=== PATIENT | male | born 1945 | race Caucasian/White ===

== ENCOUNTER 2017-02-09 08:41 | Inpatient (IN) | payer OTHER ==
[2017-02-09] MEDS ORDERED: ONDANSETRON 4 MG/2 ML VIAL IVP PRN (09:05)
[2017-02-09] MEDS ORDERED: ONDANSETRON DISINTEGRATING 4 MG TAB PO PRN (09:05)
[2017-02-09] MEDS ORDERED: ACETAMINOPHEN 325 MG TAB PO PRN (09:05)
[2017-02-09] MEDS ORDERED: LIDOCAINE 2% 5 ML SDV NB ONE ×2 (11:30→14:00)
[2017-02-09 13:17] LABS: INR 1.33 (0.83-1.16); PROTIME(PATIENT) 16.5 SEC (12.0-15.0)
[2017-02-09 13:18] LABS: APTT 69.6 SEC (23.0-38.0)
[2017-02-09 13:42] LABS: ALBUMIN 2.8 g/dL (3.5-5.0); BILIRUBIN,TOTAL 3.1 mg/dL (0.1-1.4); BILIRUBIN-CONJUGATED 0.7 mg/dL (0.0-0.5); BILIRUBIN-UNCONJUGATED 2.4 mg/dL (0.0-1.1); MAGNESIUM 1.7 mg/dL (1.6-2.3)
[2017-02-09 13:53] LABS: COLOR YELLOW; LEUKOCYTE ESTERASE,URINE NEGATIVE (NEGATIVE); NITRITE,URINE NEGATIVE (NEGATIVE)
--- NOTE | 2017-02-09 13:57 | GHP ---
[f rep st] HISTORY AND PHYSICAL DATE OF ADMISSION: 02/09/2017 CHIEF COMPLAINT: Anemia. HISTORY OF PRESENT ILLNESS: This is a 71-year-old male, presenting for anemia and elective chemother apy. The patient was recently hospitalized with nocturnal fevers, and diagnosed with diffuse B-cell lymphoma. The patient is presenting for initiation of chemotherapy and transfusion for anemia. The patient reports that his nighttime fevers have improved in the past several days prior to presentatio n. He denies any recent weight loss. Denies any shortness of breath, chest pain. Has had a mild in termittent headache in the mornings, it resolves with a dose of ibuprofen. No changes in his vision. Was having some shortness of breath, which he reports has been stable. De nies any cough, sputum production. Denies any pleuritic chest pain. Denies any nausea or vomiting. Denies diarrhea. Denies dysuria, hematuria. Denies any rashes. PAST MEDICAL HISTORY: Hypertension. SOCIAL HISTORY: Negative for tobacco, very occasional alcohol. No marijuana or illicit drugs. FAMILY HISTORY: Negative for lymphoma. ADVANCED DIRECTIVES: The patient wishes to be full cor, full tube. His would be his medical de cision maker. PHYSICAL EXAMINATION: VITAL SIGNS: Blood pressure 100/55, heart rate 87, respiratory rate 18, 90% o n room air, 36.7. GENERAL: This is a healthy-appearing, middle-aged male, in no acute distress. HE ENT: Notable for moist mucous membranes. Eye exam is negative for any icterus. CARDIAC: Patient i s regular rate and rhythm. PULMONARY: Clear to auscultation bilaterally. GASTROINTESTINAL: The patient has an obese abdomen. Positive bowel sounds. Soft in all 4 quadrants. MUSCULOSKELETAL: The patient has 2+ pitting edema above the knees, and is symmetric. SKIN: Negative for any rashes . NEUROLOGIC: He is alert and oriented x3. PSYCHIATRIC: He is pleasant and cooperative on interview and examinati on. DATA: INR is 1.33. Last chest imaging on this patient, showed normal cardiac silhouette. Under las t chest imaging that I personally reviewed and interpreted. Hemoglobin is 6.4 last checked, platelet s are 24. ASSESSMENT AND PLAN: This is a 71-year-old male with a new diagnosis, diffuse B-cell lymphoma. 1. Severe anemia. Hemoglobin 6.4. After discussion with Hematology, they do think this is likely r elated to the patient's underlying lymphoma and marrow involvement. We will perform a bone marrow bi opsy today. Patient has been written for a blood transfusion. We will follow his counts as he recei ves chemotherapy. 2. Severe thrombocytopenia, patient does not have any clinical description of blood loss, again we w ill monitor closely during treatment. 3. Diffuse B-cell lymphoma. Patient is presenting to initiate chemotherapy. Oncology and pharmacy b oth consulting and will initiate those medications per their desire protocol today. We will order a transthoracic echocardiogram for screening as he initiates chemo. 4. Bilateral symmetric lower extremity edema. Suspect likely related to volume with his recent hosp italization. However, he is high risk for deep venous thrombosis. We will order bilateral lower ext remity ultrasound to rule this out. Consider low-dose Lasix after the patient has initiated his chem otherapy protocol. 5. History of hypertension. Patient's blood pressure is low if anything currently. We will wait for med reconciliation before starting any medications. We will likely hold any he is on chronically ba sed on a systolic of 100. 6. Prophylaxis. The patient's platelet counts are too low for Lovenox at this time. We will encour age him to ambulate. Can place SCDs. DIET: Regular. DISPOSITION: I expect greater than 2 midnights, as the patient is presenting for chemotherapy and wi th severe anemia requiring transfusion. I have discussed the case with Dr. Ashley from Oncology, he w italo consult, provide bone-marrow biopsy and initiate chemotherapy. /[id number]/MODL
--- NOTE | 2017-02-09 14:47 | GPN ---
[f rep st] PROCEDURE NOTE DATE OF PROCEDURE: 02/09/2017 PROCEDURE PERFORMED: Bone marrow biopsy. INDICATIONS: Staging of lymphoma and evaluation of anemia and thrombocytopenia. DESCRIPTION OF PROCEDURE: Consent was signed. Patient placed in the supine position. The right ashley ac crest was prepped and draped in the usual fashion. Core biopsy was obtained with a good specimen. Aspirate x3 was not successful. Patient did have some pain but, otherwise, tolerated the procedure well. /[id number]/MODL
--- NOTE | 2017-02-09 15:12 | PDMN ---
Medical Necessity Medical necessity: est los>2mn for chemo initiation for new dx diffuse B-cell lymphoma, with severe anemia and thrombocytopenia, bilateral LE edema; , requires BMB, transfusion, r/o DVT, monitor labs; per order and H&P 02/09/17
--- NOTE | 2017-02-09 16:00 | ASMTCMCOM ---
CM Note CM Note Notes: Pt with new dx of diffuse B-cell lymphoma admitted for start of chemo. It is unclear what pt's needs will be at DC. C/M will follow. Date Signed: 02/09/2017 03:59 PM Electronically Signed By:Lynette Mueller LCSW
[2017-02-09] MEDS ORDERED: TETRAHYDROZOLINE 0.05% 15 ML OPHT.BTL OP PRN (16:31)
[2017-02-09] MEDS: ALLOPURINOL 300 MG TAB PO SCH (17:16)
--- NOTE | 2017-02-09 17:25 | ECHO ---
[email or web address] [place] [id number] Main: [phone] Fax: Transthoracic Echocardiogram Name: TESS PATTERSON MR#: [id number] Study Date: 02/09/2017 Study Time: 03:12 PM Date of : 1945 Age: 71 year(s) Height: ( ) Weight: ( ) BSA: Gender: Male Examination: Echo Indication: Image Quality: Contrast: Requested by: Patience Hernandez BP: / Heart Rate: Rhythm: Indication: Procedure Staff Repairer Cylinder Heads: Belen Valenzuela Reading Physician: Selena Ku Requesting Provider: Conclusions: Normal size left ventricle. Normal global systolic LV function. The ejection fraction is estimated to be 70-75 %. No regional wall motion abnormality. Mildly to moderately dilated right ventricle. Normal RV function. The left atrium is mildly dilated. The right atrium is moderately dilated. Mild mitral valve regurgitation is present. Moderate tricuspid regurgitation is present. The pulmonary artery pressure is moderately increased. RVSP is 64mmHG.. Trivial anterior pericardial effusion. Left side pleural effusion. Measurements: Chambers Valvular Assessment AV/MV Valvular Assessment TV/PV Normal Normal Normal Name Value Range Name Value Range Name Value Range EF Range: 70-75 % Continued Measurements: Findings: Left Ventricle: Normal size left ventricle. Normal global systolic LV function. The ejection fraction is estimated to be 70-75 %. No regional wall motion abnormality. Right Ventricle: Patient: TESS PATTERSON Study Date: 02/09/2017 Page 1 of 2 03:12 PM Mildly to moderately dilated right ventricle. Normal RV function. Left Atrium: The left atrium is mildly dilated. Right Atrium: The right atrium is moderately dilated. Mitral Valve: The mitral valve is normal in appearance. Mild mitral valve regurgitation is present. Aortic Valve: The aortic valve is tri-leaflet. Mild aortic cusp calcification is noted. No aortic valve stenosis is present. Tricuspid Valve: The tricuspid valve appears normal. Moderate tricuspid regurgitation is present. The pulmonary artery pressure is moderately increased. RVSP is 64mmHG.. Pulmonic Valve: The pulmonic valve is normal in appearance. Pericardium: Trivial anterior pericardial effusion. Left side pleural effusion. (No Signature Object) Patient: TESS PATTERSON Study Date: 02/09/2017 Page 2 of 2 03:12 PM [id number]
--- NOTE | 2017-02-09 23:08 | GCON ---
[f rep st] CONSULTATION HISTORY OF PRESENT ILLNESS: The patient is a 71-year-old gentleman, who was recently diagnosed with a suspected diffuse large B-cell lymphoma. He presented recently with weight loss, fatigue, night sweats, and was noted to be anemic with fairly significant thrombocytopenia. He lost about 20 pounds and was having fevers. LDH was elevated. A CT scan showed widespread lymphadenopathy and splenomegaly, and a lymph node biopsy was performed. This was felt to represent an atypical Hugo-Brice virus positive lymphoproliferative disorder, highly suggestive of diffuse large B-cell lymphoma. There were scattered large immunoblastic cells in a background of abundant reactive lymphocytes. It was CD20 positive, BCL-6 positive, CD10 positive, PAX-5 positive, and CD30 negative. I am uncertain whether MYC testing has been done or is pending. He is admitted today for a blood transfusion and prechemotherapy testing with the intention of starting him on R- CHOP when that testing has been completed. PAST MEDICAL HISTORY: Significant for skin cancer, nonmelanoma, involving his scalp, ankle and scalp surgery. SOCIAL HISTORY: He is a nonsmoker. He works in [employer]. He drinks 20 drinks per week. FAMILY HISTORY: Significant for CVA, Parkinson's. REVIEW OF SYSTEMS: Negative for 10 systems except as discussed in the HPI. PHYSICAL EXAMINATION: GENERAL: Today, he is a pleasant male. He appears a bit weak. VITAL SIGNS: Blood pressure is 100/55. O2 saturation is 90% on room air. Temp is 97.4. HEENT: He is not icteric. LUNGS: Show somewhat diminished breath sounds. CARDIAC: Shows a soft systolic ejection murmur. ABDOMEN: Shows a palpable spleen tip. LYMPH NODES: He has palpable lymph nodes in the cervical, axillary, and inguinal region, as well as the axilla. CHEST: There is a port in his right chest. MUSCULOSKELETAL: Shows 2+ pedal edema. NEUROLOGIC: Nonfocal. LABORATORY DATA: A CBC from 02/07 shows a white count of 4.87, hemoglobin of 6.4, hematocrit of 19.1, platelets are 24,000. LDH is 971. Uric acid 10.2, glucose 110, albumin 2.9. IMPRESSION: Patient with diffuse large B-cell lymphoma, although are some atypical features, staging is IVB, admitted for initiation of chemotherapy. PLAN: Is to give him R-CHOP after he has had an echocardiogram. I note the serologically testing for hepatitis and HIV have been negative. He is at some risk of tumor lysis and allopurinol has been started. He does have some pedal edema, and I am a bit unsure about his cardiac status, so I am going to hold off on IV fluids, at least for now. A bone marrow biopsy was performed and dictated under separate cover. He will need colony-stimulating factors since the exact duration of his hospital stay is unknown. I will start him on filgrastim at 480 mcg subcu daily starting the day after chemotherapy. /[id number]/MODL MTDD
[2017-02-10] MEDS ORDERED: MAGNESIUM HYDROXIDE 30 ML UDCUP PO PRN (02:31)
[2017-02-10] MEDS ORDERED: LACTULOSE 20 GM/30 ML UDCUP PO PRN (02:31)
[2017-02-10] MEDS ORDERED: POLYETHYLENE GLYCOL 3350 17 GM PKT PO PRN (02:31)
[2017-02-10] MEDS ORDERED: BISACODYL 10 MG SUPP PR PRN (02:31)
[2017-02-10 05:21] LABS: ABSOLUTE NRBC COUNT 0.03 10^3/uL (0-0.01); ADD DIFF? YES; ADD MORPH? YES; ATYPICAL LYMPHOCYTE FLAG 0 (0-99); FRAGMENT RBC FLAG 0 (0-99); HEMATOCRIT 19.7 % (40.0-51.0); LEFT SHIFT FLG 60 (0-99); LIPEMIA HEMOLYSIS FLAG 90 (0-99); MEAN CELL HEMOGLOBIN 31.5 pg (27.9-34.1); MEAN PLATELET VOLUME 10.7 fL (8.7-11.7); NRBC-AUTO% 0.9 % (0.0-0.2); PLATELET CLUMPS FLAG 20 (0-99); RED BLOOD CELL COUNT 2.19 10^6/uL (4.40-6.38); RED CELL DISTRIBUTION WIDTH 18.6 % (11.5-15.2)
[2017-02-10 05:24] LABS: HEMOGLOBIN 6.9 g/dL (13.7-17.5)
[2017-02-10 05:25] LABS: ADD SCAN? NO; PLATELET COUNT 15 10^3/uL (150-400)
[2017-02-10 05:29] LABS: ANION GAP 12 mEq/L (8-16); CALCIUM 8.4 mg/dL (8.5-10.4); CARBON DIOXIDE 24 mEq/l (22-31); CHLORIDE 101 mEq/L (97-110); CREATININE 0.9 mg/dL (0.7-1.3); GLOMERULAR FILTRATION RATE > 60; GLUCOSE 97 mg/dL (70-100); POTASSIUM 3.8 mEq/L (3.5-5.2); SODIUM 137 mEq/L (134-144); URIC ACID 9.2 mg/dL (3.5-8.5)
[2017-02-10 06:26] LABS: ROULEAUX PRESENT
[2017-02-10 06:27] LABS: MACROCYTES 1+; PLATELET ESTIMATE DECREASED (ADEQ); POLYCHROMASIA 1+
[2017-02-10] MEDS: predniSONE 10 MG TAB PO SCH (10:09)
[2017-02-10] MEDS: SENNOSIDES/DOCUSATE SODIUM TAB PO SCH ×2 (10:10→19:58)
[2017-02-10] MEDS: ALLOPURINOL 300 MG TAB PO SCH (10:10)
[2017-02-10 10:28] LABS: ALANINE AMINOTRANSFERASE 43 IU/L (21-72); ALBUMIN 2.6 g/dL (3.5-5.0); ALKALINE PHOSPHATASE 121 IU/L (38-126); ASPARTATE AMINOTRANSFERASE 20 IU/L (17-59); BILIRUBIN,TOTAL 3.6 mg/dL (0.1-1.4); BILIRUBIN-UNCONJUGATED 2.6 mg/dL (0.0-1.1); LACTATE DEHYDROGENASE 907 IU/L (313-618); TOTAL PROTEIN 4.9 g/dL (6.3-8.2)
--- NOTE | 2017-02-10 11:11 | HOSPPROG ---
Hospitalist Progress Note Assessment/Plan: Begin 1109 # Edema - Possibly secondary to anemia and third spacing. No DVT on ultrasound. EF 70% on echo. Lasix 40mg IV X 1 today. # Acute Hypoxic Respiratory Failure - Not on oxygen at home. CXR today. Attempt weaning after diuresis. # Difficue B-Cell Lymphoma - reviewed with Dr. Quinn. Chemotherapy regimen to be initiated. # Anemia - No active bleeding clinically. Recheck in AM. # Thrombocytopenia - monitor for bleeding. # HTN - holding anti-hypertensives. pressures look reasonable. # Bowel/Bladder - bowel regimen if constipation develops. # DVT prophylaxis - no heparin or lovenox in light of low platelets. # Dispo - likely would be able for home when ready. end 1131. Subjective: No acute events overnight. Case reviewed with Dr. Quinn. Pain around bone marrow biopsy sight controlled. I reviewed with him giving a dose of lasix today. Objective: Vital Signs Temp Pulse Resp BP Pulse Ox 38.2 C 103 H 22 H 128/60 H 94 02/10/17 10:18 02/10/17 10:18 02/10/17 10:18 02/10/17 10:18 02/10/17 10:18 Laboratory Results 02/10/17 05:05 02/10/17 05:05 02/09/17 02/10/17 02/11/17 05:59 05:59 05:59 Intake Total 1100 Output Total 200 Balance 900 PT 16.5 SEC (12.0-15.0) H 02/09/17 12:50 INR 1.33 (0.83-1.16) H 02/09/17 12:50 - Physical Exam Constitutional: no apparent distress, appears nourished, not in pain Cardiovascular: regular rate and rhythym, no murmur, rub, or gallop, edema (2+ both lower extremities.) Respiratory: no respiratory distress, no rales or rhonchi, clear to auscultation Gastrointestinal: normoactive bowel sounds, soft, non-tender abdomen, no palpable masses ICD10 Worksheet Patient Problems: Problems Problem Status Onset Acute respiratory failure with hypoxia Acute Edema Acute - ICD10 Problem Qualifiers (1) Edema (2) Acute respiratory failure with hypoxia
[2017-02-10] MEDS ORDERED: FUROSEMIDE 40 MG/4 ML VIAL IVP ONE (11:35)
--- NOTE | 2017-02-10 12:18 | SOAPPROG ---
SOAP Progress Note Assessment/Plan: A/P: * Atypical EBV-positive lymphoproliferative disorder, likely DLBCL: BCL6 positive, BCL2 negative, no MYC available (?performed), CD20+, CD30 neg. Clinically IVB (presuming +marrow involvement). Outside CT (01/20/17) with mediastinal (largest subcarinal 5.4 cm), axillary, intraabdominal, (largest periportal 3.0 cm), iliac, inguinal LAD and splenomegaly (17.8 cm). Bmbx performed yesterday (dry tap), path pending. Elevated uric acid, LDH. Dr. Villagomez has planned R-CHOP. Will try to optimize volume status this morning prior to initiation of therapy. Anticipate likely Rituxan today, CHOP tomorrow given timing. Elevated bili (>3.0) requires dose reduction of Shravan (25% of dose), and VCR. Discussed risk of tumor lysis and complications with patient. Will use single dose rasburicase day 1 p/t Rituxan and follow uric acid for redosing. - R-CHOP with dose-reduced Shravan and VCR - Rasburicase pre-chemo for tumor lysis prophylaxis - follow BMP, phos, Ca, uric acid, LDH - G-CSF following chemo * Pancytopenia: suspect significant marrow involvement (dry tap, NRBCs and metamyelocytes on per smear) and perhaps component of splenic sequestration. 2u PRBC transfusion last night without appropriate rise. No evidence of bleeding. In absence of bleeding and plts >10,000, will hold on plt xfus for now. - once volume status improved, would xfus PRBCs - ANC today 1.28, will need broad-spectrum abx if febrile and ANC<1000 * Volume overload: edema, hypoxia, likely exacerbated by xfus last night. - diurese - CXR * Hyperbilirubinemia: normal liver and biliary system CT 01/20/17. - dose reduction Shravan, VCR 02/10/17 12:31 Subjective: S: Pain at bmbx site. Feeling poorly in general as he has for the past month. O: VS reviewed. 94% on 2L. Gen: A&O, sitting in chair, very talkative. Lungs: reduced BS bilaterally. CV: RRR, 2+ bilat LE edema. Abd: seated exam, protuberant, NT, normal BS. Skin: right port site without erythema, tenderness, ecchymoses. Lymph: bilat axillary and inguinal LAD. Neuro: nonfocal. ECHO: LVEF 70-75%, mild-mod RVD, RVSP 64mmHg. Labs: Laboratory Tests 02/09/17 02/10/17 02/10/17 12:50 05:05 05:05 WBC 3.28 L Hgb 6.9 L Plt Count 15 L* Nucleat RBC Rel Count 0.9 H Seg Neutrophils % 25 Band Neutrophils % 14 Lymphocytes % 40 Monocytes % 17 Metamyelocytes % 4 Absolute Seg Neuts 0.82 L Absolute Band Neuts 0.46 Sodium 137 Potassium 3.8 Chloride 101 Carbon Dioxide 24 Anion Gap 12 BUN 32 H Creatinine 0.9 Estimated GFR > 60 Glucose 97 Uric Acid 9.2 H Calcium 8.4 L Phosphorus 4.2 Total Bilirubin Conjugated Bilirubin Unconjugated Bilirubin AST ALT Alkaline Phosphatase Lactate Dehydrogenase Albumin Hepatitis A IgM Ab NEGATIVE Hep Bs Antigen NEGATIVE Hep B Core IgM Ab NEGATIVE Hepatitis C Antibody NEGATIVE 02/10/17 05:05 WBC Hgb Plt Count Nucleat RBC Rel Count Seg Neutrophils % Band Neutrophils % Lymphocytes % Monocytes % Metamyelocytes % Absolute Seg Neuts Absolute Band Neuts Sodium Potassium Chloride Carbon Dioxide Anion Gap BUN Creatinine Estimated GFR Glucose Uric Acid Calcium Phosphorus Total Bilirubin 3.6 H Conjugated Bilirubin 1.0 H Unconjugated Bilirubin 2.6 H AST 20 ALT 43 Alkaline Phosphatase 121 Lactate Dehydrogenase 907 H Albumin 2.6 L Hepatitis A IgM Ab Hep Bs Antigen Hep B Core IgM Ab Hepatitis C Antibody Objective: Vital Signs Temp Pulse Resp BP Pulse Ox 38.2 C 103 H 22 H 128/60 H 94 02/10/17 10:18 02/10/17 10:18 02/10/17 10:18 02/10/17 10:18 02/10/17 10:18 Laboratory Results 02/10/17 05:05 02/10/17 05:05 02/09/17 02/10/17 02/11/17 05:59 05:59 05:59 Intake Total 1100 Output Total 200 Balance 900 PT 16.5 SEC (12.0-15.0) H 02/09/17 12:50 INR 1.33 (0.83-1.16) H 02/09/17 12:50 ICD10 Worksheet Patient Problems: Problems Problem Status Onset Acute respiratory failure with hypoxia Acute Edema Acute
[2017-02-10 13:23] LABS: PLATELET COUNT 17 10^3/uL (150-400)
[2017-02-10 14:14] LABS: APTT 36.5 SEC (23.0-38.0); INR 1.31 (0.83-1.16); PROTIME(PATIENT) 16.3 SEC (12.0-15.0)
[2017-02-10 14:15] LABS: FIBRINOGEN 182 mg/dL (214-456)
[2017-02-10] MEDS ORDERED: RASBURICASE 3 MG in NS 50 ML IV ONE (15:45)
[2017-02-10] MEDS ORDERED: MEPERIDINE 25 MG/ML SYR IVP PRN (15:47)
[2017-02-10] MEDS ORDERED: ACETAMINOPHEN 325 MG TAB PO PRN (15:47)
[2017-02-10] MEDS ORDERED: NS 500 ML IV PRN (15:47)
[2017-02-10] MEDS ORDERED: DEXAMETHASONE 10 MG/ML VIAL IVP PRN (15:47)
[2017-02-10] MEDS ORDERED: NS 1,000 ML IV PRN (15:47)
[2017-02-10] MEDS ORDERED: HYDROCORTISONE 100 MG/2 ML VIAL IVP PRN (15:47)
[2017-02-10] MEDS ORDERED: ACETAMINOPHEN 325 MG TAB PO ONE (17:00)
[2017-02-10] MEDS ORDERED: RITUXIMAB IV ONE (17:30)
[2017-02-10] MEDS ORDERED: NS IV ONE (17:30)
--- NOTE | 2017-02-10 18:59 | CPEKG ---
Heart Rate: 136 RR Interval: 441 QRSD Interval: 80 QT Interval: 316 QTC Interval: 476 QRS [place]: 46 T Wave [place]: 1 EKG Severity - ABNORMAL ECG - EKG Impression: ATRIAL FIBRILLATION EKG Impression: BORDERLINE R WAVE PROGRESSION, ANTERIOR LEADS EKG Impression: BORDERLINE PROLONGED QT INTERVAL Electronically Signed By: Silvestre Cleary 10-Feb-2017 19:24:30
[2017-02-10] MEDS ORDERED: NS 1,000 ML IV ONE (19:08)
[2017-02-10] MEDS ORDERED: DILTIAZEM 125 MG in D5W 125 ML IV SCH (19:15)
--- NOTE | 2017-02-10 19:24 | HOSPPROG ---
Hospitalist Progress Note Assessment/Plan: Called to bedside by RN for HR 140 after starting Rituxan Patient comfortable, no different symptoms, denies CP/SOB; received lasix today HR 140, BP 100/56 NAD, mentating well irreg, no MRG CTAB I/O: not recorded labs: pancytopenia, normal renal function ECG with a-fib, Q's in V1/V2 echo reviewed, most notable for RVSP 64mmHg Impression: 1. a-fib, RVR - potential triggers include Rituxan, Rasburicase, anemia 2. borderline hypotension 3. pancytopenia 4. lymphoproliferative d/o Plan: - transfer to PCU for tele - stat H/H; trend trops - 1L NS bolus - transfuse 1U PRBC - start dilt gtt if BP tolerates, if not then amiodarone 35 minutes of floor cc time Objective: Vital Signs Temp Pulse Resp BP Pulse Ox 36.9 C 141 H 20 100/56 L 96 02/10/17 18:35 02/10/17 18:35 02/10/17 18:35 02/10/17 18:35 02/10/17 18:35 Laboratory Results 02/10/17 13:00 02/10/17 05:05 02/09/17 02/10/17 02/11/17 05:59 05:59 05:59 Intake Total 1100 500 Output Total 200 1225 Balance 900 -725 PT 16.3 SEC (12.0-15.0) H 02/10/17 13:00 INR 1.31 (0.83-1.16) H 02/10/17 13:00 ICD10 Worksheet Patient Problems: Problems Problem Status Onset Acute respiratory failure with hypoxia Acute Edema Acute
[2017-02-10 19:38] LABS: HEMATOCRIT 19.5 % (40.0-51.0)
[2017-02-10 19:45] LABS: HEMOGLOBIN 6.8 g/dL (13.7-17.5)
[2017-02-11 03:59] LABS: ADD DIFF? YES; ADD MORPH? NO; ATYPICAL LYMPHOCYTE FLAG 0 (0-99); FRAGMENT RBC FLAG 0 (0-99); HEMATOCRIT 21.5 % (40.0-51.0); HEMOGLOBIN 7.5 g/dL (13.7-17.5); LEFT SHIFT FLG 40 (0-99); LIPEMIA HEMOLYSIS FLAG 90 (0-99); MEAN CELL HEMOGLOBIN 31.4 pg (27.9-34.1); MEAN CELL HEMOGLOBIN CONCENTR. 34.9 g/dL (32.4-36.7); MEAN PLATELET VOLUME 11.1 fL (8.7-11.7); PLATELET CLUMPS FLAG 10 (0-99); RED BLOOD CELL COUNT 2.39 10^6/uL (4.40-6.38); RED CELL DISTRIBUTION WIDTH 18.3 % (11.5-15.2)
[2017-02-11 04:07] LABS: ADD SCAN? NO
[2017-02-11 04:09] LABS: PLATELET COUNT 13 10^3/uL (150-400)
[2017-02-11 04:12] LABS: ALANINE AMINOTRANSFERASE 45 IU/L (21-72); ALBUMIN 2.4 g/dL (3.5-5.0); ALKALINE PHOSPHATASE 106 IU/L (38-126); ANION GAP 11 mEq/L (8-16); ASPARTATE AMINOTRANSFERASE 16 IU/L (17-59); BILIRUBIN,TOTAL 3.2 mg/dL (0.1-1.4); BILIRUBIN-CONJUGATED 0.7 mg/dL (0.0-0.5); BILIRUBIN-UNCONJUGATED 2.5 mg/dL (0.0-1.1); CALCIUM 7.8 mg/dL (8.5-10.4); CARBON DIOXIDE 26 mEq/l (22-31); CHLORIDE 101 mEq/L (97-110); CREATININE 0.8 mg/dL (0.7-1.3); GLOMERULAR FILTRATION RATE > 60; GLUCOSE 112 mg/dL (70-100); LACTATE DEHYDROGENASE 897 IU/L (313-618); POTASSIUM 3.8 mEq/L (3.5-5.2); SODIUM 138 mEq/L (134-144); TOTAL PROTEIN 4.5 g/dL (6.3-8.2); URIC ACID 5.4 mg/dL (3.5-8.5)
[2017-02-11 04:22] LABS: TROPONIN I < 0.012 ng/mL (0.000-0.034)
[2017-02-11 04:37] LABS: MACROCYTES 1+; PLATELET ESTIMATE DECREASED (ADEQ); POLYCHROMASIA 1+
[2017-02-11] MEDS ORDERED: AMIODARONE HCL 200 ML IV ONE (08:58)
[2017-02-11] MEDS ORDERED: AMIODARONE HCL 100 ML IV ONE (08:58)
--- NOTE | 2017-02-11 09:04 | HOSPPROG ---
Hospitalist Progress Note Assessment/Plan: # Afib - with RVR. Blood pressures marginal on current diltiazem drip. Will stop diltiazem drip and change to amiodarone. Continue telemetry monitoring. Not a candidate for anticoagulation in light of thrombocytopenia. # Edema - Possibly secondary to anemia and third spacing. No DVT on ultrasound. EF 70% on echo. Repeat Lasix 40mg IV X 1 today if blood pressure can tolerate. # Right Pleural Effusion - repeat CXR today. Consider thoracentesis. # Acute Hypoxic Respiratory Failure - Not on oxygen at home. Wean as able depending on diuresis. # Difficue B-Cell Lymphoma - reviewed with Dr. Quinn. Chemotherapy regimen to be initiated. # Anemia - No active bleeding clinically. Patient was transfused one unit overnight . # Thrombocytopenia - monitor for bleeding. # Bowel/Bladder - bowel regimen if constipation develops. # DVT prophylaxis - no heparin or lovenox in light of low platelets. # Dispo - patient needing ongoing telemetry monitoring. Subjective: Patient developed afib with RVR overnight and was started on diltizem drip. No complaints of shortness of breath or productive cough. Case reviewed with Dr. Quinn this morning. Objective: Vital Signs Temp Pulse Resp BP Pulse Ox 36.8 C 103 H 14 92/71 L 96 02/11/17 07:36 02/11/17 07:36 02/11/17 07:36 02/11/17 08:57 02/11/17 07:36 Laboratory Results 02/11/17 03:45 02/11/17 03:45 02/10/17 02/11/17 02/12/17 05:59 05:59 05:59 Intake Total 1100 900 Output Total 200 2275 Balance 900 -1375 PT 16.3 SEC (12.0-15.0) H 02/10/17 13:00 INR 1.31 (0.83-1.16) H 02/10/17 13:00 - Physical Exam Constitutional: no apparent distress, appears nourished, not in pain Cardiovascular: no murmur, rub, or gallop, irregularly irregular, edema ( pitting bilateral lower extremities), No regular rate and rhythym Respiratory: no respiratory distress, no rales or rhonchi, clear to auscultation , other (diminished breath sounds at right lung base) ICD10 Worksheet Patient Problems: Problems Problem Status Onset Acute respiratory failure with hypoxia Acute Edema Acute - ICD10 Problem Qualifiers (1) Edema (2) Acute respiratory failure with hypoxia
[2017-02-11] MEDS ORDERED: ACETAMINOPHEN 325 MG TAB PO ONE (09:05)
[2017-02-11] MEDS ORDERED: diphenhydrAMINE 25 MG CAP PO ONE (09:05)
[2017-02-11] MEDS: SENNOSIDES/DOCUSATE SODIUM TAB PO SCH ×2 (09:26→20:50)
[2017-02-11] MEDS: predniSONE 10 MG TAB PO SCH (09:27)
[2017-02-11] MEDS: ALLOPURINOL 300 MG TAB PO SCH (09:27)
--- NOTE | 2017-02-11 11:22 | SOAPPROG ---
SOAP Progress Note Assessment/Plan: A/P: * Atypical EBV-positive lymphoproliferative disorder, likely DLBCL: BCL6 positive, BCL2 negative, no MYC available (?performed), CD20+, CD30 neg. Clinically IVB (presuming +marrow involvement). Outside CT (01/20/17) with mediastinal (largest subcarinal 5.4 cm), axillary, intraabdominal, (largest periportal 3.0 cm), iliac, inguinal LAD and splenomegaly (17.8 cm). Bmbx performed yesterday (dry tap), path pending. Elevated uric acid, LDH pre- chemo. Dr. Villagomez has planned R-CHOP. Elevated bili (>3.0) requires dose reduction of Shravan (25% of dose), and VCR. Discussed risk of tumor lysis and complications with patient. Doubt afib due to Rituxan reaction as he has multiple contributors and may have a prior history. When HR controlled, start Rituxan. Likely CHOP tomorrow. - R-CHOP with dose-reduced Shravan and VCR - Received rasburicase pre-Rituxan 02/10 for tumor lysis prophylaxis, recheck uric acid as prior sample not on ice (rasburicase continues to lower uric acid ex vivo) - follow BMP, phos, Ca, uric acid, LDH - G-CSF following chemo * Afib: Normal ECHO. Trop neg thus far. Likely multifactorial (anemia, hypoxia, effusion, elevated right heart pressure). Changing dilt to amio in hopes of converting and for less effect on BP. If prolonged, not a candidate for anticoagulation (platelets). * Pancytopenia: suspect significant marrow involvement (dry tap, NRBCs and metamyelocytes on per smear). 1u PRBC transfusion last night. No evidence of bleeding. - Given plts near 10,000, will go ahead with plt xfus today. - Given afib, would try to transfuse PRBCs at some point today - ANC today 1.0, will need broad-spectrum abx if febrile and ANC<1000 * ?RLL consolidation vs. effusion: single view CXR. Appearance and exam c/w effusion (left effusion by ECHO). AF, no cough, O2 requirement remains minimal. - Try to get good quality CXR - If fever, broad-spectrum abx - May need to tap if O2 requirement increases * Volume overload: hypoxia improved. - diurese as able, may need yousif given urinary retention * Hyperbilirubinemia: normal liver and biliary system CT 01/20/17. - dose reduction Shravan, VCR 02/11/17 11:09 Subjective: S: No CP, increased dyspnea. Bmbx site sore. Overall feels pretty good. , Judi, present. O: VS reviewed. Gen: very talkative, NAD. Lungs: decreased BS bilateral bases. CV: IRRR, 2+ lower ext edema, but improved from yesterday. Abd: nontender. Skin: port site ok, bmbx site without erythema or ecchymoses. No petechiae. Neuro: nonfocal. Single view CXR (02/09/17): ?RLL consolidation. Laboratory Tests 02/11/17 02/11/17 03:45 03:45 WBC 2.07 L Hgb 7.5 L Plt Count 13 L* Absolute Seg Neuts 0.77 L Absolute Band Neuts 0.23 Sodium 138 Potassium 3.8 Chloride 101 Carbon Dioxide 26 Anion Gap 11 BUN 29 H Creatinine 0.8 Glucose 112 H Uric Acid 5.4 D Calcium 7.8 L Phosphorus 4.7 H Total Bilirubin 3.2 H Conjugated Bilirubin 0.7 H Unconjugated Bilirubin 2.5 H AST 16 L ALT 45 Alkaline Phosphatase 106 Lactate Dehydrogenase 897 H Troponin I < 0.012 Albumin 2.4 L Calcium corrects to 9.1 for albumin. Objective: Vital Signs Temp Pulse Resp BP Pulse Ox 36.8 C 119 H 14 101/65 96 02/11/17 07:36 02/11/17 09:53 02/11/17 07:36 02/11/17 09:53 02/11/17 07:36 Laboratory Results 02/11/17 03:45 02/11/17 03:45 02/10/17 02/11/17 02/12/17 05:59 05:59 05:59 Intake Total 1100 900 Output Total 200 2275 Balance 900 -1375 PT 16.3 SEC (12.0-15.0) H 02/10/17 13:00 INR 1.31 (0.83-1.16) H 02/10/17 13:00 ICD10 Worksheet Patient Problems: Problems Problem Status Onset Acute respiratory failure with hypoxia Acute Edema Acute
--- NOTE | 2017-02-11 15:55 | ASMTCMCOM ---
CM Note CM Note Notes: 02/11/2017 Case Management Note Met w/ pt and [facility] ([phone]) to discuss PT recommendation for SNF rehab. Provided details on Home Care vs SNF rehab. After discussion, pt requested time to think about it. Case Management will meet w/pt tomorrow to discuss preferred options. Case Management to follow. Date Signed: 02/11/2017 03:53 PM Electronically Signed By:Whitney Sullivan RN
[2017-02-11] MEDS ORDERED: AMIODARONE HCL 540 MG in D5W 300 ML IV ONE (16:00)
[2017-02-12 06:33] LABS: ABSOLUTE NRBC COUNT 0.02 10^3/uL (0-0.01); ADD DIFF? YES; ADD MORPH? NO; ATYPICAL LYMPHOCYTE FLAG 0 (0-99); FRAGMENT RBC FLAG 0 (0-99); HEMATOCRIT 20.2 % (40.0-51.0); LEFT SHIFT FLG 40 (0-99); LIPEMIA HEMOLYSIS FLAG 90 (0-99); MEAN CELL HEMOGLOBIN 30.7 pg (27.9-34.1); MEAN CELL HEMOGLOBIN CONCENTR. 34.7 g/dL (32.4-36.7); MEAN CELL VOLUME 88.6 fL (81.5-99.8); MEAN PLATELET VOLUME 11.1 fL (8.7-11.7); NRBC-AUTO% 0.9 % (0.0-0.2); PLATELET CLUMPS FLAG 0 (0-99); RED BLOOD CELL COUNT 2.28 10^6/uL (4.40-6.38); RED CELL DISTRIBUTION WIDTH 18.8 % (11.5-15.2)
[2017-02-12 06:43] LABS: ADD SCAN? NO
[2017-02-12 06:44] LABS: PLATELET COUNT 20 10^3/uL (150-400)
[2017-02-12 07:24] LABS: ANION GAP 9 mEq/L (8-16); CARBON DIOXIDE 23 mEq/l (22-31); CHLORIDE 99 mEq/L (97-110); CREATININE 0.8 mg/dL (0.7-1.3); GLOMERULAR FILTRATION RATE > 60; GLUCOSE 95 mg/dL (70-100); POTASSIUM 3.6 mEq/L (3.5-5.2); SODIUM 131 mEq/L (134-144)
[2017-02-12 07:25] LABS: ALBUMIN 2.8 g/dL (3.5-5.0); ALKALINE PHOSPHATASE 109 IU/L (38-126); ASPARTATE AMINOTRANSFERASE 17 IU/L (17-59); BILIRUBIN,TOTAL 3.4 mg/dL (0.1-1.4); CALCIUM 7.5 mg/dL (8.5-10.4); TOTAL PROTEIN 4.9 g/dL (6.3-8.2); URIC ACID 4.2 mg/dL (3.5-8.5)
[2017-02-12 07:26] LABS: ALANINE AMINOTRANSFERASE 36 IU/L (21-72); BILIRUBIN-CONJUGATED 0.8 mg/dL (0.0-0.5); BILIRUBIN-UNCONJUGATED 2.6 mg/dL (0.0-1.1); LACTATE DEHYDROGENASE 997 IU/L (313-618)
[2017-02-12 07:54] LABS: MACROCYTES 1+; PLATELET ESTIMATE DECREASED (ADEQ); POLYCHROMASIA 1+
[2017-02-12 07:55] LABS: ROULEAUX PRESENT
--- NOTE | 2017-02-12 08:37 | HOSPPROG ---
Hospitalist Progress Note Assessment/Plan: # Afib - with RVR. Patient converted overnight to NSR. Case discussed with Dr. García. I recommend we continue with amiodarone drip and await recommendations from cardiology. No aspirin or anticoagulation in light of thrombocytopenia. Blood pressures were marginal on current diltiazem drip and with the need for diuresis we changed it to amiodarone. Echo done 02/09. TSH ordered. # Edema - Possibly secondary to anemia and third spacing. No DVT on ultrasound. EF 70% on echo. Continue Lasix 40mg IV daily if blood pressure can tolerate. I will not start daily potassium as possible TLS with chemotherapy. # Right Pleural Effusion - stable to slightly improved by exam and CXR. Continue attempts to manage with diuresis as thoracentesis may be complicated by thrombocytopenia. # Acute Hypoxic Respiratory Failure - Not on oxygen at home. Wean as able depending on diuresis. # Difficue B-Cell Lymphoma - reviewed with Dr. Quinn over the weekend and Dr. Duggan this morning. The plan is to proceed with chemotherapy today. # Anemia - No active bleeding clinically. Patient was transfused one unit over the weekend. # Thrombocytopenia - monitor for bleeding. I'll defer to oncology on transfusing any blood products. # Bowel/Bladder - patient is feeling constipated as requesting suppository. Reviewed with Dr. Duggan and will prescribe Dulcolax. # DVT prophylaxis - no heparin or lovenox in light of low platelets. # Dispo - patient needing ongoing telemetry monitoring. Subjective: Patient converted overnight to NSR. No complaints of breathing difficulties or chest pain. He has noted worsening LE edema. Cased reviewed with cardiology and oncology. Objective: Vital Signs Temp Pulse Resp BP Pulse Ox 36.8 C 76 12 101/71 98 02/11/17 23:41 02/12/17 04:00 02/11/17 23:41 02/12/17 04:00 02/12/17 04:00 Laboratory Results 02/12/17 06:20 02/12/17 06:20 02/11/17 02/12/17 02/13/17 05:59 05:59 05:59 Intake Total 900 1358 Output Total 2275 750 Balance -1375 608 PT 16.3 SEC (12.0-15.0) H 02/10/17 13:00 INR 1.31 (0.83-1.16) H 02/10/17 13:00 - Physical Exam Constitutional: no apparent distress, appears nourished, not in pain Cardiovascular: regular rate and rhythym, no murmur, rub, or gallop, edema (2+ pitting bilateral lower extremities) Respiratory: no respiratory distress, no rales or rhonchi, clear to auscultation , other (diminished breath sounds at right lung base slightly better than yesterday.) Gastrointestinal: normoactive bowel sounds, soft, non-tender abdomen, no palpable masses Genitourinary: No yousif in urethra ICD10 Worksheet Patient Problems: Problems Problem Status Onset Acute respiratory failure with hypoxia Acute Edema Acute - ICD10 Problem Qualifiers (1) Edema (2) Acute respiratory failure with hypoxia
[2017-02-12] MEDS: ALLOPURINOL 300 MG TAB PO SCH (08:57)
[2017-02-12] MEDS: FUROSEMIDE 40 MG/4 ML VIAL IVP SCH (08:57)
[2017-02-12] MEDS: SENNOSIDES/DOCUSATE SODIUM TAB PO SCH ×2 (08:58→21:13)
--- NOTE | 2017-02-12 09:31 | SOAPPROG ---
SOAP Progress Note Assessment/Plan: Assessment: 1) Diffuse large b cell lymphoma 2) Pancytopenia secondary to marrow involvement from #1 3) A -fib 4) Transaminitis secondary to #1 5) Bilateral pleural effusions Plan: Patient now back in sinus rhythm. Overall he feels better. At this point the most important thing is to move forward with treatment. Case d /w nursing here and with nursing staff on . Plan to proceed with R-CHOP cycle #1 today. Chemotherapy doses reduced for hepatic transaminitis. He received a dose of Rasburicase on Sunday. He is on Allopurinol now with a normal uric acid level. His anemia is minimally symptomatic. Will hold off on transfusion of blood products today. Will recheck tumor lysis labs this evening and again in the morning. Will plan to start G-CSF therapy tomorrow. long term care phlebotomist rate control med per cardiology. Plan d/w patient and hospitalist service. 02/12/17 09:06 Subjective: Feels better today. He is back in sinus rhythm. Objective: Vital Signs Temp Pulse Resp BP Pulse Ox 36.8 C 76 12 101/71 98 02/11/17 23:41 02/12/17 04:00 02/11/17 23:41 02/12/17 04:00 02/12/17 04:00 Laboratory Results 02/12/17 06:20 02/12/17 06:20 02/11/17 02/12/17 02/13/17 05:59 05:59 05:59 Intake Total 900 1358 Output Total 2275 750 Balance -1375 608 PT 16.3 SEC (12.0-15.0) H 02/10/17 13:00 INR 1.31 (0.83-1.16) H 02/10/17 13:00 - Time Spent With Patient Time Spent With Patient: 45 minutes Physical Exam - Physical Exam General Appearance: alert, no apparent distress EENT: PERRL/EOMI Respiratory: other (Decreased at both bases) Cardiac/Chest: regular rate, rhythm Abdomen: non-tender, soft Extremities: other (2 plus pitting edema both lower extremities) Neuro/Psych: alert, normal mood/affect ICD10 Worksheet Patient Problems: Problems Problem Status Onset Acute respiratory failure with hypoxia Acute Edema Acute
[2017-02-12] MEDS: predniSONE 10 MG TAB PO SCH (09:52)
[2017-02-12] MEDS ORDERED: BISACODYL 10 MG SUPP PR ONE (10:01)
--- NOTE | 2017-02-12 10:07 | PDCARCONS ---
Cardiology Consult Reason for Consult: Atrial fibrillation with rapid ventricular response in setting of new B cell lymphoma diagnosis Chief Complaint: shortness of breath and nocturnal pyrexia Requesting Physician: Hospitalist team History of Present Illness: Patient is a 71 y/o male with history of pAF (does not appear to be significant issues in the recent past) and newly diagnosed diffuse B cell lymphoma (with close Heme/Onc following and plans to start chemotherapy today), with request for cardiology input given episode of atrial fibrillation with rapid ventricular response. Over the weekend, trial with IV CCB was started, but given the anemia noted, this compromised the patient's blood pressure, and curbside with cardiology resulted in switch to Amiodarone. About 4 am this morning, the patient converted to normal sinus rhythm, and reportedly remained with this rhythm. No cardiovascular complaints have been noted today - if anything, the patient's chief complaint is constipation. No chest pains or pressure, no PND or orthopnea. No fevers, chills, nausea today. Echocardiogram (as below) with grossly normal left ventricular systolic function. Weights are up today in comparison to admission weight, and patient continues to have edema on physical examination today. Suspect some degree of third spacing, which may improve with reestablishment of normal sinus rhythm and treatment of the degree of anemia noted. Remainder of 12 point review of systems (with emphasis on cardiovascular symptoms) is unremarkable History Information - Allergies/Home Medication List Allergies/Adverse Reactions: No Known Allergies Allergy (Unverified 11/23/12 10:52) Home Medications: Hydrochlorothiazide [Hydrochlorothiazide 12.5 MG (RX)] 12.5 mg PO DAILY [Last Taken 02/08/17] Acetaminophen [Tylenol ES 500 mg (*)] 500 mg PO DAILY PRN 02/09/17 [Last Taken Unknown] Ibuprofen [Advil] 200 mg PO DAILY PRN 02/09/17 [Last Taken Unknown] Tetrahydrozoline 0.05% [Visine (*)] 1 drop OP DAILY PRN 02/09/17 [Last Taken Unknown] predniSONE [Prednisone] 30 mg PO DAILY 02/09/17 [Last Taken 02/08/17] I have personally reviewed and updated: family history, medical history, social history, surgical history Past Medical History: - Past Medical History atrial fibrillation - Surgical History Reports: no pertinent surgical hx - Family History Positive for: non-pertinent - Social History Smoking Status: Never smoked Alcohol Use: None Drug Use: None Cardiac History - Cardiac History Cardiac Risk Factors: age > 65, male Timing/Duration: Unsure Severity: moderate Severity Scale: 4 Activities at Onset: none Modifying Factors: improves with: rest Associated Symptoms: fever/chills, headaches, weakness Physical Exam Physical Exam: Temp Pulse Resp BP Pulse Ox 36.7 C 88 20 117/68 97 02/12/17 08:00 02/12/17 08:00 02/12/17 08:00 02/12/17 08:00 02/12/17 08:00 O2 (L/minute) 2 Constitutional: no apparent distress, appears nourished, not in pain Eyes: PERRL Ears, Nose, Mouth, Throat: moist mucous membranes, hearing normal, ears appear normal Cardiovascular: regular rate and rhythym, no murmur, rub, or gallop, No JVD Peripheral Pulses: 2+: dorsalis-pedis (R), dorsalis-pedis (L) Respiratory: no respiratory distress, no rales or rhonchi Gastrointestinal: distension Skin: warm, other (edema to bilateral lower extremities) Musculoskeletal: full muscle strength, no muscle tenderness Neurologic: AAOx3, sensation intact bilaterally, CN II-XII Intact Psychiatric: interacting appropriately, not anxious, not encephalopathic Lab and Imaging 02/12/17 06:20 02/12/17 06:20 WBC 2.35 10^3/uL (3.80-9.50) L 02/12/17 06:20 RBC 2.28 10^6/uL (4.40-6.38) L 02/12/17 06:20 Hgb 7.0 g/dL (13.7-17.5) L 02/12/17 06:20 Hct 20.2 % (40.0-51.0) L 02/12/17 06:20 MCV 88.6 fL (81.5-99.8) 02/12/17 06:20 MCH 30.7 pg (27.9-34.1) 02/12/17 06:20 MCHC 34.7 g/dL (32.4-36.7) 02/12/17 06:20 RDW 18.8 % (11.5-15.2) H 02/12/17 06:20 Plt Count 20 10^3/uL (150-400) L* 02/12/17 06:20 MPV 11.1 fL (8.7-11.7) 02/12/17 06:20 Neut % (Auto) Not Reported 02/12/17 06:20 Lymph % (Auto) Not Reported 02/12/17 06:20 [place] % (Auto) Not Reported 02/12/17 06:20 Eos % (Auto) Not Reported 02/12/17 06:20 Baso % (Auto) Not Reported 02/12/17 06:20 Nucleat RBC Rel Count 0.9 % (0.0-0.2) H 02/12/17 06:20 Absolute Neuts (auto) Not Reported 02/12/17 06:20 Absolute Lymphs (auto) Not Reported 02/12/17 06:20 Absolute Monos (auto) Not Reported 02/12/17 06:20 Absolute Eos (auto) Not Reported 02/12/17 06:20 Absolute Basos (auto) Not Reported 02/12/17 06:20 Absolute Nucleated RBC 0.02 10^3/uL (0-0.01) H 02/12/17 06:20 Immature Gran % Not Reported 02/12/17 06:20 Seg Neutrophils % 34 % 02/12/17 06:20 Band Neutrophils % 8 % 02/12/17 06:20 Lymphocytes % 36 % 02/12/17 06:20 Monocytes % 14 % 02/12/17 06:20 Eosinophils % 1 % 02/12/17 06:20 Metamyelocytes % 3 % 02/12/17 06:20 Myelocytes % 4 % 02/12/17 06:20 Immature Gran # Not Reported 02/12/17 06:20 Absolute Seg Neuts 0.80 10^/uL (1.70-6.50) L 02/12/17 06:20 Absolute Band Neuts 0.19 10^3/uL (0.00-0.70) 02/12/17 06:20 Absolute Lymphocytes 0.85 10^3/uL (1.00-3.00) L 02/12/17 06:20 Absolute Monocytes 0.33 10^3/uL (0.30-0.80) 02/12/17 06:20 Absolute Eosinophils 0.02 10^3/uL (0.03-0.40) L 02/12/17 06:20 Absolute Metamyelocyte 0.07 10^3/mL (0.00-0.00) H 02/12/17 06:20 Absolute Myelocytes 0.09 10^3/mL (0.00-0.00) H 02/12/17 06:20 Nucleated RBCs 4 /100 WBC (0-0) H 02/10/17 05:05 Platelet Estimate DECREASED (ADEQ) L 02/12/17 06:20 Normal RBC Morphology SEE COMMENT (NORMAL) 02/10/17 13:00 Polychromasia 1+ H 02/12/17 06:20 Oval Macrocytes 1+ H 02/12/17 06:20 Rouleaux PRESENT H 02/12/17 06:20 Smear Review By Mary MUJICA MD 02/12/17 06:20 PT 16.3 SEC (12.0-15.0) H 02/10/17 13:00 INR 1.31 (0.83-1.16) H 02/10/17 13:00 APTT 36.5 SEC (23.0-38.0) D 02/10/17 13:00 Fibrinogen 182 mg/dL (214-456) L 02/10/17 13:00 D-Dimer 2.71 ug/mLFEU (0.00-0.50) H 02/10/17 13:00 Coag Pathologist Com Levi JOHNS MD 02/10/17 13:00 Sodium 131 mEq/L (134-144) L 02/12/17 06:20 Potassium 3.6 mEq/L (3.5-5.2) 02/12/17 06:20 Chloride 99 mEq/L (97-110) 02/12/17 06:20 Carbon Dioxide 23 mEq/l (22-31) 02/12/17 06:20 Anion Gap 9 mEq/L (8-16) 02/12/17 06:20 BUN 27 mg/dL (7-23) H 02/12/17 06:20 Creatinine 0.8 mg/dL (0.7-1.3) 02/12/17 06:20 Estimated GFR > 60 02/12/17 06:20 Glucose 95 mg/dL (70-100) 02/12/17 06:20 Uric Acid 4.2 mg/dL (3.5-8.5) 02/12/17 06:20 Calcium 7.5 mg/dL (8.5-10.4) L 02/12/17 06:20 Phosphorus 3.3 mg/dL (2.5-4.5) D 02/12/17 06:20 Magnesium 1.7 mg/dL (1.6-2.3) 02/09/17 12:50 Total Bilirubin 3.4 mg/dL (0.1-1.4) H 02/12/17 06:20 Conjugated Bilirubin 0.8 mg/dL (0.0-0.5) H 02/12/17 06:20 Unconjugated Bilirubin 2.6 mg/dL (0.0-1.1) H 02/12/17 06:20 AST 17 IU/L (17-59) 02/12/17 06:20 ALT 36 IU/L (21-72) 02/12/17 06:20 Alkaline Phosphatase 109 IU/L (38-126) 02/12/17 06:20 Lactate Dehydrogenase 997 IU/L (313-618) H 02/12/17 06:20 Troponin I < 0.012 ng/mL (0.000-0.034) 02/12/17 06:20 Total Protein 4.9 g/dL (6.3-8.2) L 02/12/17 06:20 Albumin 2.8 g/dL (3.5-5.0) L 02/12/17 06:20 Urine Color YELLOW 02/09/17 12:30 Urine Appearance CLEAR 02/09/17 12:30 Urine pH 5.0 (5.0-7.5) 02/09/17 12:30 Ur Specific [place] 1.016 (1.002-1.030) 02/09/17 12:30 Urine Protein NEGATIVE (NEGATIVE) 02/09/17 12:30 Urine Ketones NEGATIVE (NEGATIVE) 02/09/17 12:30 Urine Blood NEGATIVE (NEGATIVE) 02/09/17 12:30 Urine Nitrate NEGATIVE (NEGATIVE) 02/09/17 12:30 Urine Bilirubin NEGATIVE (NEGATIVE) 02/09/17 12:30 Urine Urobilinogen NEGATIVE EU (0.2-1.0) 02/09/17 12:30 Ur Leukocyte Esterase NEGATIVE (NEGATIVE) 02/09/17 12:30 Urine Glucose NEGATIVE (NEGATIVE) 02/09/17 12:30 Hepatitis A IgM Ab NEGATIVE (NEGATIVE) 02/09/17 12:50 Hep Bs Antigen NEGATIVE (NEGATIVE) 02/09/17 12:50 Hep B Core IgM Ab NEGATIVE (NEGATIVE) 02/09/17 12:50 Hepatitis C Antibody NEGATIVE (NEGATIVE) 02/09/17 12:50 Patient ABO/Rh A NEGATIVE 02/08/17 15:10 Antibody Screen NEGATIVE 02/08/17 15:10 Crossmatch IS Only See Detail 02/08/17 15:10 Visualized and Interpreted Chest x-ray results: Yes Chest X-ray Interpretation: infiltrate Visualized and Interpreted EKG results: Yes EKG Interpretation: Positive for: other (atrial fibrillation with rapid ventricular response (on last ECG)) Telemetry: normal sinus rhythm Echocardiogram: Normal LVEF (70-75%) with mild to mod RV dilation, mild LAE, mod NGUYEN, mild MR, mod TR, RVSP of 60-65 mm Hg A/P Assessment: 71 y/o male with newly noted diffuse B cell lymphoma and a history of pAF with moderate anemia and signs of CHF. Echocardiogram with normal left ventricular systolic function noted, but elevation in RVSP. Ongoing diuresis. Suspect some degree of the "heart failure" noted is secondary to the accelerated heart rates appreciate in the setting of moderate to severe anemia. Heart rates are controlled today, and normal sinus rhythm has been reestablished. Would continue diuresis as at present (this will likely work more efficiently with both volume (blood) and sinus rhythm). Chief complaint today is constipation ( ongoing work with patient and options today). There was no mention of diastolic function in the echocardiogram. Likely some degree of diastolic dysfunction (which also would contribute to "heart failure" signs/symptoms in the setting normal left ventricular systolic function and atrial fibrillation. Plan: Would proceed with planned chemo today. Would closely monitor weights, labs, and physical examination. Elevation to the H/H (in the acute setting with transfusions) will assist with keeping heart rates and rhythm better controlled (anemia would contribute to the tachycardia, and likely possible return of atrial fibrillation). Patient is not a candidate for anticoagulation given the platelet numbers and likely dysfunction. Cardiology will continue to follow this patient over course of hospital stay. Patient should be seen by cardiology in the outpatient setting (if this is possible).
[2017-02-12] MEDS ORDERED: NS 500 ML IV PRN (10:48)
[2017-02-12] MEDS ORDERED: ACETAMINOPHEN 325 MG TAB PO PRN (10:48)
[2017-02-12] MEDS ORDERED: NS 1,000 ML IV PRN (10:48)
[2017-02-12] MEDS ORDERED: MEPERIDINE 25 MG/ML SYR IVP PRN (10:48)
[2017-02-12] MEDS ORDERED: HYDROCORTISONE 100 MG/2 ML VIAL IVP PRN (10:48)
[2017-02-12] MEDS ORDERED: DEXAMETHASONE 10 MG/ML VIAL IVP PRN (10:48)
[2017-02-12 10:58] LABS: URIC ACID 4.2 mg/dL (3.5-8.5)
[2017-02-12] MEDS ORDERED: ACETAMINOPHEN 325 MG TAB PO ONE (11:30)
[2017-02-12] MEDS ORDERED: RITUXIMAB IV ONE (12:00)
[2017-02-12] MEDS ORDERED: NS IV ONE ×4 (12:00→19:10)
[2017-02-12] MEDS: predniSONE 20 MG TAB PO SCH (17:48)
[2017-02-12] MEDS ORDERED: FOSAPREPITANT 150 MG in NS 250 ML IV ONE (18:00)
[2017-02-12] MEDS ORDERED: DEXAMETHASONE SOD PHOSPHATE IV ONE (18:00)
[2017-02-12] MEDS ORDERED: PALONOSETRON HCL 0.25 MG/5 ML VIAL IVP ONE (18:00)
[2017-02-12 18:23] LABS: ALANINE AMINOTRANSFERASE 29 IU/L (21-72); ALBUMIN 2.8 g/dL (3.5-5.0); ALKALINE PHOSPHATASE 119 IU/L (38-126); ANION GAP 11 mEq/L (8-16); ASPARTATE AMINOTRANSFERASE 21 IU/L (17-59); BILIRUBIN,TOTAL 3.7 mg/dL (0.1-1.4); CALCIUM 7.5 mg/dL (8.5-10.4); CARBON DIOXIDE 22 mEq/l (22-31); CHLORIDE 97 mEq/L (97-110); CREATININE 0.8 mg/dL (0.7-1.3); GLOMERULAR FILTRATION RATE > 60; GLUCOSE 94 mg/dL (70-100); POTASSIUM 3.4 mEq/L (3.5-5.2); SODIUM 130 mEq/L (134-144); TOTAL PROTEIN 4.9 g/dL (6.3-8.2); URIC ACID 4.1 mg/dL (3.5-8.5)
[2017-02-12] MEDS ORDERED: CYCLOPHOSPHAMIDE IV ONE (18:30)
[2017-02-12 18:33] LABS: BILIRUBIN-UNCONJUGATED 2.7 mg/dL (0.0-1.1)
[2017-02-12] MEDS ORDERED: DOXORUBICIN IV ONE (19:00)
[2017-02-12] MEDS ORDERED: VINCRISTINE IV ONE (19:10)
[2017-02-12] MEDS: AMIODARONE HCL 200 MG TAB PO SCH (20:24)
[2017-02-13 06:21] LABS: ADD DIFF? YES; ADD MORPH? NO; FRAGMENT RBC FLAG 0 (0-99); HEMOGLOBIN 7.2 g/dL (13.7-17.5); LEFT SHIFT FLG 50 (0-99); LIPEMIA HEMOLYSIS FLAG 90 (0-99); MEAN CELL HEMOGLOBIN 30.9 pg (27.9-34.1); MEAN CELL HEMOGLOBIN CONCENTR. 34.3 g/dL (32.4-36.7); MEAN CELL VOLUME 90.1 fL (81.5-99.8); MEAN PLATELET VOLUME 11.9 fL (8.7-11.7); PLATELET CLUMPS FLAG 0 (0-99); RED BLOOD CELL COUNT 2.33 10^6/uL (4.40-6.38); RED CELL DISTRIBUTION WIDTH 18.6 % (11.5-15.2)
[2017-02-13 06:24] LABS: ADD SCAN? NO; ATYPICAL LYMPHOCYTE FLAG 260 (0-99)
[2017-02-13 06:25] LABS: PLATELET COUNT 16 10^3/uL (150-400)
[2017-02-13 06:35] LABS: ALANINE AMINOTRANSFERASE 35 IU/L (21-72); ALBUMIN 2.6 g/dL (3.5-5.0); ALKALINE PHOSPHATASE 120 IU/L (38-126); ANION GAP 12 mEq/L (8-16); ASPARTATE AMINOTRANSFERASE 18 IU/L (17-59); BILIRUBIN,TOTAL 2.7 mg/dL (0.1-1.4); BILIRUBIN-CONJUGATED 0.8 mg/dL (0.0-0.5); BILIRUBIN-UNCONJUGATED 1.9 mg/dL (0.0-1.1); CALCIUM 7.6 mg/dL (8.5-10.4); CARBON DIOXIDE 26 mEq/l (22-31); CHLORIDE 97 mEq/L (97-110); CREATININE 0.8 mg/dL (0.7-1.3); GLOMERULAR FILTRATION RATE > 60; GLUCOSE 131 mg/dL (70-100); LACTATE DEHYDROGENASE 1083 IU/L (313-618); POTASSIUM 4.1 mEq/L (3.5-5.2); SODIUM 135 mEq/L (134-144); TOTAL PROTEIN 4.7 g/dL (6.3-8.2); URIC ACID 4.1 mg/dL (3.5-8.5)
[2017-02-13 06:53] LABS: HYPOCHROMIA 1+; MICROCYTES 1+; PLATELET ESTIMATE DECREASED (ADEQ)
[2017-02-13] MEDS: FUROSEMIDE 40 MG/4 ML VIAL IVP SCH (09:33)
[2017-02-13] MEDS: AMIODARONE HCL 200 MG TAB PO SCH ×2 (09:33→20:47)
[2017-02-13] MEDS: ALLOPURINOL 300 MG TAB PO SCH (09:33)
[2017-02-13] MEDS: SENNOSIDES/DOCUSATE SODIUM TAB PO SCH ×2 (09:48→20:46)
--- NOTE | 2017-02-13 10:18 | ASMTCMCOM ---
CM Note CM Note Notes: 02/13/2017 Case Management Note Met w/pt. Pt continues to refuse any supports from Case Management. Pt expresses that home care is unnecessary d/t upcoming weekly appointments with oncology. Feels that PT is unnecessary "just because I'm 71 doesn't mean I'm old". Per pt d/c poc will be independent with follow up as directed by MD. Case Management will continue to follow but does not anticipate pt changing mind on d/c poc. Date Signed: 02/13/2017 10:18 AM Electronically Signed By:Whitney Slulivan RN
--- NOTE | 2017-02-13 10:30 | HOSPPROG ---
Hospitalist Progress Note Assessment/Plan: # DLBCL - R-CHOP cycle1 per onc - follow for TLS; s/p rasburicase, cont allopurinol # a-fib with RVR s/p amiodarone gtt, now NSR - cont amiodarone - no AC with low plts # volume status - +I/O, weight down - cont lasix 40 IV today - will d/w cards regarding an extra dose # R pleural effusion - will attempt to diurese # acute hypoxic resp failure - no home O2; d/t pleural effusion, possibly chronic component # p-htn, RVSP 65mmHg # pancytopenia - d/t lymphoma; follow on chemo; transfuse per onc # vte ppx - hold with low plts Subjective: feels well this am; no CP, no SOB Objective: Vital Signs Temp Pulse Resp BP Pulse Ox 36.6 C 88 29 H 110/69 98 02/13/17 07:27 02/13/17 04:00 02/13/17 07:27 02/13/17 07:27 02/13/17 07:27 Laboratory Results 02/13/17 06:05 02/13/17 06:05 02/12/17 02/13/17 02/14/17 05:59 05:59 05:59 Intake Total 1358 3623 Output Total 750 1415 Balance 608 2208 PT 16.3 SEC (12.0-15.0) H 02/10/17 13:00 INR 1.31 (0.83-1.16) H 02/10/17 13:00 chart reviewed tele reviewed ICD10 Worksheet Patient Problems: Problems Problem Status Onset Acute respiratory failure with hypoxia Acute Edema Acute
--- NOTE | 2017-02-13 10:49 | PDCARPN ---
Cardiology Progress Note Chief Complaint: No complaints were voiced this morning. Chemo therapy was started yesterday Assessment/Plan: Assessment: 02-13-17 No new cardiovascular events overnight. Patient has remained in normal sinus rhythm. Chemotherapy was started yesterday. Heme/Onc to follow this patient closely. Weights are down 1.5 kg today 02-12-17 Patient is a 71 y/o male with history of pAF (does not appear to be significant issues in the recent past) and newly diagnosed diffuse B cell lymphoma (with close Heme/Onc following and plans to start chemotherapy today), with request for cardiology input given episode of atrial fibrillation with rapid ventricular response. Over the weekend, trial with IV CCB was started, but given the anemia noted, this compromised the patient's blood pressure, and curbside with cardiology resulted in switch to Amiodarone. About 4 am this morning, the patient converted to normal sinus rhythm, and reportedly remained with this rhythm. No cardiovascular complaints have been noted today - if anything, the patient's chief complaint is constipation. No chest pains or pressure, no PND or orthopnea. No fevers, chills, nausea today. Echocardiogram (as below) with grossly normal left ventricular systolic function. Weights are up today in comparison to admission weight, and patient continues to have edema on physical examination today. Suspect some degree of third spacing, which may improve with reestablishment of normal sinus rhythm and treatment of the degree of anemia noted. Plan: (1) Would arrange for patient to be seen by cardiology in the outpatient setting in 4-6 weeks (also contingent on counts) (2) Would also ensure that the patient is seen in the morning clinic (8:30-9) to minimize exposure to other patient's ailments. (3) Continue therapy for the time being on Amiodarone (200 mg twice per day) (4) Maintain diuresis with close following to electrolytes and weights Subjective: No cardiovascular complaints were voiced today. Reviewed/Discussed With: hospitalist, multidisciplinary team Objective: Vital Signs (8 Hrs) Temp Pulse Resp BP Pulse Ox 02/13/17 07:27 36.6 C 29 H 110/69 98 02/13/17 04:00 36.7 C 88 16 132/78 H 91 L Intake/Output (24 Hrs) 02/12/17 02/13/17 02/14/17 05:59 05:59 05:59 Intake Total 1358 3623 Output Total 750 1415 Balance 608 2208 Intake: Oral (ml) 800 2200 IV Infused (ml) 558 1423 Amiodarone HCl 540 mg In 558 D5w 300 ml @ 16.667 mls/ hr IV ONCE ONE Rx#: [id number] Cyclophosphamide 1,550 mg 349 In Ns 272 ml @ 699 mls/ hr IV ONCE@1830 ONE Rx#: [id number] DOXOrubicin 25.8 mg In 12 Bag 0 ml @ 77.4 mls/hr IV ONCE@1900 ONE Rx#: [id number] Dexamethasone Sod 55 Phosphate 20 mg In Ns 50 ml @ 220 mls/hr IV ONCE@ 1800 ONE Rx#:[id number] Fosaprepitant 150 mg In 250 Ns 250 ml @ 500 mls/hr IV ONCE@1800 ONE Rx#: [id number] riTUXimab 775 mg In Ns 697 697.5 ml @ Per Protocol IV ONCE@1200 ONE Rx#: [id number] vinCRIStine 1 mg In Ns 59 60 ml @ 360 mls/hr IV ONCE@ 1910 ONE Rx#:[id number] Output: Urine (ml) 750 1415 Bedside Commode 250 Toilet 375 Urinal 375 1165 Other: Weight 89 kg 87.5 kg Intake Quantity Yes Yes Sufficient Number of Voids Toilet 1 Urinal 1 3 Number of Stools Bedside Commode 1 1 Toilet 1 Post Void Residual Scan Volume (ml) Toilet 300 Result Diagrams: 02/13/17 06:05 02/13/17 06:05 Cardiac Labs: Cardiac Lab Results (72 Hrs) 02/12/17 02/11/17 02/11/17 06:20 13:00 03:45 Troponin I < 0.012 < 0.012 < 0.012 Telemetry: normal sinus rhythm - Physical Exam Constitutional: WDWN, healthy appearing, no apparent distress Eyes: PERRL Ears, Nose, Mouth, Throat: moist mucous membranes Cardiovascular: regular rate and rhythm, no murmurs Peripheral Pulses: 2+: dorsalis-pedis (R), dorsalis-pedis (L) Respiratory: clear to auscultate bilat Gastrointestinal: normoactive bowel sounds Skin: other (edema to bilateral lower extremities) Musculoskeletal: no muscular tenderness Neurologic: AAOx3, CN II-XII grossly intact Psychiatric: cooperative, interactive, following commands ICD10 Worksheet Patient Problems: Problems Problem Status Onset Acute respiratory failure with hypoxia Acute Edema Acute
[2017-02-13] MEDS ORDERED: FUROSEMIDE 40 MG/4 ML VIAL IVP ONE (14:00)
--- NOTE | 2017-02-13 15:31 | SOAPPROG ---
SOAP Progress Note Assessment/Plan: Assessment: 1) Diffuse large b cell lymphoma 2) Pancytopenia secondary to marrow involvement from #1 3) A -fib 4) Transaminitis secondary to #1 5) Bilateral pleural effusions Plan: Patient now in sinus rhythm. He will continue on Amiodarone per cardiology. He received his first dose of R-CHOP yesterday 02/12. He tolerated this well. No evidence of tumor lysis thus far. Will continue Allopurinol. Chemotherapy doses were reduced for hepatic transaminitis. His LFT's are better today. G-CSF has been started. His anemia is minimally symptomatic. His platelets are stable, and there is no bleeding. Will hold off on transfusion of blood products today. His low counts are related to marrow involvement from his lymphoma, and should improve over time. He may be able to be discharged in 1 - 2 days. His questions were answered. 02/12/17 09:06 02/13/17 15:26 Subjective: Received cycle #1 RCHOP yesterday. Denies N/V. Feels well. at bedside. Objective: Vital Signs Temp Pulse Resp BP Pulse Ox 36.6 C 80 29 H 100/75 91 L 02/13/17 07:27 02/13/17 11:50 02/13/17 07:27 02/13/17 11:50 02/13/17 11:50 Laboratory Results 02/13/17 06:05 02/13/17 06:05 02/12/17 02/13/17 02/14/17 05:59 05:59 05:59 Intake Total 1358 3623 440 Output Total 750 1415 Balance 608 2208 440 PT 16.3 SEC (12.0-15.0) H 02/10/17 13:00 INR 1.31 (0.83-1.16) H 02/10/17 13:00 - Time Spent With Patient Time Spent With Patient: 25 minutes Physical Exam - Physical Exam General Appearance: alert EENT: PERRL/EOMI Respiratory: lungs clear Cardiac/Chest: regular rate, rhythm Abdomen: non-tender, soft Extremities: other (2 plus edema bilateral LE) Neuro/Psych: alert, normal mood/affect ICD10 Worksheet Patient Problems: Problems Problem Status Onset Acute respiratory failure with hypoxia Acute Edema Acute
[2017-02-13] MEDS: predniSONE 20 MG TAB PO SCH (17:16)
[2017-02-13] MEDS ORDERED: FILGRASTIM-SNDZ 480 MCG/0.8 ML SYR SC SCH ×2 (20:00→22:30)
[2017-02-14 06:02] LABS: % IMMATURE GRANULYOCYTES 2.8 % (0.0-1.1); ABSOLUTE IMMATURE GRANULOCYTES 0.11 10^3/uL (0.00-0.10); ADD DIFF? NO; ADD MORPH? YES; ADD SCAN? YES; ATYPICAL LYMPHOCYTE FLAG 0 (0-99); FRAGMENT RBC FLAG 0 (0-99); HEMATOCRIT 18.2 % (40.0-51.0); LEFT SHIFT FLG 20 (0-99); LIPEMIA HEMOLYSIS FLAG 90 (0-99); MEAN CELL HEMOGLOBIN 30.8 pg (27.9-34.1); MEAN CELL HEMOGLOBIN CONCENTR. 34.1 g/dL (32.4-36.7); MEAN CELL VOLUME 90.5 fL (81.5-99.8); MEAN PLATELET VOLUME 13.3 fL (8.7-11.7); PLATELET CLUMPS FLAG 10 (0-99); RED BLOOD CELL COUNT 2.01 10^6/uL (4.40-6.38); RED CELL DISTRIBUTION WIDTH 17.8 % (11.5-15.2)
[2017-02-14 06:08] LABS: HEMOGLOBIN 6.2 g/dL (13.7-17.5)
[2017-02-14 06:09] LABS: PLATELET COUNT 16 10^3/uL (150-400)
[2017-02-14 06:12] LABS: ALANINE AMINOTRANSFERASE 38 IU/L (21-72); ALBUMIN 2.5 g/dL (3.5-5.0); ALKALINE PHOSPHATASE 85 IU/L (38-126); ANION GAP 8 mEq/L (8-16); ASPARTATE AMINOTRANSFERASE 16 IU/L (17-59); BILIRUBIN,TOTAL 2.2 mg/dL (0.1-1.4); CALCIUM 6.8 mg/dL (8.5-10.4); CARBON DIOXIDE 25 mEq/l (22-31); CHLORIDE 100 mEq/L (97-110); CREATININE 0.8 mg/dL (0.7-1.3); GLOMERULAR FILTRATION RATE > 60; GLUCOSE 134 mg/dL (70-100); POTASSIUM 3.6 mEq/L (3.5-5.2); SODIUM 133 mEq/L (134-144); TOTAL PROTEIN 4.5 g/dL (6.3-8.2); URIC ACID 4.7 mg/dL (3.5-8.5)
[2017-02-14 06:18] LABS: BILIRUBIN-CONJUGATED 0.7 mg/dL (0.0-0.5); BILIRUBIN-UNCONJUGATED 1.5 mg/dL (0.0-1.1)
[2017-02-14 06:40] LABS: SCAN POSITIVE
[2017-02-14 06:46] LABS: HYPOCHROMIA 1+
[2017-02-14 06:47] LABS: PLATELET ESTIMATE DECREASED (ADEQ)
[2017-02-14] MEDS: FUROSEMIDE 40 MG/4 ML VIAL IVP SCH (08:03)
[2017-02-14] MEDS: AMIODARONE HCL 200 MG TAB PO SCH (08:03)
[2017-02-14] MEDS: ALLOPURINOL 300 MG TAB PO SCH (08:03)
[2017-02-14] MEDS: SENNOSIDES/DOCUSATE SODIUM TAB PO SCH (11:07)
--- NOTE | 2017-02-14 11:50 | ASMTCMCOM ---
CM Note CM Note Notes: Met w/pt and . They continue to say they do not feel they need an type of HHC services. Pt seems to have very good support of and daughters and says he cannot be homebound. Therefore he will dc home with help of family. He had questions about reinstating [facility]- financial counseling notified and they will see pt. Date Signed: 02/14/2017 11:50 AM Electronically Signed By:Ruthie Kyle RN
[2017-02-14 13:08] VITALS: O2SAT 93
--- NOTE | 2017-02-14 13:43 | SOAPPROG ---
SOAP Progress Note Assessment/Plan: Assessment: 1) Diffuse large b cell lymphoma 2) Pancytopenia secondary to marrow involvement from #1 3) A -fib 4) Transaminitis secondary to #1 5) Bilateral pleural effusions Plan: Patient now in sinus rhythm. He will continue on Amiodarone per cardiology. He received his first dose of R-CHOP on 02/12. He tolerated this well. No evidence of tumor lysis. Will continue Allopurinol. Chemotherapy doses were reduced for hepatic transaminitis. His LFT's are improving. G-CSF has been started. He will need an additional three days of Zarxio (GCSF). His anemia is worse today. He is receiving 2 units PRBC's. He signed a transfusion consent earlier this hospital stay. His low counts are related to marrow involvement from his lymphoma, and should improve over time. He wants to go home today. I think discharge is appropriate. He does not have prescription drug coverage. If he goes home today he will need to be given 3 Zarxio 480 mg syringes and taught to administer the SC dose. He will need to do this for 3 days. Case management involved and working on this. He will need to go home on: Allopurinol 300 mg daily x 3 days Acyclovir 400 mg BID. Will arranges for outpatient follow up at [facility] on Sunday. He is instructed to call the office or ring conductor MD with any new symptoms. His questions were answered. Case d/w Dr. Cohen. Subjective: Feels well. Receiving PRBC transfusion. He wants to go home. Denies nausea Objective: Vital Signs Temp Pulse Resp BP Pulse Ox 36.8 C 77 18 110/60 93 02/14/17 13:07 02/14/17 13:07 02/14/17 13:07 02/14/17 13:07 02/14/17 13:07 Laboratory Results 02/14/17 05:45 02/14/17 05:45 02/13/17 02/14/17 02/15/17 05:59 05:59 05:59 Intake Total 3623 2340 Output Total 1415 Balance 2208 2340 PT 16.3 SEC (12.0-15.0) H 02/10/17 13:00 INR 1.31 (0.83-1.16) H 02/10/17 13:00 - Time Spent With Patient Time Spent With Patient: 30 minutes Physical Exam - Physical Exam General Appearance: alert, no apparent distress EENT: PERRL/EOMI Respiratory: lungs clear Cardiac/Chest: regular rate, rhythm Abdomen: non-tender, soft Extremities: other (2 plus edema both LE. No calf tenderness bilaterally) Neuro/Psych: normal mood/affect ICD10 Worksheet Patient Problems: Problems Problem Status Onset Acute respiratory failure with hypoxia Acute Edema Acute
[2017-02-14 16:24] VITALS: BP 108/60; PULSE 79; RESP 16; TEMP 97.7
--- NOTE | 2017-02-14 17:40 | ASMTCMCOM ---
CM Note CM Note Notes: Pt will dc home this evening with family. He will come back to onc inf ctr for Zarxio injections tomorrow, sunday and sunday. D/W Dr maynard. also d/w Latricia Connor and Aylin Blanca regarding insurance details. Pt in agreement w/dc poc and he will dc w/help of his family. Date Signed: 02/14/2017 05:40 PM Electronically Signed By:Ruthie Kyle RN
[2017-02-14] MEDS: predniSONE 20 MG TAB PO SCH (18:25)
--- NOTE | 2017-02-14 20:19 | GDS ---
[f rep st] DISCHARGE SUMMARY DIAGNOSES: 1. Diffuse B cell lymphoma admitted for chemotherapy. 2. Atrial fibrillation with rapid ventricular response. 3. Hypervolemia. 4. Right-sided pleural effusion. 5. Pancytopenia. 6. Acute hypoxic respiratory failure. 7. Pulmonary hypertension. CONSULTATIONS: 1. Cardiology. 2. Oncology. PERTINENT STUDIES: 1. #1 echocardiogram showing RVSP of 65, EF of 70%-75% with no wall motion abnormalities. 2. Lower extremity ultrasound showing no DVT. This is bilateral. HOSPITAL COURSE: This is a 71-year-old man who was admitted for chemotherapy. 1. Diffuse large B-cell lymphoma: He is status post R-CHOP cycle 1. He had no evidence of tumor ly sis syndrome. He overall seemed to tolerate his chemotherapy fairly well. 2. Atrial fibrillation with RVR: This complicated his course. He was initially placed on a diltiaz em drip. However he was borderline hypotensive, thus was transitioned to amiodarone. This converted him to normal sinus rhythm. He was followed by Cardiology. Recommended oral amiodarone for rhythm control. He will get 200 mg p.o. twice daily. He should follow up in Cardiology Clinic. He has bee n given Dr. García's contact information. 3. Pancytopenia: He has required if a total of 5 units of packed red blood cells. He has also requ ired 1 unit of platelets. On the day of discharge, his hemoglobin is 6.2, but this is before he has received his final 2 units. His platelets are 16. He has no evidence of bleeding. 4. Volume status: He is volume overloaded with significant lower extremity edema. He has been diur esed aggressively here. He will be discharged on 40 of Lasix daily. We will cautiously add in 10 mE q of potassium, which I think is appropriate. We were initially concerned about tumor lysis syndrome however. His LDH peaked at 1000. His potassium has actually been trending down. On this dose of L asix I think this is appropriate. He should follow up shortly with Oncology for labs. I believe thi s is planned for the end of the week. 5. I have set him up to receive outpatient infusions of his G-CSF. His Medicare does not have drug coverage. This has been mapped by the hospital. 6. He has received prescriptions for allopurinol as well as acyclovir given his chemotherapy. BILLING: I spent more than 30 minutes on the day of discharge coordinating care. /[id number]/MODL
[2017-02-14] MEDS ORDERED: FILGRASTIM-SNDZ 480 MCG/0.8 ML SYR SC SCH (21:00)
--- NOTE | 2017-02-15 17:11 | ASDISCHSUM ---
Discharge Information Plan Status:Home with No Needs Medically Cleared to Leave: Discharge Date:02/14/2017 07:52 PM CM D/C Disposition:Home, Routine, Self-Care ADT D/C Disposition:Home, Routine, Self-Care Projected Discharge Date:02/14/2017 07:52 PM Transportation at D/C: Discharge Delay Reason: Follow-Up Date:02/14/2017 07:52 PM Discharge Slot: Final Diagnosis: Placement Information Patient Contact Information Contact Name:BARBARA Relationship: Address:[address] Work Phone: City:[place] Phone: [facility]/Zip Code:[place] [address] Email: Financial Information Financial Class: Primary Plan Desc:MEDICARE INPATIENT Primary Plan Number:[id number] Secondary Plan Desc: Secondary Plan Number: Assessment Information [facility] CM Progress Note CM Note CM Note Notes: Pt with new dx of diffuse B-cell lymphoma admitted for start of chemo. It is unclear what pt's needs will be at [place]. C/M will follow. Date Signed: 02/09/2017 03:59 PM Electronically Signed By:Lynette Mueller LCSW [facility] CM Progress Note CM Note CM Note Notes: 02/11/2017 Case Management Note Met w/ pt and [facility] ([phone]) to discuss PT recommendation for SNF rehab. Provided details on Home Care vs SNF rehab. After discussion, pt requested time to think about it. Case Management will meet w/pt tomorrow to discuss preferred options. Case Management to follow. Date Signed: 02/11/2017 03:53 PM Electronically Signed By:Whitney Sullivan RN [facility] CM Progress Note CM Note CM Note Notes: 02/13/2017 Case Management Note Met w/pt. Pt continues to refuse any supports from Case Management. Pt expresses that home care is unnecessary d/t upcoming weekly appointments with oncology. Feels that PT is unnecessary "just because I'm 71 doesn't mean I'm old". Per pt d/c poc will be independent with follow up as directed by . Case Management will continue to follow but does not anticipate pt changing mind on d/c poc. Date Signed: 02/13/2017 10:18 AM Electronically Signed By:Whitney Sullivan RN [facility] CM Progress Note CM Note CM Note Notes: Met w/pt and . They continue to say they do not feel they need an type of HHC services. Pt seems to have very good support of and daughters and says he cannot be homebound. Therefore he will dc home with help of family. He had questions about reinstating [facility]- financial counseling notified and they will see pt. Date Signed: 02/14/2017 11:50 AM Electronically Signed By:Ruthie Kyle RN [facility] CM Progress Note CM Note CM Note Notes: Pt will dc home this evening with family. He will come back to onc inf ctr for Zarxio injections tomorrow, sunday and sunday. D/W Dr maynard. also d/w Latricia Connor and Aylin Blanca regarding insurance details. Pt in agreement w/dc poc and he will dc w/help of his family. Date Signed: 02/14/2017 05:40 PM Electronically Signed By:Ruthie Kyle RN Intervention Information
== END 2017-02-14 19:52 | disposition home or self-care (01) | DRG 846 ==
LOC: F1N 10:22 → F2W 02-10 20:25 → F1N 02-13 12:58
PROVIDERS: ADMIT Hospitalist; ATTEND Student in an Organized Health Care Education/Training Program
PROC: 30243N1 Transfusion of Nonautologous Red Blood Cells into Central Vein, Percutaneous Approach (ICD-10-PCS; principal; 2017-02-09)
PROC: 07DR3ZX Extraction of Iliac Bone Marrow, Percutaneous Approach, Diagnostic (ICD-10-PCS; 2017-02-09)
PROC: 3E04005 Introduction of Other Antineoplastic into Central Vein, Open Approach (ICD-10-PCS; 2017-02-10)
PROC: 30243R1 Transfusion of Nonautologous Platelets into Central Vein, Percutaneous Approach (ICD-10-PCS; 2017-02-11)
DX: Z51.11 Encounter for antineoplastic chemotherapy (principal); C83.30 Diffuse large B-cell lymphoma, unspecified site; J96.01 Acute respiratory failure with hypoxia; J90 Pleural effusion, not elsewhere classified; D61.818 Other pancytopenia; I48.0 Paroxysmal atrial fibrillation; E87.70 Fluid overload, unspecified; D63.0 Anemia in neoplastic disease; I27.20 Pulmonary hypertension, unspecified; I10 Essential (primary) hypertension
CPT/HCPCS: 97116-GP; 97161-GP; 97165-GO; 97535-GO; G0472; G8978-GP-CK; G8979-GP-CI; G8987-GO-CJ; G8988-GO-CI; G8989-GO-CJ; J0282; J1100; J1200; J1453; J1642; J1940; J2405; J2469; J2783; J9000; J9070; J9310; J9370; P9016; P9035; Q5101-ZA

== ENCOUNTER 2017-02-15 10:16 | Outpatient (CLI) | payer OTHER ==
[~2017-02-15 10:16] MED LIST: ACETAMINOPHEN 325 MG TAB PO PRN; ALTEPLASE 2 MG VIAL IVP PRN; ONDANSETRON 4 MG/2 ML VIAL IVP PRN
[2017-02-15 10:34] VITALS: BP 120/73; PULSE 65; RESP 16; O2SAT 94
[2017-02-15 10:36] VITALS: TEMP 97.9
[2017-02-15] MEDS ORDERED: FILGRASTIM-SNDZ 480 MCG/0.8 ML SYR SC SCH ×2 (14:00)
== END 2017-02-15 12:55 | disposition home or self-care (01) ==
LOC: F1NOP 10:16
PROVIDERS: ATTEND Student in an Organized Health Care Education/Training Program
DX: C85.90 Non-Hodgkin lymphoma, unspecified, unspecified site (principal)
CPT/HCPCS: Q5101-ZA

== ENCOUNTER 2017-02-16 11:24 | Outpatient (CLI) | payer OTHER ==
[~2017-02-16 11:24] MED LIST changes: +FILGRASTIM-SNDZ 480 MCG/0.8 ML SYR SC SCH
[2017-02-16] MEDS ORDERED: FILGRASTIM-SNDZ 480 MCG/0.8 ML SYR SC SCH (11:35)
[2017-02-16 12:11] VITALS: BP 123/72; PULSE 66; RESP 18; TEMP 97.9; O2SAT 94
== END 2017-02-16 12:40 | disposition home or self-care (01) ==
LOC: F1NOP 11:24
PROVIDERS: ATTEND Student in an Organized Health Care Education/Training Program
DX: C85.90 Non-Hodgkin lymphoma, unspecified, unspecified site (principal)
CPT/HCPCS: Q5101-ZA

== ENCOUNTER 2017-03-03 10:01 | Outpatient (CLI) | payer SELFPAY ==
[2017-03-03] MEDS ORDERED: diphenhydrAMINE 25 MG CAP PO ONE (10:15)
[2017-03-03] MEDS ORDERED: ACETAMINOPHEN 325 MG TAB PO ONE (10:15)
== END 2017-03-03 16:31 | disposition home or self-care (01) ==
LOC: FOBOP 10:01
PROVIDERS: ATTEND Internal Medicine Hematology & Oncology
PROC: 30233N1 Transfusion of Nonautologous Red Blood Cells into Peripheral Vein, Percutaneous Approach (ICD-10-PCS; principal; 2017-03-03)
DX: C85.90 Non-Hodgkin lymphoma, unspecified, unspecified site (principal)
CPT/HCPCS: J1642; P9016

== ENCOUNTER 2017-03-14 07:54 | Inpatient (IN) | payer OTHER ==
[2017-03-14] MEDS ORDERED: MEPERIDINE 25 MG/ML SYR IVP PRN (08:49)
[2017-03-14] MEDS ORDERED: NS 500 ML IV PRN (08:49)
[2017-03-14] MEDS ORDERED: NS 1,000 ML IV PRN (08:49)
[2017-03-14] MEDS ORDERED: ACETAMINOPHEN 325 MG TAB PO PRN (08:49)
[2017-03-14] MEDS ORDERED: HYDROCORTISONE 100 MG/2 ML VIAL IVP PRN (08:49)
[2017-03-14] MEDS ORDERED: DEXAMETHASONE 10 MG/ML VIAL IVP PRN (08:49)
[2017-03-14] MEDS ORDERED: ACETAMINOPHEN 325 MG TAB PO ONE (09:00)
[2017-03-14] MEDS ORDERED: RITUXIMAB IV ONE (09:30)
[2017-03-14] MEDS ORDERED: NS IV ONE ×2 (09:30→13:30)
[2017-03-14] MEDS ORDERED: PALONOSETRON HCL 0.25 MG/5 ML VIAL IVP ONE (13:00)
[2017-03-14] MEDS: predniSONE 20 MG TAB PO SCH (13:21)
[2017-03-14] MEDS ORDERED: CYCLOPHOSPHAMIDE IV ONE (13:30)
[2017-03-14] MEDS ORDERED: DOXORUBICIN IV ONE ×2 (14:00)
[2017-03-14] MEDS ORDERED: vinCRIStine 2 MG in NS 59 ML IV ONE (14:10)
--- NOTE | 2017-03-14 14:50 | GCON ---
[f rep st] CONSULTATION ONCOLOGY CONSULT PRIMARY ONCOLOGIST: Diane Villagomez MD. REASON FOR CONSULTATION: Evaluation and management of diffuse large B-cell lymphoma. HISTORY OF PRESENT ILLNESS: The patient is a 72-year-old gentleman, who was diagnosed with a stage IVB diffuse large B-cell lymphoma just over a month ago. He had weight loss, fatigue, night sweats, and significant cytopenias. His bone marrow is involved. He received his first dose of rituximab plus CHOP almost 4 weeks ago. His doses had to be reduced due to abnormal liver function tests. His course was complicated by cytopenias, but did not require platelet transfusions. He was on antibiotics and growth factor, and did not develop any problems with infections. He has significantly improved since starting chemotherapy, with most of the symptoms resolving. He also had significant edema and anasarca with a normal ejection fraction on echocardiogram. He had been on Lasix and has lost over 20 pounds, and the swelling is nearly resolved. He has not taken the Lasix over the last several days. On the tumor itself, it was CD 20 positive, BCL 6 positive, CD 10 positive, PAX5 positive, CD30 negative. I believe C myc is pending. ALLERGIES: He has no known drug allergies. HOME MEDICATIONS: Included potassium, multivitamin, amiodarone, and acyclovir, and he was on Lasix and he was on allopurinol, but that was stopped. CHRONIC ILLNESSES: Included: 1. Nonmelanoma skin cancers involving his scalp. 2. Lymphoma as described above. 3. Atrial fibrillation when he was in the hospital last time. SURGICAL HISTORY: Unremarkable. SOCIAL HISTORY: Nonsmoker. He works in [employer] and has about 20 alcoholic drinks per week, although not much appetite for it at this time. FAMILY HISTORY: Negative for malignancy. REVIEW OF SYSTEMS: 10-point review of systems performed. Pertinent positives HPI, otherwise negative. PHYSICAL EXAM: VITAL SIGNS: Temp is 37.4, pulse is 81, blood pressure is 116/ 59. GENERAL: He is mildly pale, but no distress. HEENT: Sclerae nonicteric. Oral mucosa is unremarkable. LUNGS: Clear. CARDIAC: Regular with 1 to 2+ edema lower extremities bilaterally. ABDOMEN: Soft, nontender, without hepatosplenomegaly. NODES: He has very small palpable lymph nodes in the axilla, which is much improved since presentation. LABS: Yesterday his white count was 3700 with an ANC of about 1100, monocytes are 900. Hemoglobin was 7.8 g/dL, platelet count was 86,000, which was much improved. Chemistries yesterday: Potassium was normal at 4.6. Creatinine was normal at 0.8. Bilirubin is now normal at 1.2. AST and ALT and alk phos are all normal. LDH is now normal. Albumin is a little low but improved at 3.2. He was down to 2.4 at one time. Last uric acid was 4.4, off allopurinol. Hepatitis testing was negative, and bone marrow results were as per HPI. IMPRESSION: 1. Stage IVB diffuse large B-cell lymphoma. 2. Fluid overload, now resolving. 3. Cytopenia secondary to malignancy and recent chemotherapy. 4. Recent history of atrial fibrillation during presentation of the cancer and treatment. He is doing much better since starting chemotherapy, and he is clinically stable to go onto the 2nd cycle. We are still having some insurance issues, so to help pay for the treatment we are admitting him to the hospital. He is also complex with his cardiac issues and low blood counts. He will need growth factor support, which we are working on helping him. He will need to stay at least 2 midnights for close monitoring, and we may ask Cardiology to see if he should remain on amiodarone. I have recommended staying off Lasix for now, and using as needed for edema. Along with that, he can stay off the potassium and use it only when he is taking the Lasix. Once he is clinically stable and ready to go home, we will follow him up closely in outpatient. My plan is to get a CT scan before the 3rd cycle, but that will be for another 2-1/2 to 3 weeks. /[id number]/MODL MTDD
[2017-03-14] MEDS ORDERED: oxyCODONE IR 5 MG TAB PO PRN (15:14)
--- NOTE | 2017-03-14 15:47 | ASMTCMCOM ---
CM Note CM Note Notes: Pt admitted for second round of chemo for lymphoma. Pt continues to have insurance problems. He is hoping to get on [place]are Part B and D starting April. He is also applying for medicaid. Pt denied any other needs. Both and his state he is doing fine. He continues to work. Date Signed: 03/14/2017 03:46 PM Electronically Signed By:Lynette Mueller LCSW
[2017-03-14] MEDS ORDERED: FUROSEMIDE 20 MG/2 ML VIAL IVP ONE (16:03)
--- NOTE | 2017-03-14 16:10 | PDGENHP ---
History and Physical - Chief Complaint induction of chemo, fluid overload - History of Present Illness We have been asked by Oncology to directly admit this patient with hx of diffuse large b cell lymphoma and cytopenia related to chemotherapy for induction of 2nd cycle of chemotherapy and for slight fluid overload. He is a 72 yo male who was diagnosed with stage IV B cell lymphoma with BM involvement one month ago. He was started on Rituximab plus CHOP and developed significant cytopenia. He had further complication with Afib and volume overload. His volume overload is significantly improved and he stopped Lasix about 2 weeks ago but has started to develop some LE edema. He continues on Amiodarone but is in SR. He denies CP, SOB, palpitations, N/V, focal weakness PMHx: Afib, skin cancer, lymphoma SocHx: previous ETOH use, none currently, FmHx: no hx of malignancy History Information - Allergies/Home Medication List Allergies/Adverse Reactions: No Known Allergies Allergy (Unverified 11/23/12 10:52) Home Medications: Multivitamins [Multivitamin (*)] 1 each PO DAILY 03/14/17 [Last Taken Unknown] I have personally reviewed and updated: medical history, social history - Past Medical History atrial fibrillation - Surgical History Reports: no pertinent surgical hx - Family History Positive for: non-pertinent - Social History Smoking Status: Never smoked Review of Systems Review of Systems: ROS: 10pt was reviewed & negative except for what was stated in HPI & below Physical Exam Physical Exam: Temp Pulse Resp BP Pulse Ox 37.1 C 74 14 109/63 93 03/14/17 15:37 03/14/17 15:37 03/14/17 15:37 03/14/17 15:37 03/14/17 15:37 Constitutional: no apparent distress, chronically ill appearing Eyes: PERRL Ears, Nose, Mouth, Throat: moist mucous membranes, hearing normal, ears appear normal Cardiovascular: regular rate and rhythym, edema (1+ bilateral) Respiratory: no respiratory distress, no rales or rhonchi, clear to auscultation Gastrointestinal: normoactive bowel sounds, soft, non-tender abdomen Genitourinary: no bladder fullness Skin: warm Neurologic: AAOx3 Psychiatric: interacting appropriately, not anxious, not encephalopathic Assessment & Plan Assessment: #Stage IV B Cell Lymphoma #Pedal edema #Hx of Afib, on Amiodarone #Anemia, likely malignancy and chemotherapy related Plan: Chemo and growth factor per Oncology Monitor labs closely, transfuse PRN Cont Amiodarone, consider Cards consult Lasix IV x one today, determine clinical response Cont home acyclovir Lovenox for DVT proph DNR
[2017-03-14] MEDS: AMIODARONE HCL 200 MG TAB PO SCH (21:51)
[2017-03-14] MEDS: ACYCLOVIR 400 MG TAB PO SCH (21:51)
[2017-03-15 05:06] LABS: % IMMATURE GRANULYOCYTES 1.9 % (0.0-1.1); ABSOLUTE IMMATURE GRANULOCYTES 0.05 10^3/uL (0.00-0.10); ADD DIFF? NO; ADD MORPH? YES; ADD SCAN? NO; ATYPICAL LYMPHOCYTE FLAG 0 (0-99); FRAGMENT RBC FLAG 0 (0-99); HEMATOCRIT 18.7 % (40.0-51.0); LEFT SHIFT FLG 10 (0-99); LIPEMIA HEMOLYSIS FLAG 90 (0-99); MEAN CELL HEMOGLOBIN CONCENTR. 34.8 g/dL (32.4-36.7); MEAN CELL VOLUME 92.1 fL (81.5-99.8); MEAN PLATELET VOLUME 10.1 fL (8.7-11.7); PLATELET CLUMPS FLAG 50 (0-99); PLATELET COUNT 65 10^3/uL (150-400); RED BLOOD CELL COUNT 2.03 10^6/uL (4.40-6.38)
[2017-03-15 05:07] LABS: HEMOGLOBIN 6.5 g/dL (13.7-17.5); RED CELL DISTRIBUTION WIDTH 20.1 % (11.5-15.2)
[2017-03-15 05:25] LABS: ANION GAP 8 mEq/L (8-16); CALCIUM 7.6 mg/dL (8.5-10.4); CARBON DIOXIDE 24 mEq/l (22-31); CHLORIDE 105 mEq/L (97-110); CREATININE 0.7 mg/dL (0.7-1.3); GLOMERULAR FILTRATION RATE > 60; GLUCOSE 103 mg/dL (70-100); MAGNESIUM 1.9 mg/dL (1.6-2.3); POTASSIUM 4.1 mEq/L (3.5-5.2); SODIUM 137 mEq/L (134-144)
[2017-03-15 05:30] LABS: MACROCYTES 2+; MICROCYTES 2+; PLATELET ESTIMATE DECREASED (ADEQ)
[2017-03-15] MEDS: AMIODARONE HCL 200 MG TAB PO SCH ×2 (08:07→20:50)
[2017-03-15] MEDS: ENOXAPARIN 40 MG/0.4 ML SYR SC SCH (08:07)
[2017-03-15] MEDS: ACYCLOVIR 400 MG TAB PO SCH ×2 (08:07→20:50)
[2017-03-15] MEDS: MULTIVITAMINS 1 EACH TAB PO SCH (08:07)
[2017-03-15] MEDS ORDERED: FUROSEMIDE 20 MG/2 ML VIAL IVP ONE (10:26)
--- NOTE | 2017-03-15 10:32 | HOSPPROG ---
Hospitalist Progress Note Assessment/Plan: #Stage IV B Cell Lymphoma #Pedal edema #Hx of Afib, on Amiodarone #Acute on chronic Anemia, likely malignancy and chemotherapy related #Pancytopenia, chemotherapy induced Plan: Transfuse 2 units PRBC today. Lasix in between Chemo and growth factor per Oncology Cont Amiodarone Cont home acyclovir Lovenox for DVT proph DNR Care D/W Dr. Villagomez Cont inpatient Subjective: Hgb is down. WBC down. Platelets down. No CP or SOB. NO N/V. Denies pain Objective: Vital Signs Temp Pulse Resp BP Pulse Ox 36.6 C 83 18 131/71 H 97 03/15/17 08:00 03/15/17 08:00 03/15/17 08:00 03/15/17 08:00 03/15/17 08:00 Laboratory Results 03/15/17 05:00 03/15/17 05:00 03/14/17 03/15/17 03/16/17 05:59 05:59 05:59 Intake Total 2234.5 Balance 2234.5 - Physical Exam Constitutional: chronically ill appearing Eyes: PERRL, EOMI Ears, Nose, Mouth, Throat: moist mucous membranes, hearing normal Cardiovascular: regular rate and rhythym, edema Respiratory: no respiratory distress, no rales or rhonchi, clear to auscultation Gastrointestinal: normoactive bowel sounds, soft, non-tender abdomen Skin: warm Neurologic: AAOx3 Psychiatric: interacting appropriately, not anxious, not encephalopathic ICD10 Worksheet Patient Problems: Problems Problem Status Onset Acute respiratory failure with hypoxia Acute Edema Acute
--- NOTE | 2017-03-15 11:51 | SOAPPROG ---
SOAP Progress Note Assessment/Plan: E&M for DLBC NHL * DLBC NHL stage IVB: Day 2 Cycle 1 R-CHOP; had full doses this time. Has bone marrow involvement and had grade 4 neutropenia so need growth factor support. Treatment is for curative. Had excellent clinic response to cycle 1. Continue prednisone for total of 5 days. Filgastrim starts today and daily for 7 days. * Anemia: recommend transfusion today * Fluid retention: much better since starting chemotherapy. Will use Lasix prn. Pretreatment ECHO was normal. Subjective: Tolerated chemotherapy very well. Fatigue but no chest pain or dyspnea. No night sweats. Objective: Vital Signs Temp Pulse Resp BP Pulse Ox 36.6 C 83 18 131/71 H 97 03/15/17 08:00 03/15/17 08:00 03/15/17 08:00 03/15/17 08:00 03/15/17 08:00 Laboratory Results 03/15/17 05:00 03/15/17 05:00 03/14/17 03/15/17 03/16/17 05:59 05:59 05:59 Intake Total 2234.5 Balance 2234.5 Physical Exam - Physical Exam General Appearance: no apparent distress Respiratory: lungs clear Cardiac/Chest: regular rate, rhythm Abdomen: non-tender, soft Skin: pallor, other (Port on right ok) Lymphatic: no adenopathy ICD10 Worksheet Patient Problems: Problems Problem Status Onset Acute respiratory failure with hypoxia Acute Edema Acute
[2017-03-15] MEDS: predniSONE 20 MG TAB PO SCH (14:35)
--- NOTE | 2017-03-15 15:49 | ASMTCMCOM ---
CM Note CM Note Notes: Spoke with pt re his status as a "self pay" in system. He provided a Medicare Part A only card - CM took to Admissions and they changed his status. Per pt, he has applied for Medicare Part B which hopefully will start in April. discussed discharging pt tomorrow with Rx for 5 days of chemo drug (per pharmacist approx $800-1000 per dose) to be mapped. Informed pharmacist and MD that this was too expensive for MAP. Discussed with CM Director Latricia Connor who stated there was already a plan in place for pt - an agreement has been made between [facility] and [facility] (CM and Oncology Directors) for pt to come to for outpatient infusion. He has done this in the past. Anticipate pt will d/c tomorrow and return for outpt infusion. Date Signed: 03/15/2017 03:48 PM Electronically Signed By:GLYNN Watt
[2017-03-15] MEDS: FILGRASTIM-SNDZ 480 MCG/0.8 ML SYR SC SCH (16:40)
[2017-03-16 05:09] LABS: ADD DIFF? YES; ADD MORPH? NO; ADD SCAN? NO; ATYPICAL LYMPHOCYTE FLAG 0 (0-99); FRAGMENT RBC FLAG 0 (0-99); HEMATOCRIT 24.1 % (40.0-51.0); HEMOGLOBIN 8.4 g/dL (13.7-17.5); LEFT SHIFT FLG 10 (0-99); LIPEMIA HEMOLYSIS FLAG 90 (0-99); MEAN CELL HEMOGLOBIN 31.6 pg (27.9-34.1); MEAN CELL HEMOGLOBIN CONCENTR. 34.9 g/dL (32.4-36.7); MEAN CELL VOLUME 90.6 fL (81.5-99.8); MEAN PLATELET VOLUME 10.4 fL (8.7-11.7); PLATELET CLUMPS FLAG 0 (0-99); PLATELET COUNT 70 10^3/uL (150-400); RED BLOOD CELL COUNT 2.66 10^6/uL (4.40-6.38); RED CELL DISTRIBUTION WIDTH 18.3 % (11.5-15.2)
[2017-03-16 05:34] LABS: PLATELET ESTIMATE DECREASED (ADEQ)
[2017-03-16 08:06] VITALS: BP 137/88; PULSE 83; RESP 16; TEMP 98.1; O2SAT 95
[2017-03-16] MEDS: ENOXAPARIN 40 MG/0.4 ML SYR SC SCH (09:06)
[2017-03-16] MEDS: AMIODARONE HCL 200 MG TAB PO SCH (09:06)
[2017-03-16] MEDS: MULTIVITAMINS 1 EACH TAB PO SCH (09:06)
[2017-03-16] MEDS: ACYCLOVIR 400 MG TAB PO SCH (09:06)
--- NOTE | 2017-03-16 11:02 | SOAPPROG ---
SOAP Progress Note Assessment/Plan: E&M for DLBC NHL * DLBC NHL stage IVB: Day 2 Cycle 2 R-CHOP; had full doses this time. Has bone marrow involvement and had grade 4 neutropenia so need growth factor support. Treatment is for curative and had excellent clinic response to cycle 1. Continue prednisone for total of 5 days (through 03/19). Filgastrim starts today and daily for 7 days. * Anemia: better after transfusion * Fluid retention: much better since starting chemotherapy. Recommend using Lasix along with potassium to decrease edema and get wt<170 lbs PRN. Pretreatment ECHO was normal. * Disposition: Ok to go home per oncology with follow up to check counts next week. Subjective: Feeling great without new complaints. Getting a little more swollen and wt up about 5-10 lbs. Objective: Vital Signs Temp Pulse Resp BP Pulse Ox 36.7 C 83 16 137/88 H 95 03/16/17 08:05 03/16/17 08:05 03/16/17 08:05 03/16/17 08:05 03/16/17 08:05 Laboratory Results 03/16/17 04:45 03/15/17 05:00 03/15/17 03/16/17 03/17/17 05:59 05:59 05:59 Intake Total 2234.5 1500 Balance 2234.5 1500 Physical Exam - Physical Exam General Appearance: no apparent distress Respiratory: lungs clear Cardiac/Chest: regular rate, rhythm, edema Abdomen: soft Skin: other (port on right looks normal) ICD10 Worksheet Patient Problems: Problems Problem Status Onset Acute respiratory failure with hypoxia Acute Edema Acute
[2017-03-16] MEDS ORDERED: FUROSEMIDE 20 MG/2 ML VIAL IVP ONE (11:05)
--- NOTE | 2017-03-16 11:09 | PDDCSUM ---
Discharge Summary Discharge Summary: 72 yo male with Stage IV B cell Lymphoma admitted for Filgastrim, volume overload, and cytopenia. Filgastrim started on the day of admission. This may cytopenia worse and he required PRBC transfusion 2 units on 03/15 as well as growth factor. Overnight he has done well but has worsened pedal edema. He will get IV Lasix x one and then is ready for discharge today. He will continue PO Lasix 20mg daily for now and also K supplementation. He will return daily to our infusion center for Filgastrim. Duration and mgmt per Onc. He is prednisone daily x 5 days. Cleared by Oncology for discharge DDX: #Stage IV B Cell Lymphoma #Pedal edema #Hx of Afib, on Amiodarone #Acute on chronic Anemia, likely malignancy and chemotherapy related #Pancytopenia, chemotherapy induced Exam: VSS NAD AAOX3 RRR CTA B S/NT/ND 1+ EDEMA MEDS: SEE MED REC TOTAL TIME SPENT ON DISCHARGE IS 35 MINUTES
[2017-03-16] MEDS: FILGRASTIM-SNDZ 480 MCG/0.8 ML SYR SC SCH (12:37)
[2017-03-16] MEDS: predniSONE 20 MG TAB PO SCH (12:37)
--- NOTE | 2017-03-16 14:52 | ASDISCHSUM ---
Discharge Information Plan Status:Home with No Needs Medically Cleared to Leave: Discharge Date:03/16/2017 01:04 PM CM D/C Disposition:Home, Routine, Self-Care ADT D/C Disposition:Home, Routine, Self-Care Projected Discharge Date:03/16/2017 01:04 PM Transportation at D/C: Discharge Delay Reason: Follow-Up Date:03/16/2017 01:04 PM Discharge Slot: Final Diagnosis: Placement Information Patient Contact Information Contact Name:BARBARA Relationship: Address:[address] Work Phone: City:[place] Phone: [facility] [address]/Zip Code:[place] [address] Email: Financial Information Financial Class: Primary Plan Desc:MEDICARE INPATIENT Primary Plan Number:[id number] Secondary Plan Desc: Secondary Plan Number: Assessment Information [facility] Progress Note CM Note CM Note Notes: Pt admitted for second round of chemo for lymphoma. Pt continues to have insurance problems. He is hoping to get on [place] Part B and D starting April. He is also applying for medicaid. Pt denied any other needs. Both and his state he is doing fine. He continues to work. Date Signed: 03/14/2017 03:46 PM Electronically Signed By:Lynette Mueller LCSW [facility] CM Progress Note CM Note CM Note Notes: Spoke with pt re his status as a "self pay" in system. He provided a Medicare Part A only card - CM took to Admissions and they changed his status. Per pt, he has applied for Medicare Part B which hopefully will start in April. discussed discharging pt tomorrow with Rx for 5 days of chemo drug (per pharmacist approx $800-1000 per dose) to be mapped. Informed pharmacist and MD that this was too expensive for MAP. Discussed with CM Director Latricia Connor who stated there was already a plan in place for pt - an agreement has been made between [facility] and [facility] (CM and Oncology Directors) for pt to come to for outpatient infusion. He has done this in the past. Anticipate pt will d/c tomorrow and return for outpt infusion. Date Signed: 03/15/2017 03:48 PM Electronically Signed By:GLYNN Watt Case Management Discharge Plan Note Case Management Discharge Discharge Order Complete? Answers: Yes Patient to Obtain Answers: Other Notes: independent and f/u on Medications [facility] floor for outpatient injections Discharge Comments Notes: Today Dr. Villagomez filled out orders for Pt. to get outpatient injections of filgastrim at [facility] infusion. Pt. to have daily injections (5) through 03/21/17. D/c'ed independently with outpatient plan. Date Signed: 03/16/2017 02:51 PM Electronically Signed By:Carolann Addison LCSW Intervention Information
== END 2017-03-16 13:04 | disposition home or self-care (01) | DRG 847 ==
LOC: F1NOP 07:54 → INTOOBSV 08:14 → F1N 08:14 → OBSVTOIN 14:58
PROVIDERS: ADMIT Internal Medicine Hematology & Oncology; ATTEND Family Medicine
PROC: 30233N1 Transfusion of Nonautologous Red Blood Cells into Peripheral Vein, Percutaneous Approach (ICD-10-PCS; principal; 2017-03-14)
PROC: 3E03305 Introduction of Other Antineoplastic into Peripheral Vein, Percutaneous Approach (ICD-10-PCS; principal; 2017-03-14)
DX: Z51.11 Encounter for antineoplastic chemotherapy (principal); C83.30 Diffuse large B-cell lymphoma, unspecified site; D75.9 Disease of blood and blood-forming organs, unspecified; I48.91 Unspecified atrial fibrillation; D64.81 Anemia due to antineoplastic chemotherapy; D63.0 Anemia in neoplastic disease; Z66 Do not resuscitate
CPT/HCPCS: J1200; J1642; J1650; J1940; J2469; J9000; J9070; J9310; J9370; P9016; Q5101-ZA

== ENCOUNTER 2017-03-17 11:15 | Outpatient (CLI) | payer OTHER ==
[2017-03-17] MEDS ORDERED: FILGRASTIM-SNDZ 480 MCG/0.8 ML SYR SC SCH ×2 (11:29→12:00)
[2017-03-17 11:43] VITALS: BP 123/71; PULSE 72; O2SAT 94
== END 2017-03-17 11:56 | disposition home or self-care (01) ==
LOC: F1NOP 11:15
PROVIDERS: ATTEND Student in an Organized Health Care Education/Training Program
PROC: 3E043GC Introduction of Other Therapeutic Substance into Central Vein, Percutaneous Approach (ICD-10-PCS; principal; 2017-03-17)
DX: C85.90 Non-Hodgkin lymphoma, unspecified, unspecified site (principal)
CPT/HCPCS: 96372; Q5101

== ENCOUNTER 2017-03-28 10:51 | Outpatient (CLI) | payer OTHER ==
[2017-03-28] MEDS ORDERED: ACETAMINOPHEN 325 MG TAB PO ONE (11:15)
[2017-03-28] MEDS ORDERED: diphenhydrAMINE 25 MG CAP PO ONE (11:15)
== END 2017-03-28 17:30 | disposition home or self-care (01) ==
LOC: FOBOP 10:51
PROVIDERS: ATTEND Internal Medicine Hematology & Oncology
PROC: 30233N1 Transfusion of Nonautologous Red Blood Cells into Peripheral Vein, Percutaneous Approach (ICD-10-PCS; principal; 2017-03-28)
DX: C85.90 Non-Hodgkin lymphoma, unspecified, unspecified site (principal)
CPT/HCPCS: 36430; J1642; P9016; P9040

== ENCOUNTER 2017-04-06 09:57 | Inpatient (IN) | payer OTHER ==
[2017-04-06] MEDS ORDERED: ONDANSETRON 4 MG/2 ML VIAL IVP PRN (11:15)
[2017-04-06] MEDS ORDERED: ACETAMINOPHEN 325 MG TAB PO PRN ×2 (11:15→12:03)
[2017-04-06] MEDS ORDERED: DEXAMETHASONE 10 MG/ML VIAL IVP PRN (12:03)
[2017-04-06] MEDS ORDERED: NS 1,000 ML IV PRN (12:03)
[2017-04-06] MEDS ORDERED: HYDROCORTISONE 100 MG/2 ML VIAL IVP PRN (12:03)
[2017-04-06] MEDS ORDERED: MEPERIDINE 25 MG/ML SYR IVP PRN (12:03)
[2017-04-06] MEDS ORDERED: NS 500 ML IV PRN (12:03)
[2017-04-06] MEDS ORDERED: ACETAMINOPHEN 325 MG TAB PO ONE (12:30)
[2017-04-06] MEDS ORDERED: diphenhydrAMINE 25 MG CAP PO ONE (12:30)
[2017-04-06] MEDS ORDERED: NS IV ONE ×4 (13:00→18:10)
[2017-04-06] MEDS ORDERED: RITUXIMAB IV ONE (13:00)
[2017-04-06] MEDS ORDERED: CYCLOPHOSPHAMIDE IV ONE ×2 (13:30→17:30)
[2017-04-06] MEDS ORDERED: DOXORUBICIN IV ONE ×2 (14:00→18:00)
[2017-04-06] MEDS ORDERED: vinCRIStine 2 MG in NS 59 ML IV ONE (14:10)
--- NOTE | 2017-04-06 15:22 | GHP ---
[f rep st] HISTORY AND PHYSICAL DATE OF ADMISSION: 04/06/2017 CHIEF COMPLAINT: Chemotherapy need. HISTORY: The patient is a 72-year-old male with a history of B-cell lymphoma, undergoing R-CHOP chem otherapy. He is now presenting for his 3rd round of inpatient chemo. He has tolerated the previous rounds with minimal side effects. He has felt quite well since his last chemo and does not have any recent complaints. There have been no recent illnesses. There has been no chest pain, shortness of breath, nausea, vomiting, or diarrhea. PAST MEDICAL HISTORY: 1. B-cell lymphoma. 2. Atrial fibrillation. 3. Non-melanoma skin cancer of the scalp. MEDICATIONS: Please see computer record for full detailed list. ALLERGIES: No known drug allergies. SOCIAL HISTORY: No smoking. He does have an alcohol history and was drinking heavily until he was d iagnosed with lymphoma, since his diagnosis he has ceased alcohol 100%. He works making [employer]. Lives with his . REVIEW OF SYSTEMS: A complete review of systems obtained. Review of systems negative regarding cons titutional, HEENT, GI, pulmonary, cardiovascular, , hematology, skin, musculoskeletal, endocrine, p sych, except for positives as noted in HPI. FAMILY HISTORY: Reviewed, noncontributory to presenting complaint. PHYSICAL EXAMINATION: GENERAL: Well-developed, well-nourished male, in no distress. VITAL SIGNS: Temperature is 36.9, pulse 73, blood pressure 127/73, saturating 96% on room air. EYES: Normal conj unctivae. Pupils round and reactive to light. ENT: Normal ears and nose. Hearing intact. Normal teeth. Oropharynx moist. NECK: Trachea midline. No thyromegaly. CHEST: Normal respiratory effort. LUNGS: Clear to auscultation bilaterally. CARDIOVASCULAR: Regular rhythm. No murmur. No lower ex tremity edema. ABDOMEN: Soft, nontender. No hepatosplenomegaly. SKIN: Warm, dry, intact. No amy h. MUSCULOSKELETAL: No cyanosis or clubbing. Strength 5/5 in upper and lower extremities. NEUROLO GIC: Cranial nerves intact. Normal sensation to light touch. PSYCH: Alert and oriented x3. Thais l affect. Normal judgment. Normal memory. LABS: White count 2.17, hematocrit 23.5, platelets 92. Sodium 139, potassium 4.1, chloride 102, bic arb 27, BUN 9, creatinine 0.7, glucose 93, total bili 1.5, total protein 6.1. MEDICAL RECORD REVIEW: I reviewed his previous medical records, including previous hospitalizations regarding chemotherapy, which appeared to proceed uneventfully. ASSESSMENT/PLAN: 1. B-cell lymphoma R-CHOP chemotherapy per Oncology. 2. Atrial fibrillation. Continue amiodarone. He does not appear to be on any antiplatelet or antic oagulation for stroke prevention. I suspect he is currently in a normal sinus rhythm. 3. Pancytopenia. We will follow his counts as an inpatient while getting chemotherapy. 4. History of heavy alcohol use. We will check LFTs to assess hepatic function in the morning. CODE STATUS: Full. ADMISSION STATUS: 1. We will admit to inpatient. Anticipate 2 midnights to administer chemotherapy. 2. Deep vein thrombosis prophylaxis. He is high risk given his malignancy, however, does have throm bocytopenia that may worsen with chemotherapy, so we will hold off on pharmacologic prophylaxis at th is time. /[id number]/MODL
[2017-04-06] MEDS ORDERED: PALONOSETRON HCL 0.25 MG/5 ML VIAL IVP ONE (17:00)
[2017-04-06] MEDS: predniSONE 20 MG TAB PO SCH (17:09)
--- NOTE | 2017-04-06 17:50 | PDMN ---
Medical Necessity Medical necessity: est los>2mn for 3rd round of IP chemo for B cell lymphoma; comorbid afib, pancytopenia, hx heavy etoh use; per order and H&P 04/06/17
[2017-04-06] MEDS ORDERED: VINCRISTINE IV ONE (18:10)
[2017-04-06] MEDS: ACYCLOVIR 400 MG TAB PO SCH (20:37)
[2017-04-06] MEDS: AMIODARONE HCL 200 MG TAB PO SCH (20:37)
--- NOTE | 2017-04-07 00:33 | GCON ---
[f rep st] CONSULTATION REASON FOR CONSULTATION: Lymphoma requiring chemotherapy. HISTORY OF PRESENT ILLNESS: The patient is a 72-year-old man diagnosed with stage IVB diffuse large B-cell lymphoma earlier this fall. He presented with weight loss, fatigue, night sweats, cytopenias, and anasarca. He received his 1st cycle of chemotherapy at the end of January with R-chop with redu elle dose Adriamycin and vincristine due to elevated bilirubin. He has been responding to therapy and is admitted today for cycle 3 of R-chop. He feels significantly better than before starting chemoth erapy. Lower extremity edema has significantly improved. PAST MEDICAL HISTORY: 1. Nonmelanoma skin cancers. 2. Atrial fibrillation during his initial hospitalization. SURGICAL HISTORY: Unremarkable. ALLERGIES: No known drug allergies. SOCIAL HISTORY: Prior alcohol use. He is . Nonsmoker. FAMILY HISTORY: Noncontributory. REVIEW OF SYSTEMS: CONSTITUTIONAL: Improved energy, no fever, chills. CARDIOVASCULAR: No exertion al chest pain, palpitations, PND, orthopnea, or lower extremity edema. RESPIRATORY: No cough, pleur isy, dyspnea. GI: No nausea, vomiting, diarrhea, constipation. NEUROLOGIC: No peripheral neuropat hy. LYMPH: He has noted no adenopathy. HEMATOLOGIC: No bleeding or bruising. PHYSICAL EXAM: VITAL SIGNS: Blood pressure 115/59, pulse 72, respirations 15, 92% on room air afebr ile. GENERAL: A pleasant gentleman in no acute distress. CARDIOVASCULAR: Regular rate and rhythm, trace pretibial edema. LUNGS: Clear to auscultation bilaterally. ABDOMEN: Soft, nontender, witho ut hepatosplenomegaly. SKIN: No petechiae, ecchymoses. Right port site without erythema or tendern ess. LABORATORY STUDIES: (04/04/2017) WBC 2.1, ANC 0.9, hemoglobin 8.1, platelets 92,000. CMP remarkable for total bilirubin 1.5. IMPRESSION/PLAN: 1. Stage IVB diffuse large B-cell lymphoma, responding to therapy. He will receive cycle 3 of R-cho p with filgrastim support. 2. Pancytopenia related to lymphoma and therapy. /[id number]/MODL
[2017-04-07 06:12] LABS: % IMMATURE GRANULYOCYTES 1.2 % (0.0-1.1); ABSOLUTE IMMATURE GRANULOCYTES 0.02 10^3/uL (0.00-0.10); ADD DIFF? NO; ADD MORPH? YES; ADD SCAN? YES; FRAGMENT RBC FLAG 20 (0-99); HEMATOCRIT 21.4 % (40.0-51.0); HEMOGLOBIN 7.5 g/dL (13.7-17.5); LEFT SHIFT FLG 0 (0-99); LIPEMIA HEMOLYSIS FLAG 90 (0-99); MEAN CELL HEMOGLOBIN 32.5 pg (27.9-34.1); MEAN CELL VOLUME 92.6 fL (81.5-99.8); MEAN PLATELET VOLUME 10.2 fL (8.7-11.7); PLATELET CLUMPS FLAG 0 (0-99); PLATELET COUNT 91 10^3/uL (150-400); RED BLOOD CELL COUNT 2.31 10^6/uL (4.40-6.38)
[2017-04-07 06:24] LABS: INR 1.13 (0.83-1.16); PROTIME(PATIENT) 14.7 SEC (12.0-15.0)
[2017-04-07 06:25] LABS: ATYPICAL LYMPHOCYTE FLAG 100 (0-99); RED CELL DISTRIBUTION WIDTH 20.9 % (11.5-15.2)
[2017-04-07 06:31] LABS: SCAN NEGATIVE
[2017-04-07 06:32] LABS: HYPOCHROMIA 1+; MACROCYTES 2+; MICROCYTES 2+; PLATELET ESTIMATE DECREASED (ADEQ); POLYCHROMASIA 1+
[2017-04-07 06:33] LABS: ALANINE AMINOTRANSFERASE 28 IU/L (21-72); ALBUMIN 3.3 g/dL (3.5-5.0); ALKALINE PHOSPHATASE 83 IU/L (38-126); ANION GAP 14 mEq/L (8-16); ASPARTATE AMINOTRANSFERASE 16 IU/L (17-59); BILIRUBIN,TOTAL 1.1 mg/dL (0.1-1.4); BILIRUBIN-CONJUGATED 0.2 mg/dL (0.0-0.5); BILIRUBIN-UNCONJUGATED 0.9 mg/dL (0.0-1.1); CALCIUM 8.2 mg/dL (8.5-10.4); CARBON DIOXIDE 20 mEq/l (22-31); CHLORIDE 105 mEq/L (97-110); CREATININE 0.6 mg/dL (0.7-1.3); GLOMERULAR FILTRATION RATE > 60; GLUCOSE 112 mg/dL (70-100); POTASSIUM 4.5 mEq/L (3.5-5.2); SODIUM 139 mEq/L (134-144); TOTAL PROTEIN 5.7 g/dL (6.3-8.2)
[2017-04-07] MEDS: AMIODARONE HCL 200 MG TAB PO SCH ×2 (09:46→20:56)
[2017-04-07] MEDS: POTASSIUM CL 10 MEQ TAB PO SCH (09:46)
[2017-04-07] MEDS: ACYCLOVIR 400 MG TAB PO SCH ×2 (09:46→20:56)
[2017-04-07] MEDS ORDERED: ACETAMINOPHEN 325 MG TAB PO ONE (12:19)
[2017-04-07] MEDS: FILGRASTIM-SNDZ 480 MCG/0.8 ML SYR SC SCH (14:36)
--- NOTE | 2017-04-07 16:08 | HOSPPROG ---
Hospitalist Progress Note Assessment/Plan: * B cell lymphoma -s/p R CHOP * Anemia of malignancy -transfuse today * Afib -PO amiodarone * Pancytopenia -follow post chemo Subjective: No new complaints. Objective: Vital Signs Temp Pulse Resp BP Pulse Ox 36.9 C 82 18 110/63 93 04/07/17 11:47 04/07/17 11:47 04/07/17 11:47 04/07/17 11:47 04/07/17 11:47 Laboratory Results 04/07/17 06:00 04/07/17 06:00 04/06/17 04/07/17 04/08/17 05:59 05:59 05:59 Intake Total 2526 Balance 2526 PT 14.7 SEC (12.0-15.0) 04/07/17 06:00 INR 1.13 (0.83-1.16) 04/07/17 06:00 - Physical Exam Constitutional: no apparent distress, appears nourished, not in pain Cardiovascular: regular rate and rhythym, no murmur, rub, or gallop Respiratory: no respiratory distress, no rales or rhonchi, clear to auscultation Gastrointestinal: normoactive bowel sounds, soft, non-tender abdomen, no palpable masses Skin: no rashes or abrasions, no fluctuance, no induration Neurologic: AAOx3, sensation intact bilaterally Psychiatric: interacting appropriately, not anxious, not encephalopathic, thought process linear ICD10 Worksheet Patient Problems: Problems Problem Status Onset Acute respiratory failure with hypoxia Acute Edema Acute
[2017-04-07] MEDS: predniSONE 20 MG TAB PO SCH (16:58)
[2017-04-07] MEDS ORDERED: FILGRASTIM-SNDZ 480 MCG/0.8 ML SYR SC SCH (18:45)
[2017-04-07 20:48] VITALS: RESP 16; O2SAT 93
[2017-04-07] MEDS ORDERED: IOPAMIDOL (ISOVUE-300) 100 ML BTL ONE (21:02)
--- NOTE | 2017-04-07 21:28 | GCON ---
[f rep st] CONSULTATION ONCOLOGY CONSULTATION REASON FOR CONSULTATION: Evaluation management of diffuse large B-cell lymphoma. HISTORY OF PRESENT ILLNESS: The patient is a 72-year-old gentleman diagnosed with a stage IVB diffuse large B-cell lymphoma in mid January. He presented with weight loss, fatigue, night sweats, and significant cytopenias. His bone marrow is involved. He has received 2 cycles of rituximab and CHOP with an excellent response. His courses have been complicated by cytopenias requiring some blood transfusion, although not any platelet transfusions. He has also needed growth factor, but has not had trouble with febrile neutropenia. He is being admitted for his 3rd cycle of chemotherapy. He has been feeling well without any bleeding or bruising. He denies any fever or chills. The swelling in his lower extremities is nearly gone, and he is not taking Lasix very often. PAST MEDICAL HISTORY: He has no known drug allergies. HOME MEDICATIONS: Include potassium, nystatin, multivitamin, amiodarone, and acyclovir. CHRONIC ILLNESSES: Include: 1. Lymphoma, as described above. 2. Atrial fibrillation, followed by Cardiology. 3. Non-melanotic skin cancer of the scalp. SURGICAL HISTORY: Unremarkable. SOCIAL HISTORY: Nonsmoker. Works in [employer]. Previously was drinking about 20 alcoholic drinks per week. FAMILY HISTORY: Noncontributory. REVIEW OF SYSTEMS: 10-point review of systems performed. Pertinent positives in HPI; otherwise negative. PHYSICAL EXAMINATION: VITAL SIGNS: Temperature is 36.9, pulse 82, blood pressure is 110/63. In general, he is a well-appearing, pale gentleman but in no distress. HEENT: Unremarkable. LUNGS: Clear. CARDIAC: Currently regular with a soft systolic murmur. ABDOMEN: Soft without palpable masses or splenomegaly. Zulma exam reveals no palpable peripheral lymphadenopathy today. Port is on the right side. NEUROLOGIC: Grossly intact. LABORATORY DATA: On the , white count of 2200, hemoglobin 8.1, platelet count 92,000. ANC was just under 1000. Chemistries on the were unremarkable. Total bilirubin 1.5. IMPRESSION: 1. Stage IV diffuse large B-cell lymphoma. 2. Cytopenia secondary to malignancy and chemotherapy. 3. Atrial fibrillation during presentation of cancer and initiating therapy. Follow up on amiodarone and followed by Cardiology. He received his 3rd cycle of R-CHOP yesterday and tolerated it well. His hemoglobin is down to 7.5, and it will continue to drop, so I will set him up for a unit of blood today. There is no need for platelets today. While he is in the hospital, I will also repeat CT scans to assess the status of his cancer. He will need to go home on short-acting growth factor and we will follow him up closely in the outpatient setting. /[id number]/MODL MTDD
[2017-04-08 06:16] LABS: % IMMATURE GRANULYOCYTES 2.7 % (0.0-1.1); ABSOLUTE IMMATURE GRANULOCYTES 0.28 10^3/uL (0.00-0.10); ADD DIFF? NO; ADD MORPH? YES; ADD SCAN? NO; ATYPICAL LYMPHOCYTE FLAG 0 (0-99); FRAGMENT RBC FLAG 0 (0-99); HEMATOCRIT 23.6 % (40.0-51.0); HEMOGLOBIN 8.4 g/dL (13.7-17.5); LEFT SHIFT FLG 40 (0-99); LIPEMIA HEMOLYSIS FLAG 90 (0-99); MEAN CELL HEMOGLOBIN 31.9 pg (27.9-34.1); MEAN CELL HEMOGLOBIN CONCENTR. 35.6 g/dL (32.4-36.7); MEAN CELL VOLUME 89.7 fL (81.5-99.8); MEAN PLATELET VOLUME 9.4 fL (8.7-11.7); PLATELET CLUMPS FLAG 0 (0-99); PLATELET COUNT 110 10^3/uL (150-400); RED BLOOD CELL COUNT 2.63 10^6/uL (4.40-6.38)
[2017-04-08 06:28] LABS: ANION GAP 14 mEq/L (8-16); CALCIUM 8.5 mg/dL (8.5-10.4); CARBON DIOXIDE 22 mEq/l (22-31); CHLORIDE 104 mEq/L (97-110); CREATININE 0.6 mg/dL (0.7-1.3); GLOMERULAR FILTRATION RATE > 60; GLUCOSE 114 mg/dL (70-100); POTASSIUM 4.2 mEq/L (3.5-5.2); SODIUM 140 mEq/L (134-144)
[2017-04-08 06:30] LABS: RED CELL DISTRIBUTION WIDTH 21.6 % (11.5-15.2)
[2017-04-08 06:54] LABS: MACROCYTES 1+; MICROCYTES 2+; PLATELET ESTIMATE DECREASED (ADEQ)
[2017-04-08 07:20] VITALS: BP 104/67; PULSE 95; TEMP 98
[2017-04-08] MEDS: POTASSIUM CL 10 MEQ TAB PO SCH (08:20)
[2017-04-08] MEDS: ACYCLOVIR 400 MG TAB PO SCH (08:21)
[2017-04-08] MEDS: AMIODARONE HCL 200 MG TAB PO SCH (08:21)
--- NOTE | 2017-04-08 11:43 | SOAPPROG ---
SOHILDA Progress Note Assessment/Plan: E&M for lymphoma * Stage IVB DLBC NHL: day 3, cycle 3 of R-CHOP; ok to go home with G-CSF support for a total of [address] with radiology. Significant improvement compared to initial scan. See below re: lung * Right Pleural effusion: this was initially small but now larger. However, after first CT but just prior to starting chemo, he developed significant fluid overload and anasarca. It is possible the effusion was worse and now getting better. He is asymptomatic. I recommend following it with CXR. * Anemia and thrombocytopenia: due to lymphoma and therapy; will monitor out patient * Disposition: Ok to go home with f/u Sunday. Subjective: Doing well without n/v, fever, or sob. Objective: Vital Signs Temp Pulse Resp BP Pulse Ox 36.6 C 95 16 104/67 93 04/08/17 07:19 04/08/17 07:19 04/08/17 07:19 04/08/17 07:19 04/08/17 07:19 Laboratory Results 04/08/17 05:55 04/08/17 05:55 04/07/17 04/08/17 04/09/17 05:59 05:59 05:59 Intake Total 2526 0 Balance 2526 0 PT 14.7 SEC (12.0-15.0) 04/07/17 06:00 INR 1.13 (0.83-1.16) 04/07/17 06:00 CT Chest W IV Contrast ___ 1. CT Scan of the Chest (With Contrast) Impression: 1. Bilateral pleural effusions and adjacent lung compression, right greater than left. 2. CT Scan of the Abdomen and Pelvis (With Contrast) Impression:1. Splenomegaly 2. Shotty inguinal and external iliac adenopathy. 3. Cystic lesion right iliac bone, possibly an incidental benign bone cyst. 4. Possible noncalcified cholelithiasis. If clinically indicated consider gallbladder sonogram. Dictated By: Hugo Arevalo MD Physical Exam - Physical Exam General Appearance: no apparent distress Respiratory: decreased breath sounds (right base) Cardiac/Chest: regular rate, rhythm Abdomen: soft Skin: other (Port on right without infection) ICD10 Worksheet Patient Problems: Problems Problem Status Onset Acute respiratory failure with hypoxia Acute Edema Acute
[2017-04-08] MEDS: FILGRASTIM-SNDZ 480 MCG/0.8 ML SYR SC SCH (13:40)
--- NOTE | 2017-04-08 14:12 | ASDISCHSUM ---
Discharge Information Plan Status:Home with No Needs Medically Cleared to Leave:04/07/2017 Discharge Date:04/08/2017 02:06 PM CM D/C Disposition:Home, Routine, Self-Care ADT D/C Disposition:Home, Routine, Self-Care Projected Discharge Date:04/08/2017 03:00 PM Transportation at D/C:Family Discharge Delay Reason: Follow-Up Date:04/08/2017 03:00 PM Discharge Slot:2 - 12:01 pm - 18:00 pm Final Diagnosis:B-cell lymphoma-Chemo tx Placement Information Patient Contact Information Contact Name:BARBARA Relationship: [facility] Work Phone: Gonzalez:VIRA Amin Phone: [facility]/Zip Code:[place] [address] Email: Financial Information Financial Class: Primary Plan Desc:MEDICARE INPATIENT Primary Plan Number:[id number] Secondary Plan Desc: Secondary Plan Number: Assessment Information Case Management Discharge Plan Note Case Management Discharge Discharge Order Complete? Answers: Yes Patient to Obtain Answers: via Family Medications Transportation Arranged Answers: Family/Friends Transport will Pick (Date 04/08/2017 03:00 PM & Time) Family Notified Answers: Yes Notes: Family to transport Discharge Comments Notes: patient admitted for B-cell lymphoma-chemo tx. He has a hx of Afib, skin CA of the scalp, heavy ETOH. Patient stopped drinking ETOH when dx with CA. He came in for chemo tx and is being discharged home with , no other needs at this time. Date Signed: 04/08/2017 02:12 PM Electronically Signed By:January Ludwig LCSW Intervention Information
--- NOTE | 2017-04-09 02:53 | GDS ---
[f rep st] DISCHARGE SUMMARY DISCHARGE DIAGNOSES: 1. B-cell lymphoma. 2. Anemia of malignancy. 3. Atrial fibrillation. 4. Pancytopenia. 5. Bilateral pleural effusions, right greater than left. HISTORY: The patient is a 72-year-old male with B-cell lymphoma. He was admitted for inpatient chem otherapy with R-CHOP. This was under the direction of Dr. Villagomez. He developed a significant anemia and required [address] scan of the abdomen and pelvis was performed, which showed improve ment in his lymphoma. There are, however, bilateral pleural effusions, right greater than left. Dr. Villagomez believes this is the result of his previous anasarca and they will absorb with time. He recom mends following chest x-ray as an outpatient to ensure resolution. DISCHARGE MEDICATIONS: Please see computerized record for full detailed list. There are no new medi cations given at time of hospital discharge. ADDITIONAL DISCHARGE INSTRUCTIONS: 1. Repeat chest x-ray as an outpatient to re-evaluate pleural effusions. 2. Follow up with Dr. Villagomez regarding ongoing chemotherapy needs. Greater than 30 minutes' time was spent arranging this discharge. Patient seen and examined by me on day of discharge. /[id number]/MODL
--- NOTE | 2017-04-11 16:06 | PQFORM ---
PHYSICIAN QUERY FORM Needs Your Response This query form is being sent to you to assure this patient record is coded properly. Please respond to the question below: TECHNICAL BUYER QUESTION: Dr Brown This Patient with B Cell Lymphoma also has documented Pleural Effusions. Are the Pleural Effusions: ___ Malignant (Primary) ___ Malignant (Metastatic) __x_ Non Malignant ___ Other (Please specify ) ___ Unable to Determine Thank You Alexandra MEREDITH [employer] Cutting Machine Operator INSTRUCTIONS FOR RESPONSE: Answer question by clicking on the "Edit Document" button. Move cursor to area below the stars. When complete, hit "Save." Click on the "Sign" button, then click "Sign" again. Type in your PIN and hit "Enter." MTDD
== END 2017-04-08 14:06 | disposition home or self-care (01) | DRG 846 ==
LOC: F1NOP 09:57 → F1N 10:55 → UNDOADMIN 10:55 → F1N 11:14
PROVIDERS: ADMIT Internal Medicine; ATTEND Internal Medicine
PROC: 30233N1 Transfusion of Nonautologous Red Blood Cells into Peripheral Vein, Percutaneous Approach (ICD-10-PCS; principal; 2017-04-06)
DX: Z51.11 Encounter for antineoplastic chemotherapy (principal); C83.30 Diffuse large B-cell lymphoma, unspecified site; J90 Pleural effusion, not elsewhere classified; D61.810 Antineoplastic chemotherapy induced pancytopenia; I48.91 Unspecified atrial fibrillation; D63.8 Anemia in other chronic diseases classified elsewhere
CPT/HCPCS: J1642; J2469; J9000; J9070; J9310; J9370; P9016; P9040; Q5101-ZA; Q9967

== ENCOUNTER → 2017-04-09 | Outpatient (CLI) | payer SELFPAY ==
[~2017-04-09] MED LIST changes: -ACETAMINOPHEN 325 MG TAB PO PRN; -ALTEPLASE 2 MG VIAL IVP PRN; +FILGRASTIM-SNDZ 480 MCG/0.8 ML SYR SC ONE; -FILGRASTIM-SNDZ 480 MCG/0.8 ML SYR SC SCH; -ONDANSETRON 4 MG/2 ML VIAL IVP PRN
[2017-04-09 12:54] VITALS: BP 142/72; PULSE 79; RESP 16; TEMP 98.4; O2SAT 94
== END ==
LOC: F1NOP 11:48 → F3EOP 11:48 → EDSTATUS 15:24
PROVIDERS: ATTEND Internal Medicine Hematology & Oncology
PROC: 3E00XGC Introduction of Other Therapeutic Substance into Skin and Mucous Membranes, External Approach (ICD-10-PCS; principal; 2017-04-09)
DX: C85.90 Non-Hodgkin lymphoma, unspecified, unspecified site (principal)
CPT/HCPCS: 96372; Q5101

== ENCOUNTER → 2017-04-19 | Outpatient (CLI) | payer OTHER ==
[~2017-04-19] MED LIST changes: +ACETAMINOPHEN 325 MG TAB PO ONE; -FILGRASTIM-SNDZ 480 MCG/0.8 ML SYR SC ONE; +diphenhydrAMINE 25 MG CAP PO ONE
== END | disposition home or self-care (01) ==
LOC: FOBOP 09:24
PROVIDERS: ATTEND Internal Medicine Hematology & Oncology
PROC: 30243N1 Transfusion of Nonautologous Red Blood Cells into Central Vein, Percutaneous Approach (ICD-10-PCS; principal; 2017-04-19)
DX: C85.90 Non-Hodgkin lymphoma, unspecified, unspecified site (principal); D70.1 Agranulocytosis secondary to cancer chemotherapy; I48.91 Unspecified atrial fibrillation; B35.4 Tinea corporis; D63.0 Anemia in neoplastic disease
CPT/HCPCS: J1642; P9016; P9040

== ENCOUNTER 2017-04-27 10:26 | Inpatient (IN) | payer OTHER ==
[2017-04-27] MEDS ORDERED: ONDANSETRON DISINTEGRATING 4 MG TAB PO PRN (11:12)
[2017-04-27] MEDS ORDERED: ONDANSETRON 4 MG/2 ML VIAL IVP PRN (11:12)
[2017-04-27] MEDS ORDERED: ACETAMINOPHEN 325 MG TAB PO PRN (11:30)
[2017-04-27] MEDS ORDERED: NS 1,000 ML IV PRN (11:30)
[2017-04-27] MEDS ORDERED: NS 500 ML IV PRN (11:30)
[2017-04-27] MEDS ORDERED: HYDROCORTISONE 100 MG/2 ML VIAL IVP PRN (11:30)
[2017-04-27] MEDS ORDERED: MEPERIDINE 25 MG/ML SYR IVP PRN (11:30)
[2017-04-27] MEDS ORDERED: DEXAMETHASONE 10 MG/ML VIAL IVP PRN (11:30)
--- NOTE | 2017-04-27 12:37 | GCON ---
[f rep st] CONSULTATION NEW PATIENT CONSULTATION REASON FOR CONSULTATION: Evaluation and management of diffuse large B-cell lymphoma. The patient ad mitted for cycle 4 of R-CHOP. HISTORY OF THE PRESENT ILLNESS: This patient is a 72-year-old gentleman diagnosed with stage IVB dif fuse large B-cell lymphoma in mid January 2017. He presented with weight loss, fatigue, night sweats , and significant cytopenias. His bone marrow is involved. He has received 3 cycles of rituximab an d CHOP with excellent response. He had CT chest, abdomen, pelvis done his last admission that shows dramatic response compared to upfront imaging. He did have a slight pleural effusion that was larger , but this was deemed secondary to fluid overload from fluids and blood products. His course has bee n complicated by cytopenias requiring some blood transfusions, although not any platelets up to this point. He has needed growth factor, but has not had trouble with febrile neutropenia. He is being admitted for his 4th cycle of chemotherapy. He has been feeling relatively well without any bleeding or bruising. He denies fevers, chills. Swelling in his lower extremities has almost josey e. He is not taking Lasix very often. His labs from 04/25 have been reviewed and the only thing to me ntion that his platelets are 70,000. CMP is unremarkable. HOME MEDICATIONS: Potassium, nystatin, multivitamin, amiodarone, and acyclovir. Past medical histor y lymphoma as described above. PAST MEDICAL HISTORY: 1. Lymphoma as described above. 2. Atrial fibrillation followed by Cardiology. 3. Non melanotic skin cancer of the scalp. PAST SURGICAL HISTORY: Unremarkable. SOCIAL HISTORY: Nonsmoker. Works as an upholsterer. Previously was drinking about 20 alcoholic drin ks per week. FAMILY HISTORY: Noncontributory. REVIEW OF SYSTEMS: A 10-point review of systems performed and pertinent positives in HPI, otherwise negative. PHYSICAL EXAM: VITAL SIGNS: Today, blood pressure 140/82, pulse of 102, respiration 18, saturating 92% on room air, temp 37.6. GENERAL: Well appearing, no acute distress. HEENT: Unremarkable. LUNGS: Slight decreased breath sounds at left lower base, otherwise normal. Moving air well. ABDOMEN: So ft. Bowel sounds are positive. I did not feel the liver, spleen. Chest port is on right side. NEUR OLOGIC: Grossly intact lower. LOWER EXTREMITIES: No edema. LABORATORY: On the , shows a white blood cell count 3.12, hemoglobin 9.2, hematocrit 26.7, platel et count of 70,000. His ANC is 1.67. Chemistry was completely normal. Total protein slightly low at 5.8. IMPRESSION AND PLAN: A 72-year-old gentleman with stage IV diffuse large B-cell lymphoma, admitted f or 4 cycles of R-CHOP today. 1. Stage IV diffuse large B-cell lymphoma, having a response, doing well, having some issues with cy topenias, but okay to go ahead with chemotherapy today. I have reviewed his regimen. 2. Cytopenia secondary to malignancy and chemotherapy. Will likely need platelets and maybe packed red blood cells this admission. He will also need growth factor as an outpatient. 3. Atrial fibrillation during presentation of cancer and initiating therapy. Followup on amiodarone and followed by Cardiology. Continue to monitor while in hospital. /[id number]/MODL
[2017-04-27] MEDS ORDERED: ACETAMINOPHEN 500 MG TAB PO PRN (12:38)
[2017-04-27 12:43] LABS: PLATELET COUNT 62 10^3/uL (150-400)
[2017-04-27] MEDS ORDERED: ACETAMINOPHEN 325 MG TAB PO SCH (13:00)
[2017-04-27] MEDS ORDERED: diphenhydrAMINE 25 MG CAP PO SCH (13:00)
[2017-04-27] MEDS ORDERED: PALONOSETRON HCL 0.25 MG/5 ML VIAL IVP SCH (13:00)
[2017-04-27] MEDS ORDERED: predniSONE 20 MG TAB PO SCH (13:00)
[2017-04-27] MEDS: ACETAMINOPHEN 325 MG TAB PO PRN ×2 (13:15→23:53)
[2017-04-27] MEDS ORDERED: RITUXIMAB IV SCH (14:00)
[2017-04-27] MEDS ORDERED: LR 1,000 ML IV SCH (14:00)
[2017-04-27] MEDS ORDERED: NS IV SCH ×2 (14:00→16:30)
--- NOTE | 2017-04-27 14:23 | GHP ---
[f rep st] HISTORY AND PHYSICAL DATE OF ADMISSION: 04/27/2017 CHIEF COMPLAINT: Elective R-CHOP chemo, fevers. HISTORY OF PRESENT ILLNESS: A pleasant 72-year-old male, B-cell lymphoma and hypertension, being adm itted for his 4th cycle of chemotherapy. He was diagnosed in mid January 2017. He initially present ed with weight loss, fatigue, night sweats, and significant cytopenias. He received 3 cycles of lyndon ximab and CHOP with good response. CT, April 08, showed a significant response to initial imaging . He does have chronic pleural effusions, right greater than left. He reports fevers that began last night, 101-102 at home. Endorses sweats, chills, a little bit of e mesis last night, nonbloody. Also new productive cough of yellow-brown sputum. Myalgias and headach e. He said he thinks he may have been exposed to an ill person at clinic last week, but no ill conta cts at home. REVIEW OF SYSTEMS: I completed a 10-point review of systems; negative, except as noted in HPI. PAST MEDICAL HISTORY: B-cell lymphoma, atrial fibrillation, non-melenic skin cancer of the scalp, hy pertension. PAST SURGICAL HISTORY: None. SOCIAL HISTORY: Nonsmoker. 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 No tobacco. He wa s drinking 20 alcoholic drinks per week. ALLERGIES: None. HOME MEDICATIONS: Multivitamin, amiodarone, acyclovir, and Tylenol. PHYSICAL EXAMINATION: VITAL SIGNS: Temperature 39.5, blood pressure 124/72, heart rate 102, respira tions 18, 90% on room air. GENERAL: Well appearing, sitting up in bed. No acute distress. HEENT: Abraham cheeks. Oropharynx is clear. No exudate or erythema. No difficulty swallowing CV: Tachy, b ut regular. No murmurs, gallops, rubs. LUNGS: Clear to auscultation, but decreased breath sounds a t right base. ABDOMEN: Soft, nontender, nondistended. Positive bowel sounds. : No suprapubic t enderness. SKIN: Warm, dry. No rash or ulceration. Tattoos. MUSCULOSKELETAL: 5/5 upper and lowe r extremity strength. NEURO: 2 through 12 intact. PSYCH: Alert and oriented x3. LABS: WBC 3.6, hemoglobin 8.6, hematocrit 24, platelets 62. Sodium 139, potassium 3.6, chloride 104 , carbon dioxide 22, creatinine 0.8, glucose 116, calcium 8.1, AST 15, ALT 19, total protein 5.6, alb umin is 3.5. Negative respiratory panel. Blood and sputum cultures pending. Chest x-ray: Personally reviewed. Right lower lobe effusion, which is similar to prior. ASSESSMENT AND PLAN: 1. Systemic inflammatory response syndrome. Tachycardic. Fevers. Concern for infection, given imm unocompromised with chemo. He is not neutropenic currently. Has a negative respiratory panel. Will cover for healthcare-associated pneumonia, given new sputum production and cough. It is difficult t o discern if chronic right effusion is infection or not. If not clinically improved, we will check a CT of the chest. Blood and sputum cultures are pending, as well as a UA. Check procalcitonin. 2. B-cell lymphoma. He was electively admitted for 4th cycle; however, this is on hold, given acute fever. 3. Tachycardia secondary to infection. We will hydrate. 4. Atrial fibrillation, currently normal sinus rhythm. Will continue amiodarone. Not on anticoagul ation. 5. Deep venous thrombosis prophylaxis. Lovenox. DISPOSITION: Patient warrants inpatient admission given acute SIRS, requiring further evaluation, IV antibiotics. /[id number]/MODL
[2017-04-27] MEDS: CEFEPIME HCL 2 GM in NS 100 ML IV SCH ×2 (14:31→20:39)
[2017-04-27] MEDS ORDERED: VANCOMYCIN 1 GM in NS 250 ML IV SCH (15:00)
--- NOTE | 2017-04-27 15:23 | PDMN ---
Medical Necessity Medical necessity: est los>2mn for SIRS w/tachycardia, fevers, concern for infection; will hold planned chemo r/t fever, ? HCAP; admit for IVF, IV abx; comorbid B cell lymphoma, immunocompromised r/t chemo, afib; per order and H&P
[2017-04-27] MEDS: VANCOMYCIN HCL/NORMAL SALINE 250 ML IV SCH (15:42)
--- NOTE | 2017-04-27 16:10 | ASMTCMCOM ---
CM Note CM Note Notes: Pt admitted for chemo. Met with pt and . Pt is doing well at home. Pt is working with a [place] Medicaid specialist in [place] to get approved. He also states that his Medicare Part B will not be active until September 21. Date Signed: 04/27/2017 04:10 PM Electronically Signed By:Lynette Mueller LCSW
[2017-04-27] MEDS ORDERED: CYCLOPHOSPHAMIDE IV SCH (16:30)
[2017-04-27] MEDS ORDERED: DOXORUBICIN IV SCH (17:00)
[2017-04-27] MEDS ORDERED: vinCRIStine 2 MG in NS 59 ML IV SCH (17:10)
[2017-04-27] MEDS: AMIODARONE HCL 200 MG TAB PO SCH ×2 (20:39→21:28)
[2017-04-27] MEDS: ACYCLOVIR 400 MG TAB PO SCH (20:39)
[2017-04-28] MEDS: VANCOMYCIN HCL/NORMAL SALINE 250 ML IV SCH ×2 (04:09→16:10)
[2017-04-28] MEDS: CEFEPIME HCL 2 GM in NS 100 ML IV SCH ×3 (06:01→22:15)
[2017-04-28] MEDS: ACETAMINOPHEN 325 MG TAB PO PRN ×3 (06:06→20:26)
[2017-04-28] MEDS ORDERED: NS 1,000 ML IV ONE (07:40)
--- NOTE | 2017-04-28 08:25 | HOSPPROG ---
Hospitalist Progress Note Assessment/Plan: #Sepsis: tachy, fever, elevated lactate. Treating for HCAP PNA with recent chemo /immunosuppression, positive procalcitonin. Negative resp panel. -Pending: Strep/Legionella Ag, blood/urine cultures. Cont Vanc, Cefepime -if continues to fever, check CT scan #Diffuse B-cell lymphoma: was admitted for 4th CHOP cycle. On hold -ppx acyclovir #Tachycardia: due to fever #Fever: plan as above #H/o a fib: amiodarone #Lactic acidosis: resolved with IVFs #Chemo-related pancytopenia: transfuse if Hb<7 #Diet: regular #Disp: requires inpt admission for PNA treatment, IV abx Subjective: no dyuria or diarrhea Objective: Vital Signs Temp Pulse Resp BP Pulse Ox 38.8 C H 113 H 18 121/69 H 94 04/28/17 07:37 04/28/17 07:37 04/28/17 07:37 04/28/17 07:37 04/28/17 07:37 Microbiology 04/27/17 12:00 - Final Sputum, Expectorated Sputum Culture - Final 04/27/17 12:13 Respiratory Panel (PCR) - Final Nasal, Sinus - Swab No Organism Detected Laboratory Results 04/28/17 04:15 04/28/17 04:15 04/27/17 04/28/17 04/29/17 05:59 05:59 05:59 Intake Total 3200 Balance 3200 - Physical Exam Constitutional: no apparent distress Eyes: PERRL Ears, Nose, Mouth, Throat: moist mucous membranes, hearing normal Cardiovascular: regular rate and rhythym Respiratory: no respiratory distress, reduced air movement (decreased BS right base), rhonchi Gastrointestinal: normoactive bowel sounds, soft, non-tender abdomen Skin: warm, normal color, other (acitinic lesion posterior scalp without signs of infection), No erythema, No induration Neurologic: AAOx3, CN II-XII Intact Psychiatric: interacting appropriately ICD10 Worksheet Patient Problems: Problems Problem Status Onset Acute respiratory failure with hypoxia Acute Edema Acute
[2017-04-28] MEDS: MULTIVITAMINS 1 EACH TAB PO SCH (08:55)
[2017-04-28] MEDS: ACYCLOVIR 400 MG TAB PO SCH ×2 (08:55→20:16)
[2017-04-28] MEDS: AMIODARONE HCL 200 MG TAB PO SCH (08:55)
[2017-04-28] MEDS: LR 1,000 ML IV SCH (09:04)
--- NOTE | 2017-04-28 13:12 | SOAPPROG ---
SOAP Progress Note Assessment/Plan: E&M for lymphoma * Stage IVB DLBCL: was admitted to receive 4th planned cycle of R-CHOP. [facility] [place] after 2 cycles. No reason to believe at this time the cancer has recurred. Will hold off starting until infection issue is clarified. * Fever with SIRS: etiology unclear; only on abx for about 12-18 hours; cultures still neg. If persists without etiology, agree with getting repeat CT especially to look at consolidation right lung and consider pulm consult for possible bronch. Recommend doing formal flu swab. Agree with current abx. * Pancytopenia: due to BM involvement of lymphoma and to chemotherapy; has needed G-CSF support and blood transfusions but not platelet txn. No transfusion needed today * H/O A.Fib: is suppose to f/u with cardiology outpatient. amiodarone was decrease per Dr. Boateng's rec. Subjective: Feels fine this morning. Had fever and chills yesterday. Had cough earlier this week but when I saw him on Sun. it resolved and no fever. He did not have fever when neutropenic but was on augmentin during that time. Objective: Vital Signs Temp Pulse Resp BP Pulse Ox 36.8 C 85 18 128/84 H 97 04/28/17 11:51 04/28/17 11:51 04/28/17 11:51 04/28/17 11:51 04/28/17 11:51 Microbiology 04/27/17 12:00 - Final Sputum, Expectorated Sputum Culture - Final 04/27/17 12:13 Respiratory Panel (PCR) - Final Nasal, Sinus - Swab No Organism Detected Laboratory Results 04/28/17 04:15 04/28/17 04:15 04/27/17 04/28/17 04/29/17 05:59 05:59 05:59 Intake Total 3200 Balance 3200 Laboratory Tests 04/27/17 04/28/17 12:30 04:15 WBC 3.63 L 2.48 L Hgb 8.6 L 7.6 L Plt Count 62 L 62 L Portable Chest, 12:06 History: Productive cough, fever Comparison: February 11, 2017, chest CT 04/07/2017 Impression: Chronic versus recurrent right lower lobe pneumonia and effusion. Dictated By: Hugo Arevalo MD Physical Exam - Physical Exam General Appearance: no apparent distress EENT: pharynx normal Respiratory: decreased breath sounds (right base) Cardiac/Chest: tachycardia Abdomen: non-tender, soft ICD10 Worksheet Patient Problems: Problems Problem Status Onset Acute respiratory failure with hypoxia Acute Edema Acute
[2017-04-28] MEDS ORDERED: FILGRASTIM-SNDZ 480 MCG/0.8 ML SYR SC SCH (18:00)
[2017-04-29] MEDS: ACETAMINOPHEN 325 MG TAB PO PRN ×3 (03:11→21:50)
[2017-04-29] MEDS: guaiFENesin 600 MG TAB.ER PO PRN (03:21)
[2017-04-29] MEDS: BENZONATATE 100 MG CAP PO PRN ×3 (03:21→21:50)
[2017-04-29] MEDS: VANCOMYCIN 1.25 GM in D5W 250 ML IV SCH ×2 (04:05→16:35)
[2017-04-29 04:40] LABS: PLATELET COUNT 61 10^3/uL (150-400)
[2017-04-29] MEDS: CEFEPIME HCL 2 GM in NS 100 ML IV SCH ×3 (06:27→20:55)
[2017-04-29] MEDS: MULTIVITAMINS 1 EACH TAB PO SCH (08:39)
[2017-04-29] MEDS: AMIODARONE HCL 200 MG TAB PO SCH (08:39)
[2017-04-29] MEDS: ACYCLOVIR 400 MG TAB PO SCH ×2 (08:39→20:55)
[2017-04-29] MEDS ORDERED: IOPAMIDOL (ISOVUE-300) 100 ML BTL ONE (10:43)
--- NOTE | 2017-04-29 12:55 | SOAPPROG ---
SOAP Progress Note Assessment/Plan: E&M for lymphoma * Stage IVB DLBCL: was admitted to receive 4th planned cycle of R-CHOP. [facility] after 2 cycles. With increasing lymph nodes and spleen, can't r/o progressive cancer. If confirmed, will need to change therapy probably to R- ICE. * Fever with SIRS: etiology unclear but not better with abx. Reviewed scan with Dr. Jose. Pleural fluid worse but not consolidation. Lymph nodes enlarged over last CT and spleen bigger. He is more concerned that the lymphoma may be growing. Cultures still neg. Resp panel and flu neg. Will ask ID to see, get CT of A/P, and tap pleural effusion. * Pancytopenia: due to BM involvement of lymphoma and chemotherapy; has needed G -CSF support and blood transfusions but not platelet txn. No transfusion needed today * H/O A.Fib: is suppose to f/u with cardiology outpatient. amiodarone was decrease per Dr. Boateng's rec. Spen >35 min with patient, physicians, and chart. Subjective: Had fever overnight with some night sweats. Feeling tired but no other complaints this morning. Objective: Vital Signs Temp Pulse Resp BP Pulse Ox 37.9 C 100 90 H 148/81 H 93 04/29/17 12:31 04/29/17 12:31 04/29/17 12:31 04/29/17 12:31 04/29/17 12:31 Microbiology 04/29/17 03:30 - Final Sputum, Expectorated Sputum Culture - Final 04/27/17 12:00 - Final Sputum, Expectorated Sputum Culture - Final Laboratory Results 04/29/17 04:20 04/29/17 03:00 04/28/17 04/29/17 04/30/17 05:59 05:59 05:59 Intake Total 3200 1450 550 Output Total 300 Balance [address] Chest With IV Contrast History: Consolidation right lower lobe with new fever. History of lymphoma. Comparison: 07 April 2017. Impression: 1. Atelectasis and opacification in the right lower lobe and right middle lobe. There could be a component of pneumonia. More focal nodular opacification anteriorly in the right middle lobe versus pulmonary nodule. Recommend follow-up. 2. Moderate right and minimal left pleural effusion. Mild atelectasis left lower lobe. 3. Increase in size in mediastinal and hilar lymph nodes, which could be reactive versus progression of patient's lymphoma. 4. Splenomegaly. Dictated By: Aleksey Jose MD Physical Exam - Physical Exam General Appearance: no apparent distress EENT: pharynx normal Respiratory: decreased breath sounds (right base) Cardiac/Chest: regular rate, rhythm Abdomen: normal bowel sounds, non-tender, soft Lymphatic: no adenopathy ICD10 Worksheet Patient Problems: Problems Problem Status Onset Acute respiratory failure with hypoxia Acute Edema Acute
--- NOTE | 2017-04-29 13:44 | HOSPPROG ---
Hospitalist Progress Note Assessment/Plan: #Sepsis: fevered again. CT shows effusion and LAD. Tap fluid, cont broad abx. Negative resp panel. -ID to evaluate #Diffuse B-cell lymphoma: was admitted for 4th CHOP cycle. On hold -concern for progression on CT. CT a/p pending -ppx acyclovir #Tachycardia: improved with fluids. #Fever: plan as above #H/o a fib: amiodarone #Lactic acidosis: resolved with IVFs #Chemo-related pancytopenia: transfuse if Hb<7 #Diet: regular #Disp: requires inpt admission for PNA treatment, IV abx. Cased discussed with Dr. Villagomez Subjective: still fevered overnight. Cough better with suppressants Objective: Vital Signs Temp Pulse Resp BP Pulse Ox 37.9 C 100 90 H 148/81 H 93 04/29/17 12:31 04/29/17 12:31 04/29/17 12:31 04/29/17 12:31 04/29/17 12:31 Microbiology 04/29/17 03:30 - Final Sputum, Expectorated Sputum Culture - Final 04/27/17 12:00 - Final Sputum, Expectorated Sputum Culture - Final Laboratory Results 04/29/17 04:20 04/29/17 03:00 04/28/17 04/29/17 04/30/17 05:59 05:59 05:59 Intake Total 3200 1450 550 Output Total 300 Balance 3200 1150 550 - Time Spent With Patient Time Spent with Patient: greater than 35 minutes Time Spent with Patient: Greater than 35 minutes spent on this patients care, greater than 50% of time spent counseling, educating, and coordinating care regarding the above mentioned plan. - Physical Exam Constitutional: no apparent distress Eyes: PERRL Ears, Nose, Mouth, Throat: moist mucous membranes Cardiovascular: regular rate and rhythym Respiratory: other (decreased breath both bases R>L. crackles right base) Gastrointestinal: normoactive bowel sounds Genitourinary: no bladder fullness, No yousif in urethra Skin: warm Musculoskeletal: full muscle strength Neurologic: AAOx3 Psychiatric: interacting appropriately ICD10 Worksheet Patient Problems: Problems Problem Status Onset Acute respiratory failure with hypoxia Acute Edema Acute
--- NOTE | 2017-04-29 18:38 | GCON ---
[f rep st] CONSULTATION INFECTIOUS DISEASE CONSULTATION DATE OF CONSULTATION: 04/29/2017 REFERRING PHYSICIAN: Diane Villagomez MD REASON FOR CONSULTATION: Persistent fever in an immunosuppressed host. HISTORY OF PRESENT ILLNESS: The patient is a 72-year-old male with a past medical history of B-cell lymphoma, undergoing chemotherapy with R-CHOP, who was originally admitted on 04/27/2017 in [facility] of his 4th cycle of chemotherapy. However, upon admission, he noted that he had had several days of low-grade fever, peaking around 101, prior to admission. On the day of admission, he had develop ed rigors on his way to the hospital. His chemotherapy was therefore delayed and he has had subseque nt evaluation. He has been treated empirically since the time of admission with vancomycin and cefep karly. Temperatures have persisted despite his antibiotic therapy, with temperatures sporadically in t he 38 to 39 degree range. The patient does note that he has had a cough with clear sputum production . He does not complain of shortness of breath. He does describe being exposed to an ill contact whe n he had a doctor's followup appointment approximately 10 days prior to onset of symptoms. No recent travel. No animal exposures. The patient's evaluation has included influenza swabs, which have bee n negative by PCR, as has a respiratory panel by PCR. Blood cultures were ordered on 04/27/2017, but were canceled. No blood cultures are therefore available for review. Yesterday, the patient underw ent CT scan of the chest, which showed findings consistent with atelectasis/opacification in the righ t lower lobe and right middle lobe, with a moderate right side pleural effusion; mediastinal and sybil r lymphadenopathy was noted to be increasing in size versus prior CT scan in March. Spleen was al so noted to be enlarged. He is scheduled to have thoracentesis performed for further evaluation cathyeze ridley. He has not experienced nausea, vomiting, or diarrhea. No urinary tract symptoms. No skin amy h. He has not been neutropenic. Given the above findings, I am now asked to assist in his ongoing m anagement. PAST MEDICAL HISTORY: B-cell lymphoma as above, atrial fibrillation, skin cancer of the scalp, hyper tension. PAST SURGICAL HISTORY: Port placement. CURRENT MEDICATIONS: Vancomycin 1.25 g IV q.12 hours, cefepime 2 g IV q.8 hours, acyclovir 400 mg or ally twice daily, amiodarone 200 mg p.o. daily, Tessalon Perles 100 mg p.o. t.i.d. as needed, Mucinex 600 mg p.o. b.i.d. as needed, multivitamin p.o. daily. ALLERGIES: No known drug allergies. SOCIAL HISTORY: Patient does not smoke. He used to drink alcohol, but has not been drinking since h is diagnosis of lymphoma. No drug use. Was originally born in [place], and has lived in [place] hi s entire life. FAMILY HISTORY: Father with Parkinson disease, dementia, and throat cancer. REVIEW OF SYSTEMS: Outside that noted in the HPI, the remainder of 10 system review is unremarkable other than no pain or redness around port site. PHYSICAL EXAMINATION: VITAL SIGNS: Temperature maximum 38.8, temperature current 37.4, heart rate 8 8, respiratory rate 20, oxygen saturation 91% on room air, blood pressure 125/76. GENERAL: The iftikhar ent is an obese male, in no acute distress. He appears nontoxic. He has intermittent dry cough. HE ENT: There is no scleral icterus, conjunctival injection, or conjunctival petechiae. Oropharynx ronald ws moist mucous membranes with only 2 teeth remaining. There is no nasal discharge. There is no ten derness over the frontal, maxillary, or mastoid area. NECK: Supple without palpable lymphadenopathy or thyromegaly. CHEST: There are decreased breath sounds at the right base with associated bronchi al breath sounds above the area of decreased breath sounds. There is no egophony. Port is present i n the right upper chest, with no erythema or tenderness. Respiratory effort is normal. CARDIOVASCUL AR: Regular rate and rhythm without murmurs, gallops, or rubs. ABDOMEN: Soft, nontender, nondisten ded. There is no palpable organomegaly. A ventral hernia is present. MUSCULOSKELETAL: There is 1 to 2+ lower extremity edema bilaterally. There is no cyanosis or clubbing. SKIN: No rashes present . There is a skin cancer which is nodular in shape with lichenification/keratinization over the scal p. No stigmata of endocarditis. Skin is warm and dry to touch. NEUROLOGIC: Patient is alert and i nteracts appropriately with examiner. Cranial nerves 2-12 are grossly intact. Muscle tone and bulk are normal. LYMPHATICS: No cervical or supraclavicular nodes palpable. LABORATORY DATA: White blood cell count 4.3, hematocrit 21.9, platelets 61, neutrophils 45%, lymphoc ytes 31%, absolute neutrophil count 1910. Serum creatinine 0.7, AST 14, ALT 18, bilirubin 1.0, alkal ine phosphatase 79, albumin 2.8, procalcitonin is 0.43. Urinalysis shows 3-5 white blood cells and 1 -3 red blood cells. Vancomycin trough 7.1. Urine Legionella and Streptococcus pneumoniae antigens a re pending. CT of chest as outlined above, which was reviewed and interpreted by me today with [facility]. IMPRESSION: 1. Fever with right-sided pleural effusion and adjacent infiltrate/atelectasis: CT findings are mos t suggestive of compressive atelectasis adjacent to pleural effusion rather than focal pneumonia. Th e patient is immunosuppressed and at risk for opportunistic processes, however. There is no active n eutropenia present. Given the increasing size of lymphadenopathy in the chest, recurrent lymphoma is a consideration for etiology of symptomatology. Blood cultures were canceled, which do not allow fo r further assessment for bacteremia, and repeat blood cultures will be obtained, although may be of l ower utility given prior antibiotic exposure. Further assessment of pulmonary infiltrate post thorac entesis may be of utility to determine if bronchoscopy is also necessary to further define possible e tiology for patient's fever. RECOMMENDATIONS: 1. Agree with empiric vancomycin and cefepime. 2. Blood cultures x2 sets. 3. Await urine Streptococcus pneumoniae and Legionella antigens. 4. Agree with plans for thoracentesis. 5. Followup chest x-ray post thoracentesis to determine if any residual pulmonary infiltrate is pres ent. If patient has persistent infiltrate post thoracentesis, may require bronchoscopy/pulmonary con sultation. \. 6. Check serum Aspergillus antigen. Thank you for this consultation. We will continue to follow the patient with you. /[id number]/MODL
[2017-04-29] MEDS: LR 1,000 ML IV SCH (21:00)
[2017-04-30] MEDS: VANCOMYCIN 1.25 GM in D5W 250 ML IV SCH ×2 (03:45→17:05)
[2017-04-30] MEDS: BENZONATATE 100 MG CAP PO PRN ×4 (03:56→21:40)
[2017-04-30] MEDS: CEFEPIME HCL 2 GM in NS 100 ML IV SCH ×2 (04:52→13:58)
[2017-04-30 05:15] LABS: PLATELET COUNT 54 10^3/uL (150-400)
[2017-04-30] MEDS: ACYCLOVIR 400 MG TAB PO SCH ×2 (08:28→20:56)
[2017-04-30] MEDS: AMIODARONE HCL 200 MG TAB PO SCH (08:28)
[2017-04-30] MEDS: MULTIVITAMINS 1 EACH TAB PO SCH (08:29)
[2017-04-30] MEDS: guaiFENesin 600 MG TAB.ER PO PRN ×2 (08:32→20:56)
[2017-04-30] MEDS: ACETAMINOPHEN 325 MG TAB PO PRN ×2 (08:32→20:58)
[2017-04-30 09:06] LABS: INR 1.32 (0.83-1.16); PROTIME(PATIENT) 16.6 SEC (12.0-15.0)
[2017-04-30] MEDS ORDERED: POTASSIUM CL 20 MEQ TAB PO ONE (11:08)
--- NOTE | 2017-04-30 13:46 | HOSPPROG ---
Hospitalist Progress Note Assessment/Plan: #Sepsis: resolved. No fever overnight. CT shows effusion and LAD. Thoracentesis today.Negative resp panel. #Diffuse B-cell lymphoma: was admitted for 4th CHOP cycle. On hold -concern for progression on CT. CT a/p pending -ppx acyclovir #Tachycardia: improved with fluids. #Hypokalemia: replete #Fever: plan as above #H/o a fib: amiodarone #Lactic acidosis: resolved with IVFs #Chemo-related pancytopenia: transfuse if Hb<7 #Diet: regular #Disp: requires inpt admission for PNA treatment, IV abx. Cased discussed with Dr. Villagomez Subjective: no fevers overnight. Dry cough Objective: Vital Signs Temp Pulse Resp BP Pulse Ox 36.9 C 103 H 14 130/74 H 95 04/30/17 12:35 04/30/17 08:56 04/30/17 08:56 04/30/17 09:50 04/30/17 08:56 Microbiology 04/29/17 03:30 - Final Sputum, Expectorated Sputum Culture - Final Laboratory Results 04/30/17 04:00 04/30/17 03:40 04/29/17 04/30/17 05/01/17 05:59 05:59 05:59 Intake Total 1450 4325 Output Total 300 1 Balance 1150 4324 PT 16.6 SEC (12.0-15.0) H 04/30/17 08:37 INR 1.32 (0.83-1.16) H 04/30/17 08:37 - Physical Exam Constitutional: no apparent distress, other (pale) Eyes: PERRL Ears, Nose, Mouth, Throat: moist mucous membranes Cardiovascular: regular rate and rhythym, no murmur, rub, or gallop Respiratory: no respiratory distress, no rales or rhonchi, reduced air movement Gastrointestinal: normoactive bowel sounds, soft, non-tender abdomen Genitourinary: No yousif in urethra Skin: warm, other Neurologic: AAOx3 ICD10 Worksheet Patient Problems: Problems Problem Status Onset Acute respiratory failure with hypoxia Acute Edema Acute
--- NOTE | 2017-04-30 13:53 | SOAPPROG ---
SOAP Progress Note Assessment/Plan: Assessment: 1.) Diffuse Large Cell B Cell Lymphoma, CD20 +, having shown response to three cycles of R-CHOP chemotherapy. 2.) possible Lymphoma progression- Thoracentesis and CT abd/pelvis to assess today. 3.) Fever- on empiric Vanco/Cefipime. Appreciate ID input. 4.) Hx. of atrial fibrillation 5.) COPD 6.) Anemia/Thrombocytopenia secondary to lymphoma/its TX. Plan: 1.) Thoracentesis today for standard studies and cytology and flow cytometry to look for lymphoma involvement of pleural effusion. 2.) CT abd/pelvis to assess for evidence of response to R-CHOP vs. evidence for progression, with need to change regimen, in that case. Hopefully, we can review CT imaging and Pleural fluid cytology and flow cytometry to assess status of lymphoma as to continue first line Tx. vs. Change to second line Tx if evidence for progression. 04/30/17 13:52 Subjective: Resting in bedside chair and feels relatively well. No new sx. Objective: VSS, afebrile - as noted here. Pt. in bedside chair and in good spirits, in NAD HEENT- large scalp lesion on Left occipital surface, looks like Scalp Sq. Cell cancer, poor dentition, no oral lesions, anicteric Neck- supple Chest- clear CVS- RSR, no extra HS ABD- BS+ soft, NT no mass or hepatomegaly EXT- 1 + leg edema/symmetric Labs as noted here: Hgb 8.3, PLT 54, WBC 5.62 Vital Signs Temp Pulse Resp BP Pulse Ox 36.9 C 103 H 14 130/74 H 95 04/30/17 12:35 04/30/17 08:56 04/30/17 08:56 04/30/17 09:50 04/30/17 08:56 Microbiology 04/29/17 03:30 - Final Sputum, Expectorated Sputum Culture - Final Laboratory Results 04/30/17 04:00 04/30/17 03:40 04/29/17 04/30/17 05/01/17 05:59 05:59 05:59 Intake Total 1450 4325 Output Total 300 1 Balance 1150 4324 PT 16.6 SEC (12.0-15.0) H 04/30/17 08:37 INR 1.32 (0.83-1.16) H 04/30/17 08:37 ICD10 Worksheet Patient Problems: Problems Problem Status Onset Acute respiratory failure with hypoxia Acute Edema Acute
[2017-04-30] MEDS ORDERED: IOPAMIDOL (ISOVUE-300) 100 ML BTL ONE (14:34)
[2017-04-30] MEDS ORDERED: LIDOCAINE 1% 300 MG/30 ML SDV ONE (14:50)
--- NOTE | 2017-04-30 15:55 | ASMTCMCOM ---
CM Note CM Note Notes: Attempted to meet with patient on two occasions not available--not in room. Thoracentesis scheduled today. Case Management will continue to follow for any discharge needs. Date Signed: 04/30/2017 03:55 PM Electronically Signed By:Mary Neff RN
--- NOTE | 2017-04-30 19:46 | PCMIDPN ---
Assessment/Plan: Assessment/Plan: * Fever with right-sided pleural effusion: Pleural fluid showing lymphocyte predominance. Chest x-ray improved post thoracentesis suggesting atelectasis associated with pleural fluid. CT of abdomen and pelvis shows increasing intra- abdominal lymphadenopathy concerning for progressive lymphoma. Suspect fever may be related to lymphoma rather than acute infectious etiology. Will therefore discontinue vancomycin and cefepime. Follow up blood cultures as available. Await additional input from Oncology regarding increasing lymphadenopathy and chemotherapy plans. 04/30/17 19:43 Subjective: Patient with mild cough after thoracentesis. Objective: Vital Signs Temp Pulse Resp BP Pulse Ox 37.4 C 105 H 17 130/74 H 91 L 04/30/17 16:45 04/30/17 16:45 04/30/17 16:45 04/30/17 16:45 04/30/17 16:45 Microbiology 04/28/17 14:45 Urine Culture - Final Urine,Clean Catch Laboratory Results 04/30/17 04:00 04/30/17 03:40 04/29/17 04/30/17 05/01/17 05:59 05:59 05:59 Intake Total 1450 4325 2489 Output Total 300 1 Balance 1150 4324 2489 Vancomycin # 3 Cefepime # 3 Blood cultures x2 pending Laboratory Tests 04/30/17 15:50 Pleural WBC 1465 Pleural RBC 5793 Pleural Lymphocytes % 91 Pleural LDH 423 Pleural fluid Gram stain and cultures pending CT abdomen and pelvis showing increase in size of retroperitoneal adenopathy with presence of mesenteric adenopathy as well - Physical Exam General Appearance: alert, no apparent distress, non-toxic EENT: No scleral icterus, No thrush Respiratory: crackles (Right base), No respiratory distress Cardiac/Chest: tachycardia Abdomen: non-tender ICD10 Worksheet Patient Problems: Problems Problem Status Onset Acute respiratory failure with hypoxia Acute Edema Acute
[2017-05-01 06:03] LABS: PLATELET COUNT 62 10^3/uL (150-400)
[2017-05-01] MEDS: BENZONATATE 100 MG CAP PO PRN ×2 (06:11→20:06)
[2017-05-01] MEDS: ACETAMINOPHEN 325 MG TAB PO PRN ×2 (06:11→20:06)
[2017-05-01] MEDS: ACYCLOVIR 400 MG TAB PO SCH ×2 (08:34→20:06)
[2017-05-01] MEDS: MULTIVITAMINS 1 EACH TAB PO SCH (08:34)
[2017-05-01] MEDS: AMIODARONE HCL 200 MG TAB PO SCH (08:34)
--- NOTE | 2017-05-01 12:18 | SOAPPROG ---
SOAP Progress Note Assessment/Plan: Assessment: 1.) Diffuse Large Cell B Cell Lymphoma, CD20 +, having shown response to three cycles of R-CHOP chemotherapy. 2.) Concern for Lymphoma progression- Thoracentesis and CT abd/pelvis shows increase in intra-abdominal disease, and awaiting pleural fluid studies. 3.) Fever- remains afebrile off ABX as of this AM. Appreciate ID management. . 4.) Hx. of atrial fibrillation 5.) COPD 6.) Anemia/Thrombocytopenia secondary to lymphoma/its TX. Plan: 1.) Will check with Pathology as to pleural fluid findings this afternoon. 2.) I have reviewed CT findings with Dr. Villagomez- who is his primary oncologist. Dr. Villagomez will review options, rohan. in light of degree of Thrombocytopenia. 3.) Follow labs + VS + Sx. off antibiotics, while deciding if pt. to continue w / or start new systemic Tx for his Diffuse Large Cell Lymphoma. 05/01/17 12:18 Subjective: Feeling considerable better today No new c/o and feels well w/o antibotic coverage Had post-thoracentesis coughing last night- resolved now. Objective: VSS, afebrile as noted here sitting upright in bedside chair with lunch. Family @ bedside. Looks well and in good spirits. HEENT- anicteric, no oral lesions, no change in large Left occipital region protrusion, which is intact and non-ulcerated Neck- supple Chest- clear bilaterally CVS- RSR, no extra HS ABD- soft, BS+, NT EXT- minimal LE edema. No petechiae Data: PLT 62, Hgb 7.7 K 3.1 Pleural fluid cytology and flow cytometry not yet available. Cell count and pH 7.[address] scan shows increase in size of Spleen and increase in RPLN size. Vital Signs Temp Pulse Resp BP Pulse Ox 36.6 C 90 17 105/63 97 05/01/17 11:28 05/01/17 11:28 05/01/17 11:28 05/01/17 11:28 05/01/17 11:28 Microbiology 04/30/17 15:50 Gram Stain - Final Thoracic Fluid - Aspirate 04/28/17 14:45 Urine Culture - Final Urine,Clean Catch Laboratory Results 05/01/17 05:45 05/01/17 05:45 0105/01/17 05/02/17 05:59 05:59 05:59 Intake Total 4325 3089 Output Total 1 300 Balance 4324 2789 PT 16.6 SEC (12.0-15.0) H 04/30/17 08:37 INR 1.32 (0.83-1.16) H 04/30/17 08:37 ICD10 Worksheet Patient Problems: Problems Problem Status Onset Acute respiratory failure with hypoxia Acute Edema Acute
--- NOTE | 2017-05-01 12:57 | HOSPPROG ---
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 Cabrera Tran today SUBJECTIVE: Feels well today, no shortness chest pain or other discomforts no nausea Did upon awakening around 8 o'clock this morning a few hours after his fever Eating okay OBJECTIVE Vitals reviewed: T-max 38.2 degrees this morning, stable vitals otherwise Exam: alert oriented skin warm dry color ok resps not labored lungs clear BSs heart regular abd soft nondistended nontender, bowel sounds present limbs warm, no edema iv site ok Laboratory data: Stable white red and platelet cell counts Potassium remains low otherwise stable chemistry I reviewed yesterday's chest x-ray image, some right lower lobe atelectasis and/ or infiltrate present which has been seen on prior chest x-ray images including the first study during this admission, and I doubt this is reflecting a acute pneumonia Objective: Vital Signs Temp Pulse Resp BP Pulse Ox 36.6 C 90 17 105/63 97 05/01/17 11:28 05/01/17 11:28 05/01/17 11:28 05/01/17 11:28 05/01/17 11:28 Microbiology 04/30/17 15:50 Gram Stain - Final Thoracic Fluid - Aspirate 04/28/17 14:45 Urine Culture - Final Urine,Clean Catch Laboratory Results 05/01/17 05:45 05/01/17 05:45 04/30/17 05/01/17 05/02/17 06:59 06:59 06:59 Intake Total 3775 3089 Output Total 1 300 Balance 3774 2789 PT 16.6 SEC (12.0-15.0) H 04/30/17 08:37 INR 1.32 (0.83-1.16) H 04/30/17 08:37 ICD10 Worksheet Patient Problems: Problems Problem Status Onset Acute respiratory failure with hypoxia Acute Edema Acute
--- NOTE | 2017-05-01 15:28 | ASMTCMCOM ---
CM Note CM Note Notes: Pt off IV ABX, per ID, and s/p thoracentesis. Pt and his have refused home care and SNF in the past. Anticipate d/c with no CM needs unless cultures indicate need for IV ABX. Date Signed: 05/01/2017 03:28 PM Electronically Signed By:GLYNN Watt
[2017-05-01] MEDS ORDERED: POTASSIUM CL 20 MEQ TAB PO ONE ×2 (16:45→17:15)
[2017-05-02] MEDS: BENZONATATE 100 MG CAP PO PRN (05:02)
[2017-05-02 05:11] LABS: PLATELET COUNT 55 10^3/uL (150-400)
[2017-05-02] MEDS: MULTIVITAMINS 1 EACH TAB PO SCH (09:16)
[2017-05-02] MEDS: AMIODARONE HCL 200 MG TAB PO SCH (09:16)
[2017-05-02] MEDS: ACYCLOVIR 400 MG TAB PO SCH ×2 (09:16→21:15)
--- NOTE | 2017-05-02 12:56 | SOAPPROG ---
SOAP Progress Note Assessment/Plan: Assessment: 1.) Diffuse Large Cell B Cell Lymphoma, CD20 +, having shown response to three cycles of R-CHOP chemotherapy. 2.) Concern for Lymphoma progression- Thoracentesis and CT abd/pelvis shows increase in intra-abdominal disease, and awaiting pleural fluid studies. 3.) Fever- remains afebrile off ABX as of this AM. Appreciate ID management. . 4.) Hx. of atrial fibrillation 5.) COPD 6.) Anemia/Thrombocytopenia secondary to lymphoma/its TX. Plan: 1.) Will check with Pathology as to pleural fluid findings this afternoon. 2.) I have reviewed CT findings with Dr. Villagomez- who is his primary oncologist. Dr. Villagomez will review options, rohan. in light of degree of Thrombocytopenia. 3.) Follow labs + VS + Sx. off antibiotics, while deciding if pt. to continue w / or start new systemic Tx for his Diffuse Large Cell Lymphoma. 4.) Anticipate second line tx. of Lymphoma with decision/discussion from Dr. Villagomez. 05/02/17 12:56 Subjective: Having no new symptoms over past 24 hours. Reports no pain/resp. sx, or GI distress Objective: in NAD, alert and conversant VSS Afebrile as noted here: HEENT- anicteric, no oral thrush Neck- supple Chest- hyperinflated CVS- RSR, no extra HS, Mediport- NT EXT- no edema. Skin intact, without ecchymoses. Labs as noted here: PLT 55, HGB 7.1 today. K+ 3.2 Pleural fluid cytology and Pleural fluid flow cytometry still not finalized. Vital Signs Temp Pulse Resp BP Pulse Ox 37.2 C 89 20 135/90 H 97 05/02/17 08:58 05/02/17 08:58 05/02/17 08:58 05/02/17 08:58 05/02/17 08:58 Microbiology 04/30/17 15:50 Gram Stain - Final Thoracic Fluid - Aspirate 04/29/17 15:50 Mycobacterial Smear (MAXIM) - Final Pleural Fluid - Aspirate Laboratory Results 05/02/17 05:00 05/02/17 05:00 05/01/17 05/02/17 05/03/17 05:59 05:59 05:59 Intake Total 3089 500 250 Output Total 300 Balance 2789 500 250 PT 16.6 SEC (12.0-15.0) H 04/30/17 08:37 INR 1.32 (0.83-1.16) H 04/30/17 08:37 ICD10 Worksheet Patient Problems: Problems Problem Status Onset Acute respiratory failure with hypoxia Acute Edema Acute
--- NOTE | 2017-05-02 16:58 | HOSPPROG ---
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 There is no sign of other acute illness beyond recurrent lymphoma. We are waiting to hear from them oncology s service in terms of recommendations regarding further therapy. Is unclear to me at this time if the patient will require further testing before beginning therapy, or whether he will begin therapy here in the hospital or be discharged home and follow up in the Oncology Clinic before beginning therapy. His anemia is becoming may more severe and he may require transfusion PLANS: -continue to monitor off abx -will get repeat culture samples for any further fever -follow blood counts closely, transfusions as indicated by numbers in clinical condition -repeat hemoglobin in morning and if either hemoglobin is lower or he starts having more symptoms from the anemia will transfuse red blood cells, will review with Dr. Moses SUBJECTIVE: Feels well today, no shortness chest pain or other discomforts no nausea Did upon awakening around 8 o'clock this morning a few hours after his fever Eating okay OBJECTIVE Vitals reviewed: Afebrile without abnormalities of vital signs otherwise Exam: alert oriented skin warm dry color ok resps not labored lungs clear BSs heart regular abd soft nondistended nontender, bowel sounds present limbs warm, no edema iv site ok Laboratory data: Stable white red and platelet cell counts Potassium remains low otherwise stable chemistry Objective: Vital Signs Temp Pulse Resp BP Pulse Ox 37.0 C 87 18 120/65 96 05/02/17 13:05 05/02/17 13:05 05/02/17 13:05 05/02/17 13:05 05/02/17 13:05 Microbiology 04/30/17 15:50 Gram Stain - Final Thoracic Fluid - Aspirate 04/29/17 15:50 Mycobacterial Smear (MAXIM) - Final Pleural Fluid - Aspirate Laboratory Results 05/02/17 05:00 05/02/17 05:00 05/01/17 05/02/17 05/03/17 06:59 06:59 06:59 Intake Total 3089 750 Output Total 300 Balance 2789 750 PT 16.6 SEC (12.0-15.0) H 04/30/17 08:37 INR 1.32 (0.83-1.16) H 04/30/17 08:37 ICD10 Worksheet Patient Problems: Problems Problem Status Onset Acute respiratory failure with hypoxia Acute Edema Acute
[2017-05-02] MEDS ORDERED: NS 500 ML IV PRN (17:47)
[2017-05-02] MEDS ORDERED: ACETAMINOPHEN 325 MG TAB PO PRN (17:47)
[2017-05-02] MEDS ORDERED: HYDROCORTISONE 100 MG/2 ML VIAL IVP PRN (17:47)
[2017-05-02] MEDS ORDERED: NS 1,000 ML IV PRN (17:47)
[2017-05-02] MEDS ORDERED: MEPERIDINE 25 MG/ML SYR IVP PRN (17:47)
[2017-05-02] MEDS ORDERED: DEXAMETHASONE 10 MG/ML VIAL IVP PRN (17:47)
[2017-05-02] MEDS ORDERED: diphenhydrAMINE 25 MG CAP PO ONE (21:30)
[2017-05-02] MEDS ORDERED: ACETAMINOPHEN 325 MG TAB PO ONE (21:30)
[2017-05-02] MEDS ORDERED: riTUXimab 700 MG in NS 630 ML IV ONE (22:00)
[2017-05-03] MEDS: ACETAMINOPHEN 325 MG TAB PO PRN ×2 (03:18→14:28)
[2017-05-03] MEDS: BENZONATATE 100 MG CAP PO PRN ×2 (03:20→11:18)
[2017-05-03 07:11] LABS: PLATELET COUNT 53 10^3/uL (150-400)
[2017-05-03] MEDS: AMIODARONE HCL 200 MG TAB PO SCH (08:23)
[2017-05-03] MEDS: MULTIVITAMINS 1 EACH TAB PO SCH (08:23)
[2017-05-03] MEDS: ACYCLOVIR 400 MG TAB PO SCH ×2 (08:23→21:54)
--- NOTE | 2017-05-03 11:20 | SOAPPROG ---
SOAP Progress Note Assessment/Plan: Assessment: 1.) Diffuse Large Cell B Cell Lymphoma, CD20 +, having shown response to three cycles of R-CHOP chemotherapy. 2.) Documented Lymphoma progression- Thoracentesis and CT abd/pelvis shows increase in intra-abdominal disease, and awaiting pleural fluid studies. 3.) Hx. of atrial fibrillation 4.) COPD 5.) Anemia/Thrombocytopenia secondary to lymphoma/its TX. 6.) Second line Tx plan for DLCBL , having progressed while on R-CHOP: as discussed with Luther Villagomez MD- patient's primary Oncologist in our group, pt. has been offered and will receive Rituxan+ Cisplatin 75 mg/M2 today + Gemz. 1000 mg/M2 today + Dex 40 mg IV or po QD x 4 days. See orders. Plan: 1.) Cisplatin + Gemcitabine + Dexamethasone IV today. Dex IV/po a total of 4 days. Received Rituxan last evening. 2.) Anti-emetic support. 3.) Follow labs + VS + Sx. 4.) IVF hydration following Tx today with IVF at 75-100 mL/Hour. 05/03/17 11:15 Subjective: Had Rituxan last PM without complications of infusion. No new sx. this AM. Objective: Afebrile, VSS as noted here HEENT- anicteric, no oral lesions. Left posterior scalp lesion- no change. Neck- supple Chest- clear Mediport- accessed/NT CVS- RSR, no extra HS ABD- soft, NT no mass or HSM, BS+ EXT- no edema, skin intact Labs as noted here: BUN/Cr 6/0.7, PLT 53 Vital Signs Temp Pulse Resp BP Pulse Ox 36.6 C 79 20 125/91 H 95 05/03/17 08:00 05/03/17 08:00 05/03/17 08:00 05/03/17 08:00 05/03/17 08:00 Microbiology 04/30/17 15:50 Gram Stain - Final Thoracic Fluid - Aspirate Body Fluid Culture - Final 04/29/17 15:50 Mycobacterial Smear (MAXIM) - Final Pleural Fluid - Aspirate Laboratory Results 05/03/17 06:59 05/03/17 06:59 05/02/17 05/03/17 05/04/17 05:59 05:59 05:59 Intake Total 500 2750 Balance 500 2750 PT 16.6 SEC (12.0-15.0) H 04/30/17 08:37 INR 1.32 (0.83-1.16) H 04/30/17 08:37 ICD10 Worksheet Patient Problems: Problems Problem Status Onset Acute respiratory failure with hypoxia Acute Edema Acute
[2017-05-03] MEDS ORDERED: FAMOTIDINE 20 MG/NACL 50 ML IV ONE (11:30)
[2017-05-03] MEDS ORDERED: LORazepam 2 MG/ML INJ IVP ONE ×2 (11:30→14:30)
[2017-05-03] MEDS ORDERED: PALONOSETRON HCL 0.25 MG/5 ML VIAL IVP ONE (11:30)
[2017-05-03] MEDS ORDERED: FOSAPREPITANT 150 MG in D5W 250 ML IV ONE (11:30)
[2017-05-03] MEDS ORDERED: NS IV ONE ×2 (12:30→14:30)
[2017-05-03] MEDS ORDERED: CISPLATIN IV ONE (12:30)
[2017-05-03] MEDS: NS IV SCH (13:22)
[2017-05-03] MEDS: DEXAMETHASONE SOD PHOSPHATE IV SCH (13:22)
[2017-05-03] MEDS ORDERED: GEMCITABINE HCL IV ONE (14:30)
--- NOTE | 2017-05-03 14:58 | ASMTCMCOM ---
CM Note CM Note Notes: Pt started new chemo regime last night and will continue through today. Pt denies having any DC needs at this time. DC in next few days likely. Date Signed: 05/03/2017 02:58 PM Electronically Signed By:Lynette Mueller LCSW
--- NOTE | 2017-05-03 16:50 | HOSPPROG ---
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 Cabrera Tran PLANS: -continue to monitor off abx -has now started therapy for his disease, with Rituxan and Cisplatin + Gemcitabine + Dexamethasone -follow blood counts closely, transfusions as indicated by numbers in clinical condition -potassium replacement; continue to monitor her renal function electrolytes in uric acid in for other side effects of medications SUBJECTIVE: Feels sleepy but otherwise well today. Slept very poorly due to monitoring for Rituxan which started late last night No fever symptoms no new symptoms otherwise. His respiratory symptoms are unchanged OBJECTIVE Vitals reviewed: Afebrile without abnormalities of vital signs otherwise Exam: alert oriented skin warm dry color ok resps not labored lungs clear BSs heart regular abd soft nondistended nontender, bowel sounds present limbs warm, no edema iv site ok Laboratory data: Stable white red and platelet cell counts Potassium slightly low otherwise stable chemistry Objective: Vital Signs Temp Pulse Resp BP Pulse Ox 36.7 C 88 24 H 146/70 H 92 05/03/17 14:47 05/03/17 14:47 05/03/17 14:47 05/03/17 14:47 05/03/17 14:47 Microbiology 04/30/17 15:50 Gram Stain - Final Thoracic Fluid - Aspirate Body Fluid Culture - Final 04/29/17 15:50 Mycobacterial Smear (MAXIM) - Final Pleural Fluid - Aspirate Laboratory Results 05/03/17 06:59 05/03/17 06:59 05/02/17 05/03/17 05/04/17 06:59 06:59 06:59 Intake Total 750 2500 Balance 750 2500 PT 16.6 SEC (12.0-15.0) H 04/30/17 08:37 INR 1.32 (0.83-1.16) H 04/30/17 08:37 ICD10 Worksheet Patient Problems: Problems Problem Status Onset Acute respiratory failure with hypoxia Acute Edema Acute
[2017-05-03] MEDS: NS 1,000 ML IV SCH (22:33)
[2017-05-04 05:40] LABS: PLATELET COUNT 61 10^3/uL (150-400)
[2017-05-04] MEDS: NS 1,000 ML IV SCH (08:46)
[2017-05-04] MEDS: AMIODARONE HCL 200 MG TAB PO SCH (08:47)
[2017-05-04] MEDS: BENZONATATE 100 MG CAP PO PRN (08:47)
[2017-05-04] MEDS: MULTIVITAMINS 1 EACH TAB PO SCH (08:47)
[2017-05-04] MEDS: ACYCLOVIR 400 MG TAB PO SCH (08:47)
[2017-05-04 11:13] VITALS: BP 135/79; PULSE 75; RESP 15; TEMP 98; O2SAT 100
--- NOTE | 2017-05-04 13:55 | SOAPPROG ---
SOAP Progress Note Assessment/Plan: Assessment: 1.) Diffuse Large Cell B Cell Lymphoma, CD20 +, having shown response to three cycles of R-CHOP chemotherapy. 2.) Documented Lymphoma progression- Thoracentesis and CT abd/pelvis shows increase in intra-abdominal disease, and awaiting pleural fluid studies. 3.) Hx. of atrial fibrillation 4.) COPD 5.) Anemia/Thrombocytopenia secondary to lymphoma/its TX. 6.) Second line Tx plan for DLCBL , having progressed while on R-CHOP: as discussed with Luther Villagomez MD- patient's primary Oncologist in our group, pt. did receive Rituxan+ Cisplatin 75 mg/M2 today + Gemz. 1000 mg/M2 05/03/17 + Dex 40 mg IV or po QD x 4 days. See orders. Plan: 1.) Cisplatin + Gemcitabine + Dexamethasone IV today. Dex IV/po a total of 4 days. Received Rituxan last evening. 2.) Anti-emetic support. 3.) Follow labs + VS + Sx. 4.) IVF hydration following Tx today with IVF at 75-100 mL/Hour. 5.) Discharge on 05/04. 6.) Follow up at [facility] arranged with Dr. Villagomez today. 05/04/17 13:55 Subjective: Feels well today, without adverse effects from his tx yesterday. No N/V Objective: Pt in good spirits, with family member @ bedside VSS, Afebrile as noted here HEENT- anicteric, no oral lesions Neck- supple Chest- clear CVS- RSR, no extra HS ABD- soft, NT, BS+ EXT- no edema or petchiae Labs as noted here: Hgb 8.0 PLT 61 WBC 4.89 BUn/Cr 16.0.6 Vital Signs Temp Pulse Resp BP Pulse Ox 36.6 C 75 15 135/79 H 100 05/04/17 11:13 05/04/17 11:13 05/04/17 11:13 05/04/17 11:13 05/04/17 11:13 Microbiology 04/30/17 15:50 Gram Stain - Final Thoracic Fluid - Aspirate Body Fluid Culture - Final 04/29/17 15:50 Mycobacterial Smear (MAXIM) - Final Pleural Fluid - Aspirate Laboratory Results 05/04/17 05:25 05/04/17 05:25 05/03/17 05/04/17 05/05/17 05:59 05:59 05:59 Intake Total 2750 1999 1150 Balance 2750 1999 1150 PT 16.6 SEC (12.0-15.0) H 04/30/17 08:37 INR 1.32 (0.83-1.16) H 04/30/17 08:37 ICD10 Worksheet Patient Problems: Problems Problem Status Onset Acute respiratory failure with hypoxia Acute Edema Acute
[2017-05-04] MEDS: DEXAMETHASONE SOD PHOSPHATE IV SCH (14:57)
[2017-05-04] MEDS: NS IV SCH (14:57)
--- NOTE | 2017-05-04 16:05 | ASDISCHSUM ---
Discharge Information Plan Status: Medically Cleared to Leave: Discharge Date: CM D/C Disposition: ADT D/C Disposition:Home, Routine, Self-Care Projected Discharge Date: Transportation at D/C: Discharge Delay Reason: Follow-Up Date: Discharge Slot: Final Diagnosis: Placement Information Patient Contact Information Contact Name:BARBARA Relationship: Address:[address] [place] [address] [facility] Work Phone: City:[place] Phone: State/Zip Code:[place] [address] Email: Financial Information Financial Class: Primary Plan Desc:MEDICARE INPATIENT Primary Plan Number:[id number] Secondary Plan Desc:[facility] Secondary Plan Number:[id number] Assessment Information BC CM Progress Note CM Note CM Note Notes: Pt admitted for chemo. Met with pt and . Pt is doing well at home. Pt is working with a [place] Medicaid specialist in [place] to get approved. He also states that his Medicare Part B will not be active until September 21. Date Signed: 04/27/2017 04:10 PM Electronically Signed By:Lynette Mueller LCSW BC CM Progress Note CM Note CM Note Notes: Attempted to meet with patient on two occasions not available--not in room. Thoracentesis scheduled today. Case Management will continue to follow for any discharge needs. Date Signed: 04/30/2017 03:55 PM Electronically Signed By:Mary Neff RN BC CM Progress Note CM Note CM Note Notes: Pt off IV ABX, per ID, and s/p thoracentesis. Pt and his have refused home care and SNF in the past. Anticipate d/c with no CM needs unless cultures indicate need for IV ABX. Date Signed: 05/01/2017 03:28 PM Electronically Signed By:GLYNN Watt [facility] CM Progress Note CM Note CM Note Notes: Pt started new chemo regime last night and will continue through today. Pt denies having any DC needs at this time. DC in next few days likely. Date Signed: 05/03/2017 02:58 PM Electronically Signed By:Lynette Mueller LCSW Intervention Information Intervention Type:*IM-Signed Date of Service:05/04/2017 03:57 PM Patient Type:Inpatient Staff Member:Chula Krueger Hours: Discipline: Severity: Comment:
--- NOTE | 2017-05-04 17:46 | PDDCSUM ---
Discharge Summary Discharge Summary: DISCHARGE DIAGNOSES: -fevers and systemic immune response syndrome I believed to be due to recurrent lymphoma with no infection identified, fevers resolved -progression of diffuse large cell B-cell lymphoma, CD 20 positive despite R- CHOP; malignant pleural effusion and increase in abdominal and thoracic adenopathy noted -anemia and thrombocytopenia due to lymphoma and related treatments -history of AFib, on amiodarone -history of COPD stable CONSULTANTS: Dr. Cabrera Tran PROCEDURES: CT scans of abdomen and pelvis Thoracentesis HOSPITAL COURSE SUMMARY: Patient who has a diagnosis recently of large B-cell lymphoma was receiving R- CHOP therapy. He came into the hospital at this time with weakness fevers and mild increase in shortness of breath and some sense of imbalance. He had fevers with systemic immune response syndrome but there was never any finding of an infectious syndrome otherwise and nothing grew in any cultures. He has now been observed for several days off of antibiotics without any further fever or finding to suggest infection. He is identified as having a pleural effusion which we believe is malignant and increase in thoracic and abdominal adenopathy. He underwent a thoracentesis which gave him good relief of respiratory symptoms but is nondiagnostic for his lymphoma. As the patient has progression of his lymphoma it was elected to change his course of therapy from R-CHOP to a new Rituxan based therapy. The patient did undergo therapy here with Rituxan and chemotherapy agents to begin his new therapy and he tolerated these very well without any side effects at all. He is now stable for discharge. He will follow up in clinic at [facility] with Dr. Villagomez this week to plan for therapy and monitoring. PENDING TEST RESULTS: None Greater than 35 minutes bedside and care coordination time today
--- NOTE | 2017-05-08 14:51 | PQFORM ---
PHYSICIAN QUERY FORM Needs Your Response This query form is being sent to you to assure this patient record is coded properly. Please respond to the question below: SUPPLY AIDE QUESTION: Dear Dr. 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 Labs dated 04/29 patients WBC=3.63, RBC=2.64, Platelets=20.33. After study, should the diagnosis of "Antineoplastic chemotherapy induced pancytopenia" be included in the Discharge Summary? Yes No Unable to determine Other more appropriate diagnosis (please specify) Thank you Ayde Ridley, [facility] HIM/Coding Dept. [phone] INSTRUCTIONS FOR RESPONSE: Answer question by clicking on the "Edit Document" button. Move cursor to area below the stars. When complete, hit "Save." Click on the "Sign" button, then click "Sign" again. Type in your PIN and hit "Enter." Would not call this pancytopenia as neutrophil counts were all normal and total wbc count minimally low on one occaision. Would diagnose as per discharge note. MTDD
== END 2017-05-04 17:17 | disposition home or self-care (01) | DRG 841 ==
LOC: F1N 10:26 → OBSVTOIN 10:26 → F1N 10:41
PROVIDERS: ADMIT Internal Medicine; ATTEND Internal Medicine
PROC: 0W993ZX Drainage of Right Pleural Cavity, Percutaneous Approach, Diagnostic (ICD-10-PCS; 2017-04-30)
PROC: 3E03305 Introduction of Other Antineoplastic into Peripheral Vein, Percutaneous Approach (ICD-10-PCS; principal; 2017-05-03)
DX: C83.30 Diffuse large B-cell lymphoma, unspecified site (principal); R65.10 Systemic inflammatory response syndrome (SIRS) of non-infectious origin without acute organ dysfunction; J91.0 Malignant pleural effusion; D64.81 Anemia due to antineoplastic chemotherapy; D69.59 Other secondary thrombocytopenia; T45.1X5A Adverse effect of antineoplastic and immunosuppressive drugs, initial encounter; I48.91 Unspecified atrial fibrillation; J44.9 Chronic obstructive pulmonary disease, unspecified; Z79.01 Long term (current) use of anticoagulants
CPT/HCPCS: 85060-90; 87449-90; 88184-90; 88185-91; J0692; J1100; J1453; J1642; J2060; J2469; J3370; J9000; J9060; J9070; J9201; J9310; J9370; Q5101-ZA; Q9967

== ENCOUNTER 2017-05-10 12:52 | Outpatient (CLI) | payer OTHER ==
[2017-05-10 13:11] VITALS: RESP 18; TEMP 98; O2SAT 95
[2017-05-10] MEDS ORDERED: NS IV ONE ×2 (13:30→14:00)
[2017-05-10] MEDS ORDERED: DEXAMETHASONE SOD PHOSPHATE IV ONE (13:30)
[2017-05-10] MEDS ORDERED: GEMCITABINE HCL IV ONE (14:00)
[2017-05-10 16:00] VITALS: BP 143/76; PULSE 74
== END 2017-05-10 17:00 | disposition home or self-care (01) ==
LOC: EEVIPCON 12:52 → F1NOP 12:52
PROVIDERS: ATTEND Internal Medicine Hematology & Oncology
DX: Z51.11 Encounter for antineoplastic chemotherapy (principal); C85.90 Non-Hodgkin lymphoma, unspecified, unspecified site
CPT/HCPCS: J1100; J1642; J9201

== ENCOUNTER → 2017-05-16 | Outpatient (CLI) | payer OTHER ==
[~2017-05-16] MED LIST changes: +ACETAMINOPHEN 325 MG TAB ONE
== END ==
LOC: FOBOP 16:13
PROVIDERS: ATTEND Internal Medicine Hematology & Oncology
DX: C83.30 Diffuse large B-cell lymphoma, unspecified site (principal)
CPT/HCPCS: 36430; P9016; P9037; P9040; 99001-90; J1642

== ENCOUNTER 2017-05-17 06:11 | Emergency (ER) | payer OTHER ==
--- NOTE | 2017-05-17 06:33 | EDPHY ---
H & P Stated Complaint: bleeding from port and hit head- bleeding Time Seen by Provider: 05/17/17 06:20 HPI/ROS: HPI The patient presents with bleeding from his port. 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 Yesterday he had labs drawn and was found to be pancytopenic. He received a transfusion last night of pack red blood cells and platelets. He was discharged home at around midnight. He awoke this morning to notice blood around the site of his port. This is what brought him into the emergency department. When he was getting out of the car, he brushed his head on the ceiling and his mass on his scalp began to bleed somewhat. He does not have a headache. He did not lose consciousness. He does not have any nausea vomiting or vision changes.. REVIEW OF SYSTEMS Constitutional: No fever, no chills. Eyes: No discharge. ENT: No sore throat. Cardiovascular: No chest pain, no palpitations. Respiratory: No cough, no shortness of breath. Gastrointestinal: No abdominal pain, no vomiting. Genitourinary: No hematuria. Musculoskeletal: No back pain. Skin: No rashes. Neurological: No headache. PMHx: Diffuse B-cell lymphoma on chemotherapy, pancytopenic Soc Hx: Lives at home with his PHYSICAL General Appearance: Alert, no distress Eyes: Pupils equal and round no pallor or injection Head: Left occipital mass about 4 mm in diameter which is fungating in appearance with no active bleeding currently but dried blood on the inferior aspect ENT, Mouth: Mucous membranes moist Chest wall: Port in place in right chest with slow ooze from site of needle insertion Respiratory: There are no retractions, lungs are clear to auscultation Cardiovascular: Regular rate and rhythm Gastrointestinal: Abdomen is soft and non-tender, no masses, bowel sounds normal Neurological: A&O, moves all extremities Skin: Warm and dry, no rashes Musculoskeletal: Neck is supple non tender Extremities: symmetrical, full range of motion Psychiatric: Patient is oriented X 3, there is no agitation Source: Patient, Family Exam Limitations: No limitations - Medical/Surgical History Hx Asthma: No Hx Chronic Respiratory Disease: No Hx Diabetes: No Hx Cardiac Disease: No Hx Renal Disease: No Hx Cirrhosis: No Hx Alcoholism: No Hx HIV/AIDS: No Hx Splenectomy or Spleen Trauma: No Other PMH: htn, lymphoma-- non hodgkin's, a fib, tinea corporis, thrombocytopenia - Social History Smoking Status: Never smoked Constitutional: Initial Vital Signs Temperature (C) 37 C 05/17/17 06:15 Heart Rate 89 05/17/17 06:15 Respiratory Rate 20 05/17/17 06:15 Blood Pressure 177/95 H 05/17/17 06:15 O2 Sat (%) 100 05/17/17 06:15 O2 Delivery Mode Room Air Allergies/Adverse Reactions: No Known Allergies Allergy (Unverified 05/17/17 06:15) Home Medications: Medication Instructions Recorded Acyclovir [Zovirax 400 mg (*)] 400 mg PO BID #60 tab 02/14/17 Multivitamins [Multivitamin (*)] 1 each PO DAILY 03/14/17 Amiodarone HCl 1 tab PO DAILY 04/27/17 Acetaminophen [Arthritis Pain 650 mg PO PRN 05/16/17 Relief] Medical Decision Making Differential Diagnosis: 72-year-old male, diffuse B-cell lymphoma, found to be pancytopenic yesterday status post transfusion of PRBCs and platelets, now with bleeding from his port. Bleeding seems to mostly have subsided, there is dried blood on his Band- Aid and a slow ooze from the site of the port. He also has hit his head getting out of the car is and sustained an abrasion to his skin cancer lesion on his scalp. He did not hit his head with much force at all. He has no headache, nausea, vomiting, vision change, loss of consciousness. Plan to recheck CBC. We will place Surgicel on his port site to stop the bleeding. The patient's bleeding has been controlled with Surgicel. He continues to feel well. CBC is pending. If his platelets have increased appropriately after his blood transfusion, he will be suitable for discharge. I signed out the case to the oncoming provider Dr. Centeno. - Data Points Laboratory Results: Laboratory Results 05/17/17 06:40 Departure - Departure Disposition: Home, Routine, Self-Care Clinical Impression: Pancytopenia, Port-a-cath in place B-cell lymphoma Qualifiers: B-cell lymphoma type: diffuse large B-cell Lymphoma site: unspecified region Qualified Code(s): C83.30 - Diffuse large B-cell lymphoma, unspecified site Condition: Good Instructions: Pancytopenia (DC) Referrals: Rhame,Diane T, MD [Primary Care Provider] - As per Instructions
[2017-05-17 07:14] LABS: PLATELET COUNT 29 10^3/uL (150-400)
[2017-05-17 08:14] VITALS: BP 162/92; PULSE 73; RESP 16; TEMP 98.2; O2SAT 94
== END 2017-05-17 08:15 | disposition home or self-care (01) ==
DX: D61.818 Other pancytopenia (principal); C83.30 Diffuse large B-cell lymphoma, unspecified site; I10 Essential (primary) hypertension; Z45.2 Encounter for adjustment and management of vascular access device

== ENCOUNTER 2017-05-22 10:19 | Outpatient (CLI) | payer OTHER ==
[2017-05-22] MEDS ORDERED: diphenhydrAMINE 25 MG CAP PO ONE (11:15)
[2017-05-22] MEDS ORDERED: ACETAMINOPHEN 325 MG TAB PO ONE (11:15)
[2017-05-22] MEDS ORDERED: ACETAMINOPHEN 325 MG TAB ONE (11:31)
== END 2017-05-22 15:00 | disposition home or self-care (01) ==
LOC: FOBOP 10:19
PROVIDERS: ATTEND Internal Medicine Hematology & Oncology
PROC: 30233N1 Transfusion of Nonautologous Red Blood Cells into Peripheral Vein, Percutaneous Approach (ICD-10-PCS; principal; 2017-05-22)
DX: C85.90 Non-Hodgkin lymphoma, unspecified, unspecified site (principal)
CPT/HCPCS: 36430; P9016; P9037; P9040; J1642

== ENCOUNTER 2017-05-28 11:28 | Inpatient (IN) | payer OTHER ==
--- NOTE | 2017-05-28 12:24 | EDPHY ---
H & P Time Seen by Provider: 05/28/17 12:07 HPI/ROS: CHIEF COMPLAINT: Fever, low sat HISTORY OF PRESENT ILLNESS: Patient is a 72-year-old male with a history of refractory non-Hodgkin's lymphoma status post second-line chemotherapy 3 weeks ago. Patient has chronic right-sided pleural effusion. He was seen in the office on Sunday with mild shortness of breath. He was found to be mildly hypoxic. He was started on antibiotics but does not recall the name. Patient was rechecked today and had oxygen saturations into the 80s. He has also been febrile over the weekend. He was sent to the emergency department for further evaluation and admission. Patient denies any chest pain. He has had no cough. He denies abdominal pain. REVIEW OF SYSTEMS: My complete review of systems is negative except as mentioned in the HPI. Past Medical/Surgical History: Includes hypertension, non-Hodgkin's lymphoma, atrial fibrillation, thrombocytopenia, tinea corporis Social history: Patient does not smoke. Smoking Status: Never smoked Physical Exam: 38.6, 114/59, 102, 18, 95% on room air GENERAL: No acute distress, alert. Alopecia HEENT: Eyes normal to inspection, normal pharynx, no signs of dehydration. NECK: No thyromegaly, no lymphadenopathy, supple. RESPIRATORY: Decreased breath sounds in right base, no rales, rhonchi or wheezing. Chest wall: Right anterior chest wall port. Site appears normal. CVS: Mild tachycardia with regular rhythm, no rubs, murmurs, or gallops. ABDOMEN: Soft, nontender, nondistended, no organomegaly. BACK: Normal to inspection, no CVA tenderness. SKIN: Normal color, no rash, warm, dry. No pallor. EXTREMITIES: No pedal edema, no calf tenderness, no Homans sign or cords, no joint swelling. NEURO/PSYCH: Alert and oriented x3, normal mood and affect, normal motor sensory exam. No obvious cranial nerve deficit. Constitutional: Initial Vital Signs Temperature (C) 38.6 C H 05/28/17 11:37 Heart Rate 102 H 05/28/17 11:37 Respiratory Rate 18 05/28/17 11:37 Blood Pressure 114/59 L 05/28/17 11:37 O2 Sat (%) 95 05/28/17 11:37 O2 Delivery Mode Room Air Allergies/Adverse Reactions: No Known Allergies Allergy (Verified 05/28/17 11:37) Home Medications: Medication Instructions Recorded Acyclovir [Zovirax 400 mg (*)] 400 mg PO BID #60 tab 02/14/17 Multivitamins [Multivitamin (*)] 1 each PO DAILY 03/14/17 Amiodarone HCl 1 tab PO DAILY 04/27/17 Acetaminophen [Arthritis Pain 650 mg PO Q6 PRN 05/16/17 Relief] Amoxicillin/Clavulanate Pot 875 mg PO BID 05/28/17 [Augmentin 875 MG TAB (*)] Benzonatate [Tessalon Pearles] 100 mg PO Q6 PRN 05/28/17 LORazepam [Lorazepam] 1 mg PO Q4 PRN 05/28/17 Ondansetron [Zofran Odt] 8 mg PO Q6 PRN 05/28/17 Potassium Cl [Klor-Con 20 meq (*)] 20 meq PO BID 05/28/17 Medical Decision Making - Diagnostics Imaging Results: Imaging Impressions Chest X-Ray 05/28/17 12:24 Impression: Reaccumulation of moderate right pleural effusion with compressive atelectasis in 2018. ED Course/Re-evaluation: In the emergency department I discussed the case with the patient. Dr. Aki Duggan was present in the patient's room when I arrive. We discussed the case and plan. He recommend the patient have workup in the emergency department including chest x-ray. He did not feel he needs CT imaging at this time. He recommended the patient be given cefepime 2 g IV q.8 hours. I also recommended 2 U packed red blood cells. These need no special treatment. Patient had laboratory studies and chest x-ray ordered. The cefepime 2 g IV was ordered. 2 U of packed red blood cells were ordered. I discussed case with the hospitalist service. Patient's flu screen was negative. Chemistry panel is unremarkable. Patient is leukopenic with a white count of 1.57. His hematocrit is low at 14.2. Platelet count is 24. Patient's lactic acid is 1.4. I discussed the results with the patient. Patient was stable during his stay. Differential Diagnosis: My differential includes but is not limited to neutropenic fever, anemia, bacteremia, sepsis, empyema, blood pneumonia, bronchitis - Data Points Laboratory Results: Laboratory Results 05/28/17 12:30 05/28/17 12:30 05/28/17 05/28/17 05/28/17 12:30 12:30 12:30 WBC RBC Hgb Hct MCV MCH MCHC RDW Plt Count MPV Neut % (Auto) Lymph % (Auto) [place] % (Auto) Eos % (Auto) Baso % (Auto) Nucleat RBC Rel Count Absolute Neuts (auto) Absolute Lymphs (auto) Absolute Monos (auto) Absolute Eos (auto) Absolute Basos (auto) Absolute Nucleated RBC Immature Gran % Seg Neutrophils % Band Neutrophils % Lymphocytes % Monocytes % Basophils % Immature Gran # Absolute Seg Neuts Absolute Band Neuts Absolute Lymphocytes Absolute Monocytes Absolute Basophils Platelet Estimate Polychromasia Microcytic Cells Oval Macrocytes Smear Review By PT INR APTT VBG Lactic Acid Sodium 138 mEq/L mEq/L (135-145) Potassium 4.0 mEq/L mEq/L (3.5-5.2) Chloride 102 mEq/L mEq/L (97-110) Carbon Dioxide 25 mEq/l mEq/l (22-31) Anion Gap 11 mEq/L mEq/L (8-16) BUN 15 mg/dL mg/dL (7-23) Creatinine 1.3 mg/dL mg/dL (0.7-1.3) Estimated GFR 54 Glucose 119 mg/dL H mg/dL (70-100) Calcium 8.1 mg/dL L mg/dL (8.5-10.4) Total Bilirubin 1.3 mg/dL mg/dL (0.1-1.4) Nasal Influenza A PCR NEGATIVE FOR FLU A (NEGATIVE) Nasal Influenza B PCR NEGATIVE FOR FLU B (NEGATIVE) Patient ABO/Rh A NEGATIVE Antibody Screen NEGATIVE Crossmatch IS Only See Detail 05/28/17 05/28/17 05/28/17 12:30 12:30 12:30 WBC 1.57 10^3/uL L 10^3/uL (3.80-9.50) RBC 1.67 10^6/uL L 10^6/uL (4.40-6.38) Hgb 5.0 g/dL L* g/dL (13.7-17.5) Hct 14.2 % L* % (40.0-51.0) MCV 85.0 fL fL (81.5-99.8) MCH 29.9 pg pg (27.9-34.1) MCHC 35.2 g/dL g/dL (32.4-36.7) RDW 18.3 % H % (11.5-15.2) Plt Count 24 10^3/uL L* 10^3/uL (150-400) MPV 9.8 fL fL (8.7-11.7) Neut % (Auto) Not Reported Lymph % (Auto) Not Reported [place] % (Auto) Not Reported Eos % (Auto) Not Reported Baso % (Auto) Not Reported Nucleat RBC Rel Count 1.3 % H % (0.0-0.2) Absolute Neuts (auto) Not Reported Absolute Lymphs (auto) Not Reported Absolute Monos (auto) Not Reported Absolute Eos (auto) Not Reported Absolute Basos (auto) Not Reported Absolute Nucleated RBC 0.02 10^3/uL H 10^3/uL (0-0.01) Immature Gran % Not Reported Seg Neutrophils % 36 % % Band Neutrophils % 2 % % Lymphocytes % 41 % % Monocytes % 19 % % Basophils % 2 % % Immature Gran # Not Reported Absolute Seg Neuts 0.57 10^/uL L 10^/uL (1.70-6.50) Absolute Band Neuts 0.03 10^3/uL 10^3/uL (0.00-0.70) Absolute Lymphocytes 0.64 10^3/uL L 10^3/uL (1.00-3.00) Absolute Monocytes 0.30 10^3/uL 10^3/uL (0.30-0.80) Absolute Basophils 0.03 10^3/uL 10^3/uL (0.02-0.10) Platelet Estimate DECREASED L (ADEQ) Polychromasia 1+ H Microcytic Cells 1+ H Oval Macrocytes 1+ H Smear Review By Pending PT 15.4 SEC H SEC (12.0-15.0) INR 1.20 H (0.83-1.16) APTT 42.2 SEC H SEC (23.0-38.0) VBG Lactic Acid 1.4 mmol/L mmol/L (0.7-2.1) Sodium Potassium Chloride Carbon Dioxide Anion Gap BUN Creatinine Estimated GFR Glucose Calcium Total Bilirubin Nasal Influenza A PCR Nasal Influenza B PCR Patient ABO/Rh Antibody Screen Crossmatch IS Only Medications Given: Discontinued Medications Sodium Chloride (Ns) 500 mls @ 0 mls/hr IV ONCE ONE PRN Reason: Wide Open Stop: 05/28/17 12:26 Last Admin: 05/28/17 14:16 Dose: 500 mls Cefepime HCl 2 gm/ Sterile (Water) 12.5 mls @ 150 mls/hr IV EDNOW ONE PRN Reason: Protocol Stop: 05/28/17 12:37 Last Admin: 05/28/17 14:56 Dose: 12.5 mls Departure - Departure Disposition: [facility] Inpatient Acute Clinical Impression: Hypoxia, Neutropenic fever, Leukopenia, Thrombocytopenia, Anemia Condition: Good
[2017-05-28] MEDS ORDERED: NS 500 ML IV ONE (12:25)
[2017-05-28] MEDS ORDERED: CEFEPIME HCL 2 GM in STERILE WATER INJ 12.5 ML IV ONE (12:33)
--- NOTE | 2017-05-28 12:51 | GHP ---
[f rep st] HISTORY AND PHYSICAL DATE OF ADMISSION: 05/28/2017 HISTORY OF PRESENT ILLNESS: The patient is a pleasant 72-year-old gentleman followed by my partner, Dr. Luther Villagomez. He was diagnosed with stage IVB diffuse large B-cell lymphoma in January of 2017. He was treated with 3 cycles of Rituxan CHOP chemotherapy therapy, but unfortunately developed disease progression after his 3rd cycle of treatment. Dr. Villagomez transitioned him to Rituxan, gemcitabine, dexamethasone and cisplatin, which he received cy maisha 1 on May 10, 2017. The patient has had fairly good tolerance to treatment. He reports having a low-grade fever for approximately 1 weeks' duration. He was febrile in the offic e on Sunday with neutropenia. He was treated with outpatient antibiotic therapy. He presented to the office again today with persistent fevers. He was found to be hypoxemic with a p ulse oximetry reading of 84%. He was tachycardic. His hemoglobin was low at 6.0. He was transferre d to the emergency department for evaluation and admission. When seen in the emergency department this afternoon he is resting comfortably. His pulse oximetry r eadings are improved. He denies chest pain. He has had approximately 2-3 days of a nonproductive co ugh. He denies dyspnea at rest. He reports mild nausea. He denies abdominal pain or bloating. He denies diarrhea. His is at the bedside. PAST MEDICAL HISTORY: 1. Diffuse large B-cell lymphoma as outlined above. 2. Additionally, the patient has a history of nonmelanoma skin cancer. PAST SURGICAL HISTORY: 1. Ankle surgery. 2. Resection of non-melanomatous skin cancer involving scalp. FAMILY MEDICAL HISTORY: The patient reports that his mother at age 91 of a CVA. His father d at age 83 of complications due to Parkinson disease. His father had previously had head and neck c ancer. He denies any other known family history of malignancy. SOCIAL HISTORY: The patient works as an upholsterer. He admits to moderate alcohol use. He is a no nsmoker. REVIEW OF SYSTEMS: As outlined above. Remainder of 12-point review of systems otherwise negative. PHYSICAL EXAM: GENERAL: The patient is resting comfortably in bed. He is in no acute distress. HE ENT: No scleral icterus. No mucosal lesions. There is a Mediport in the right chest wall. The sit e is without induration, warmth, or tenderness. LUNGS: Sounds are decreased at the lower 1/3 of the right hemithorax. Otherwise clear. No flank tenderness bilaterally. ABDOMEN: Soft, nontender, no ndistended with no organomegaly or mass. No extremity swelling or edema. Mild conjunctival pallor i s present. Patient is alert, oriented, and appropriate. LABORATORY STUDIES: From the office today, white count 2.2, hemoglobin 6.0, hematocrit 17.0, MCV 86. 3, platelet count is 26,000, absolute neutrophil count is 700. BUN 13, creatinine 1.3, glucose 140, sodium 141, potassium 4.2, chloride 102, bicarb 23, bilirubin is 1.4. IMPRESSION: 1. Relapsed/refractory diffuse large B-cell lymphoma, status post 1st cycle of Rituxan, gemcitabine, cisplatin and dexamethasone given May 10, 2017. 2. Chemotherapy-induced anemia. 3. Chemotherapy-induced thrombocytopenia. 4. Chemotherapy-induced neutropenia. 5. History of right pleural effusion secondary to #1. 6. Hypoxemia. 7. Fever. The patient is a pleasant 72-year-old gentleman with relapsed/refractory diffuse large B-cell lymphom a, status post recent second-line chemotherapy with Rituxan, gemcitabine, cisplatin, dexamethasone. He is admitted to the hospital now with chemotherapy-induced pancytopenia and fever. On exam, he is actually nontoxic in appearance with no obvious focal source of infection. I recommend transfusion of 2 units of packed red blood cells. He does not require any special blood cell parameters. The risks and benefits of transfusion were reviewed in detail with the patient. He consents. I recommend a chest x-ray as well as blood and urine cultures to be submitted in the ER. I recommend he be started on broad-spectrum antibiotics with cefepime 2 g IV q.8 hours. He will be given supplemental oxygen. If he has significant effusion on chest x-ray this could be addressed with a therapeutic and diagnost ic thoracentesis. The patient does not require a platelet transfusion currently. It appears that he did not receive gr owth factor support with his initial chemotherapy. Given that he is over 3 weeks out from chemothera py with an improving neutrophil count, I do not believe he requires G-CSF therapy currently. I would recommend checking a CBC daily. Certainly if his condition were to worsen, administration of G-CSF therapy could be considered. Our service will continue to follow him closely. His case was discussed with the attending ER physician and treatment recommendations were made. Anti biotics and blood transfusion will be ordered by the ER. I will continue to follow him during his hospital stay. Dr. Villagomez is aware of his admission. The plan was discussed with the patient. His questions were answered. TOTAL TIME: Today's visit was approximately 45 minutes of which greater than 50% was spent in counse ling and care coordination. /[id number]/MODL
[2017-05-28 12:55] LABS: INR 1.2 (0.83-1.16); PLATELET COUNT 24 10^3/uL (150-400); PROTIME(PATIENT) 15.4 SEC (12.0-15.0)
[2017-05-28] MEDS ORDERED: LORazepam 1 MG TAB PO PRN (15:21)
[2017-05-28] MEDS ORDERED: ACETAMINOPHEN 650 MG PO PRN (15:21)
[2017-05-28] MEDS ORDERED: ONDANSETRON DISINTEGRATING 4 MG TAB PO PRN ×2 (15:26→15:36)
[2017-05-28] MEDS ORDERED: ONDANSETRON 4 MG/2 ML VIAL IVP PRN (15:26)
[2017-05-28] MEDS ORDERED: ZOLPIDEM TARTRATE 5 MG TAB PO PRN (15:26)
--- NOTE | 2017-05-28 15:58 | GHP ---
[f rep st] HISTORY AND PHYSICAL DATE OF ADMISSION: 05/28/2017 CHIEF COMPLAINT: Fevers. HISTORY OF PRESENT ILLNESS: A 72-year-old man, history of lymphoma on chemotherapy, was seen in [facility] today by Dr. Villagomez, sent into the ER for fevers. He had also been seen 3 days prior to today by Niall Villagomez. He had complained of some low-grade fevers at that point. Blood cultures were sent. He w as started empirically on Augmentin. Blood cultures are no growth to date. He tells me he has had f margie on and off for about 5 days. He has a mild nonproductive cough. He has no rash on his skin, n o dysuria, per report does not hurt. He has no abdominal pain or diarrhea. He has not really felt s hort of breath. He had been admitted here about a month ago. At that point, he had a fever as well as a right-sided pleural effusion. Thoracentesis was exudative, cultures were negative, cytology was negative. At that point, Infectious Disease thought his fever was due to lymphoma. PAST MEDICAL/SURGICAL HISTORY: 1. Diffuse large B-cell lymphoma, received his last chemotherapy on May 10. This is stage 4B, w as diagnosed in January of 2017. 2. Nonmelanoma skin cancer. 3. Atrial fibrillation as an inpatient. 4. Ankle surgery. MEDICATIONS: Please see medication reconciliation. FAMILY HISTORY: His mother at age 91 of a stroke. 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 He does not smoke. REVIEW OF SYSTEMS: A 10-point review of systems is conducted and is negative except per HPI. PHYSICAL EXAM: VITAL SIGNS: Blood pressure 117/73, heart rate 80, respiration rate 16, saturating 1 00% on 2 L. T-max is 38.6. GENERAL: The patient is a comfortable man who is resting in bed. His w benny is accompanying him. HEENT: Shows him to be normocephalic, atraumatic. CARDIOVASCULAR: Regula r rate and rhythm. No murmurs, rubs, or gallops. CHEST: Shows right-sided port in place. There is no surrounding erythema, fluctuance, is nontender. PULMONARY: Shows diminished breath sounds in th e right base. Otherwise clear bilaterally. ABDOMEN: Shows him to be soft, nontender, nondistended. SKIN: Shows no rash. : No Reed. NEUROLOGIC: Shows him to be alert and oriented x3. He has a nonfocal exam. PSYCHIATRIC: Shows normal mood and affect. LABS: Hemoglobin is 5, platelets are 24, white count is 1.57 with 36% neutrophils and 2% bands. Bas ic metabolic panel is normal. Bilirubin is 1.3. DATA: 1. I reviewed his chart. 2. I personally viewed and interpreted his chest x-ray. This shows a moderate right-sided pleural e ffusion. IMPRESSION AND PLAN: A 72-year-old man admitted with fevers. 1. Fevers: Blood cultures have been drawn. Urinalysis is pending. I agree with thoracentesis of h is right pleural effusion, this has been ordered. Also consider lymphoma as a possible etiology. Ag ree with empiric cefepime. 2. Right-sided pleural effusion: Previously exudative, cultures and cytology are negative. I have ordered a thoracentesis. Ordered appropriate labs. 3. Thrombocytopenia: We will need to transfuse him to platelets above 50,000 prior to thoracentesis . I have ordered 2 units. I have asked nursing to coordinate with Radiology on appropriate timing. 4. Diffuse large B-cell lymphoma: Treated by Dr. Villagomez. Last chemotherapy was on May 10. This had progressed after R-CHOP. He was already seen by Dr. Duggan in the emergency department. 5. Anemia: Agree with transfusion of 2 units packed red blood cells. This has been ordered by the emergency department. 6. Tachycardia: Likely due to anemia. He has already improved. 7. Hypoxia: Saturating at 95% on room air in the emergency department. Suspect that hypoxia is mos t likely due to pleural effusion. Unlikely to have a pleural embolus with platelets as low as his. 8. Atrial fibrillation: Continue amiodarone. 9. We will place him on SCDs. /[id number]/MODL
[2017-05-28 16:23] LABS: PLATELET COUNT 20 10^3/uL (150-400)
[2017-05-28] MEDS: ACYCLOVIR 400 MG TAB PO SCH (20:20)
[2017-05-28] MEDS: POTASSIUM CL 20 MEQ TAB PO SCH (20:20)
[2017-05-28] MEDS: BENZONATATE 100 MG CAP PO PRN (23:07)
[2017-05-28] MEDS: CEFEPIME HCL 2 GM in STERILE WATER INJ 12.5 ML IV SCH (23:07)
[2017-05-28] MEDS: ACETAMINOPHEN 325 MG TAB PO PRN (23:52)
[2017-05-29] MEDS: BENZONATATE 100 MG CAP PO PRN ×3 (05:38→20:27)
[2017-05-29] MEDS: ACETAMINOPHEN 325 MG TAB PO PRN ×3 (05:38→20:38)
[2017-05-29] MEDS: CEFEPIME HCL 2 GM in STERILE WATER INJ 12.5 ML IV SCH ×3 (06:26→17:54)
[2017-05-29] MEDS: diphenhydrAMINE 25 MG CAP PO PRN ×2 (08:14→23:39)
[2017-05-29] MEDS: AMIODARONE HCL 200 MG TAB PO SCH (08:14)
[2017-05-29] MEDS: ACYCLOVIR 400 MG TAB PO SCH ×2 (08:14→20:27)
[2017-05-29] MEDS: POTASSIUM CL 20 MEQ TAB PO SCH ×2 (08:14→20:27)
--- NOTE | 2017-05-29 09:33 | ASMTCMCOM ---
CM Note CM Note Notes: Patient admitted with chemotherapy-induced anemia, thrombocytopenia, and neutropenia. His last chemo (for stage IVB diffuse large B-cell lymphoma) was 05/10/17. He is being treated with IV antibiotics, blood products, supplemental O2, and he will have a thoracentesis for pleural effiusion today. Hospital medicine and oncology following. Patient lives independently with . No therapies have been ordered, and I do not anticipate any discharge needs. We will follow, however, and offer whatever support is needed. Date Signed: 05/29/2017 09:33 AM Electronically Signed By:Sara Reed RN
[2017-05-29 10:55] LABS: PLATELET COUNT 55 10^3/uL (150-400)
[2017-05-29] MEDS ORDERED: LIDOCAINE 1% 300 MG/30 ML SDV ONE (12:33)
--- NOTE | 2017-05-29 12:59 | SOAPPROG ---
SOAP Progress Note Assessment/Plan: Assessment: 1) Relapsed / refractory Diffuse Large B cell lymphoma (s/p cycle #1 R-GDP 05/10) 2) Pancytopenia secondary to #1 3) Neutropenic fever 4) Right pleural effusion 5) Large SCC involving scalp Plan: Patient did not respond well to transfusion. His CBC is still listed as "pending " in the computer. I called the lab. WBC=2.28 / hGB=6.0 / plt= 26. I have recommended 2 additional units PRBC's as well as 1 unit platelets (given pending thoracentesis). He does NOT require irradiated blood products. I will send a haptoglobin and Coomb's to exclude hemolysis. Continue current abx. Will hold off on use of white blood cell growth factors for now. Agree with diagnostic / therapuetic thoracentesis if he can achieve an adequate platelet count after transfusion. No clear source of infection currently. Dr. Villagomez is aware of his large scalp SCC, and the decision has been made to hold off addressing this until his lymphoma is in remission. Plan d/w patient and his . 05/29/17 12:47 05/29/17 12:48 05/29/17 13:01 Subjective: Feels fatigued. Still with low grade fevers. Suboptimal response to transfusion. Thoracentesis has been ordered, but is pending due to his low platelets. Objective: Vital Signs Temp Pulse Resp BP Pulse Ox 37.3 C 90 17 138/74 H 96 05/29/17 08:40 05/29/17 08:40 05/29/17 08:40 05/29/17 08:40 05/29/17 08:40 Laboratory Results 05/29/17 10:42 05/28/17 05/29/17 05/30/17 05:59 05:59 05:59 Intake Total 550 Output Total 700 Balance -150 PT 15.4 SEC (12.0-15.0) H 05/28/17 12:30 INR 1.20 (0.83-1.16) H 05/28/17 12:30 - Time Spent With Patient Time Spent With Patient: 25 minutes Physical Exam - Physical Exam General Appearance: no apparent distress EENT: PERRL/EOMI Respiratory: other (Decreased at Right base) Cardiac/Chest: regular rate, rhythm Abdomen: non-tender, soft Neuro/Psych: alert, normal mood/affect ICD10 Worksheet Patient Problems: Problems Problem Status Onset Anemia Acute Hypoxia Acute Leukopenia Acute Neutropenic fever Acute Thrombocytopenia Acute Acute respiratory failure with hypoxia Acute Edema Acute
--- NOTE | 2017-05-29 13:49 | HOSPPROG ---
Hospitalist Progress Note Assessment/Plan: # fever - infectious vs d/t lymphoma - cont cefepime empirically, follow BCx - flu neg - will send resp viral pcr # R pleural effusion - thora today # pancytopenia d/t chemo - s/p 2U PRBC - s/p 2U plts # DLBCL - last chemo 05/10 # a-fib - amiodarone # SCC of scalp - no treatment for now Subjective: ready for thora; no acute events Objective: Vital Signs Temp Pulse Resp BP Pulse Ox 37.3 C 90 17 138/74 H 96 05/29/17 08:40 05/29/17 08:40 05/29/17 08:40 05/29/17 08:40 05/29/17 08:40 Laboratory Results 05/29/17 10:42 05/28/17 05/29/17 05/30/17 05:59 05:59 05:59 Intake Total 550 Output Total 700 Balance -150 PT 15.4 SEC (12.0-15.0) H 05/28/17 12:30 INR 1.20 (0.83-1.16) H 05/28/17 12:[address] Dugagn high risk with cancer and fevers - Physical Exam Constitutional: no apparent distress, appears nourished Cardiovascular: regular rate and rhythym, no murmur, rub, or gallop Respiratory: no respiratory distress, inspiratory crackles (mild R sided), other (diminished R sided BS), No expiratory wheeze Gastrointestinal: soft, non-tender abdomen, no palpable masses ICD10 Worksheet Patient Problems: Problems Problem Status Onset Edema Acute Acute respiratory failure with hypoxia Acute Hypoxia Acute Neutropenic fever Acute Leukopenia Acute Thrombocytopenia Acute Anemia Acute
--- NOTE | 2017-05-29 14:36 | PDMN ---
Medical Necessity Medical necessity: Patient meets inpatient criteria per physician note and [facility] Chemotherapy GRG (high-risk febrile neutropenia: pancytopenia; LOS will be > 2 midnights as R pleural effusion thoracentesis pending; platelets 20,000 despite platelet transfusion.)
[2017-05-29] MEDS ORDERED: ALTEPLASE 2 MG VIAL IVP PRN (15:02)
[2017-05-29] MEDS ORDERED: IOPAMIDOL (ISOVUE 370) 100 ML BTL IV ONE (21:17)
--- NOTE | 2017-05-29 21:44 | CPEKG ---
Heart Rate: 94 RR Interval: 638 P-R Interval: 136 QRSD Interval: 86 QT Interval: 360 QTC Interval: 451 P [place]: 58 QRS [place]: 34 T Wave [place]: 26 EKG Severity - OTHERWISE NORMAL ECG - EKG Impression: SINUS RHYTHM EKG Impression: LOW VOLTAGE IN FRONTAL LEADS Electronically Signed By: Angelique Lennon 30-May-2017 06:41:43
[2017-05-30] MEDS: ACETAMINOPHEN 325 MG TAB PO PRN ×2 (00:05→08:14)
[2017-05-30] MEDS: AMIODARONE HCL 200 MG TAB PO SCH (05:57)
[2017-05-30] MEDS: BENZONATATE 100 MG CAP PO PRN ×2 (06:00→17:51)
[2017-05-30 06:46] LABS: PLATELET COUNT 49 10^3/uL (150-400)
[2017-05-30] MEDS: CEFEPIME HCL 2 GM in STERILE WATER INJ 12.5 ML IV SCH ×3 (07:41→21:08)
[2017-05-30] MEDS: POTASSIUM CL 20 MEQ TAB PO SCH ×2 (08:15→21:07)
[2017-05-30] MEDS: ACYCLOVIR 400 MG TAB PO SCH ×2 (08:15→21:07)
--- NOTE | 2017-05-30 08:58 | CPEKG ---
Heart Rate: 127 RR Interval: 472 P-R Interval: 133 QRSD Interval: 78 QT Interval: 272 QTC Interval: 396 P [place]: 0 QRS [place]: 38 T Wave [place]: 40 EKG Severity - BORDERLINE ECG - EKG Impression: SINUS TACHYCARDIA EKG Impression: BORDERLINE R WAVE PROGRESSION, ANTERIOR LEADS EKG Impression: BORDERLINE T ABNORMALITIES, ANTERIOR LEADS Electronically Signed By: Preston García 01-Jun-2017 12:24:05
--- NOTE | 2017-05-30 09:13 | SOAPPROG ---
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 His Coomb's test is positive. He may have a component of AHA related to his lymphoma. I will give him a trial of Prednisone and folic acid. In light of no obvious infectious source, I think a trial of steroids is reasonable. He still has fever. ? tumor fever. Will check CT C/A/P to exclude lymphoma progression as cause of persistent fever. No clear source of infection currently. Continue abx, and await results from thoracentesis. He does feel somewhat better after thoracentesis. Dr. Villagomez is aware of his large scalp SCC, and the decision has been made to hold off addressing this until his lymphoma is in remission. Plan d/w patient. 05/29/17 12:47 05/29/17 12:48 05/29/17 13:01 05/30/17 09:10 Subjective: Feels somewhat better after thoracentesis. Better response to transfusion. Objective: Vital Signs Temp Pulse Resp BP Pulse Ox 39.2 C H 98 20 158/74 H 98 05/30/17 07:58 05/30/17 07:58 05/30/17 07:58 05/30/17 07:58 05/30/17 07:58 Microbiology 05/29/17 15:42 Respiratory Panel (PCR) - Final Nasal, Sinus - [place] Viral Transport No Organism Detected 05/29/17 15:00 Gram Stain - Final Thoracic Fluid - Aspirate Laboratory Results 05/30/17 06:00 05/30/17 06:00 05/29/17 05/30/17 05/31/17 05:59 05:59 05:59 Intake Total 850 Output Total 400 Balance 450 PT 15.4 SEC (12.0-15.0) H 05/28/17 12:30 INR 1.20 (0.83-1.16) H 05/28/17 12:30 - Time Spent With Patient Time Spent With Patient: 25 minutes Physical Exam - Physical Exam General Appearance: no apparent distress EENT: PERRL/EOMI Respiratory: lungs clear, other (Decreased at right base) Cardiac/Chest: regular rate, rhythm Abdomen: normal bowel sounds, non-tender, soft Neuro/Psych: alert, normal mood/affect ICD10 Worksheet Patient Problems: Problems Problem Status Onset Anemia Acute Hypoxia Acute Leukopenia Acute Neutropenic fever Acute Thrombocytopenia Acute Acute respiratory failure with hypoxia Acute Edema Acute
[2017-05-30] MEDS: FOLIC ACID 1 MG TAB PO SCH (10:22)
[2017-05-30] MEDS: predniSONE 20 MG TAB PO SCH (10:22)
--- NOTE | 2017-05-30 15:36 | HOSPPROG ---
Hospitalist Progress Note Assessment/Plan: # fever - infectious vs d/t lymphoma vs AHA - cont cefepime empirically, follow BCx - check CT CAP to eval for lymphoma progression # ?AHA - positive TREVON # R pleural effusion s/p thora - breathing beter # pancytopenia d/t chemo - s/p 2U PRBC - s/p 2U plts # DLBCL - last chemo 05/10 # a-fib - ECG from last night is a-fib vs MAT - cont amiodarone # SCC of scalp - no treatment for now Subjective: fever and tachycardia in last 24 hours Objective: Vital Signs Temp Pulse Resp BP Pulse Ox 36.9 C 82 20 142/78 H 98 05/30/17 12:47 05/30/17 12:47 05/30/17 12:47 05/30/17 12:47 05/30/17 12:47 Microbiology 05/29/17 15:00 Gram Stain - Final Thoracic Fluid - Aspirate 05/29/17 15:00 Mycobacterial Smear (MAXIM) - Final Thoracic Fluid - Aspirate 05/29/17 15:42 Respiratory Panel (PCR) - Final Nasal, Sinus - [place] Viral Transport No Organism Detected Laboratory Results 05/30/17 06:00 05/30/17 06:00 05/29/17 05/30/17 05/31/17 05:59 05:59 05:59 Intake Total 850 Output Total 400 Balance 450 PT 15.4 SEC (12.0-15.0) H 05/28/17 12:30 INR 1.20 (0.83-1.16) H 05/28/17 12:30 ECG personally reviewed - Physical Exam Constitutional: no apparent distress, appears nourished Cardiovascular: regular rate and rhythym, no murmur, rub, or gallop, other (R port) Respiratory: no respiratory distress, no rales or rhonchi, other (diminished R sided BS) Gastrointestinal: normoactive bowel sounds, soft, non-tender abdomen ICD10 Worksheet Patient Problems: Problems Problem Status Onset Edema Acute Acute respiratory failure with hypoxia Acute Hypoxia Acute Neutropenic fever Acute Leukopenia Acute Thrombocytopenia Acute Anemia Acute
[2017-05-31] MEDS: CEFEPIME HCL 2 GM in STERILE WATER INJ 12.5 ML IV SCH ×2 (05:15→14:24)
[2017-05-31 05:39] LABS: PLATELET COUNT 36 10^3/uL (150-400)
[2017-05-31] MEDS: ACYCLOVIR 400 MG TAB PO SCH (09:06)
[2017-05-31] MEDS: FOLIC ACID 1 MG TAB PO SCH (09:06)
[2017-05-31] MEDS: AMIODARONE HCL 200 MG TAB PO SCH (09:06)
[2017-05-31] MEDS: predniSONE 20 MG TAB PO SCH (09:06)
[2017-05-31] MEDS: POTASSIUM CL 20 MEQ TAB PO SCH (09:06)
[2017-05-31] MEDS ORDERED: IOPAMIDOL (ISOVUE 370) 100 ML BTL IV ONE ×2 (11:31→11:42)
--- NOTE | 2017-05-31 14:07 | SOAPPROG ---
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 His Coomb's test is positive. He may have a component of AHA related to his lymphoma His haptoglobin is not low, which argues against significant hemolysis. He has been started on Prednisone and folic acid. He feels better on this, so for now it will be continued. Reviewed his CT C/A/P. It looks like he has subtlr lymphoma progression. I discussed this with him. Discussed case with Dr. Villagomez. Patient has not had a good response to chemotherapy. In light of this, and his low platelets, will not give a different chemo regimen this hospital stay. Dr Villagomez considering a trial of outpatient Ibrutinib. Will let him go home today. Reasonable to keep him on Prednisone at d/c. No clear source of infection currently. I suspect that his fevers are related to lymphoma. I think that it is reasonable to observe him off abx. Dr. Villagomez is aware of his large scalp SCC, and the decision has been made to hold off addressing this until his lymphoma is in remission. Plan d/w patient and Dr. Cohen. He knows to call office or pest control service technician MD with new or progressive symptoms 05/29/17 12:47 05/29/17 12:48 05/29/17 13:01 05/30/17 09:10 05/31/17 13:56 05/31/17 14:10 Subjective: Feels well. Wants to go home. Objective: Vital Signs Temp Pulse Resp BP Pulse Ox 36.9 C 79 22 H 144/76 H 100 05/31/17 08:36 05/31/17 08:36 05/31/17 08:36 05/31/17 08:36 05/31/17 08:36 Microbiology 05/29/17 15:00 Gram Stain - Final Thoracic Fluid - Aspirate 05/29/17 15:00 Mycobacterial Smear (MAXIM) - Final Thoracic Fluid - Aspirate Laboratory Results 05/31/17 05:10 05/31/17 05:10 05/30/17 05/31/17 06/01/17 05:59 05:59 05:59 Intake Total 850 1375 Output Total 400 Balance 450 1375 PT 15.4 SEC (12.0-15.0) H 05/28/17 12:30 INR 1.20 (0.83-1.16) H 05/28/17 12:30 - Time Spent With Patient Time Spent With Patient: 25 minutes Physical Exam - Physical Exam General Appearance: alert, no apparent distress EENT: PERRL/EOMI Respiratory: other (Decreased right base) Cardiac/Chest: regular rate, rhythm Abdomen: non-tender, soft Neuro/Psych: normal mood/affect ICD10 Worksheet Patient Problems: Problems Problem Status Onset Anemia Acute Hypoxia Acute Leukopenia Acute Neutropenic fever Acute Thrombocytopenia Acute Acute respiratory failure with hypoxia Acute Edema Acute
[2017-05-31 14:13] VITALS: BP 132/72; PULSE 85; RESP 18; TEMP 97.5; O2SAT 94
--- NOTE | 2017-05-31 14:35 | ASMTCMCOM ---
CM Note CM Note Notes: Pt will DC today with no needs. Met with pt and to discuss his application for Medicare Part B. He and his are both confused about whether they have applied for par B and if so, if he has been accepted. Pt's thinks theie may be a letter asking for more info at home. Pt will fax or scan and email of copy of the latest communication with Medicare to this CM. Date Signed: 05/31/2017 02:34 PM Electronically Signed By:Lynette Mueller LCSW
--- NOTE | 2017-05-31 17:17 | GDS ---
[f rep st] DISCHARGE SUMMARY ALL DIAGNOSES: 1. Diffuse large B-cell lymphoma. 2. Fevers. 3. 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 4. Pancytopenia due to chemotherapy. 5. Right pleural effusion status post thoracentesis. 6. Atrial fibrillation, on amiodarone. 7. Squamous cell carcinoma of his scalp. HOSPITAL COURSE BY PROBLEM: 1. Fevers: Placed on broad-spectrum antibiotics empirically. No clear infectious source. Blood cu ltures have been negative. Pleural effusion was tapped. Gram stain is negative. Culture is no grow th to date. Suspect that this is due to lymphoma progression. There was mild progression seen on [facility] CT scan. I have discussed this with Dr. Duggan who agrees. He will follow up with Dr. Villagomez 3 or 4 days after discharge. 2. Suspected autoimmune hemolytic anemia: Placed on prednisone. Will see how he responds to this. May also help with his fevers. 3. Pleural effusion: He underwent a thoracentesis, removal of 800 cc. This was exudative. Cytolog y is pending. 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 Gram stain is negative . Culture shows no growth to date. 4. Atrial fibrillation: He had an episode of either atrial fibrillation or multifocal atrial tachyc ardia. I will continue his amiodarone. This resolved without intervention. BILLING: I spent more than 30 minutes on the day of discharge coordinating care. /[id number]/MODL
== END 2017-05-31 15:19 | disposition home or self-care (01) | DRG 840 ==
LOC: F1N 14:15 → OBSVTOIN 05-29 13:50
PROVIDERS: ADMIT Hospitalist; ATTEND Student in an Organized Health Care Education/Training Program
PROC: 30233N1 Transfusion of Nonautologous Red Blood Cells into Peripheral Vein, Percutaneous Approach (ICD-10-PCS; principal; 2017-05-28)
PROC: 0W993ZX Drainage of Right Pleural Cavity, Percutaneous Approach, Diagnostic (ICD-10-PCS; 2017-05-29)
DX: C83.38 Diffuse large B-cell lymphoma, lymph nodes of multiple sites (principal); D59.1 Other autoimmune hemolytic anemias; D61.810 Antineoplastic chemotherapy induced pancytopenia; J91.8 Pleural effusion in other conditions classified elsewhere; I48.91 Unspecified atrial fibrillation; C44.42 Squamous cell carcinoma of skin of scalp and neck
CPT/HCPCS: 83010-90; 96374; 99001-90; G0378; J0692; J1642; J2997; J7512; P9016; P9037; P9040; P9073; Q9967

== ENCOUNTER 2017-06-12 09:39 | Outpatient (CLI) | payer OTHER ==
[2017-06-12] MEDS ORDERED: ACETAMINOPHEN 325 MG TAB PO ONE (10:00)
[2017-06-12] MEDS ORDERED: diphenhydrAMINE 25 MG CAP PO ONE (10:00)
== END 2017-06-12 15:36 | disposition home or self-care (01) ==
LOC: FOBOP 09:39
PROVIDERS: ATTEND Internal Medicine Hematology & Oncology
PROC: 30233N1 Transfusion of Nonautologous Red Blood Cells into Peripheral Vein, Percutaneous Approach (ICD-10-PCS; principal; 2017-06-12)
DX: C85.90 Non-Hodgkin lymphoma, unspecified, unspecified site (principal)
CPT/HCPCS: 36430; P9016; P9040; P9073; J1642

== ENCOUNTER 2017-06-29 15:08 | Inpatient (IN) | payer OTHER ==
--- NOTE | 2017-06-29 15:22 | EDPHY ---
H & P Time Seen by Provider: 06/29/17 15:20 HPI/ROS: CHIEF COMPLAINT: Low blood count HISTORY OF PRESENT ILLNESS: Labs drawn today reviewed at 2:08 p.m. Show a white blood cell 2.8, hemoglobin 3.3, hematocrit 9.4, platelet count 7000. Patient has been getting sick since Sunday, on Ibrutinib started recently. Feeling worse this week with shortness of breath with exertion, fatigue, nausea and abdominal pain. Denies black or bloody stools. Weakness is really severe since Sunday of this week. Not focal. Worse with exertion. REVIEW OF SYSTEMS: Eye: no change in vision ENT: no sore throat Cardiac: no chest pain or syncope Pulmonary: no cough or SOB Abdomen: HPI Musculoskeletal: no back pain Skin: no rash Neuro: no headache Constitutional: no fever or chills : no urinary symptoms A comprehensive 10 point review of systems is otherwise negative aside from elements mentioned in the history of present illness. PAST MEDICAL HISTORY: Discharge summary dated 05/31/2017 personally reviewed includes large B-cell lymphoma, autoimmune hemolytic anemia, right pleural effusion, atrial fibrillation. Social history: Here with his and daughter General Appearance: Alert and conversant, cooperative. Eyes: Mild scleral icterus. ENT, Mouth: Normal mucous membranes. Respiratory: Normal respiratory effort, breath sounds equal, lungs are clear to auscultation. Cardiovascular: Regular rate and rhythm. Gastrointestinal: Abdomen is soft and non tender. Neurological: Alert, face symmetric, normal motor and sensory in extremities. Skin: Warm and dry, no rashes. Musculoskeletal: No peripheral edema. Psychiatric: Not agitated. Emergency Department course/MDM: Lilliam Alanis 1534 for [facility]. Specifically discussed transfusion or more immunosuppressants with previous diagnosis of autoimmune hemolytic anemia. Admission for severe anemia, probable transfusion, immunosuppressants as recommended by [facility]. 1602: Per Lilliam from [facility], discussed with Vickery, no additional immune suppressants, transfuse and admit. Packed red blood cells and platelets ordered. Admission step-down unit for severe anemia and thrombocytopenia, close monitoring. Patient does not have clinical evidence of acute bleeding right now. Smoking Status: Never smoked Constitutional: Initial Vital Signs Temperature (C) 36.6 C 06/29/17 15:10 Heart Rate 90 06/29/17 15:10 Respiratory Rate 15 06/29/17 15:10 Blood Pressure 135/59 H 06/29/17 15:10 O2 Sat (%) 100 06/29/17 15:10 O2 Delivery Mode Room Air Allergies/Adverse Reactions: No Known Allergies Allergy (Verified 05/28/17 11:37) Home Medications: Medication Instructions Recorded Acyclovir [Zovirax 400 mg (*)] 400 mg PO BID #60 tab 02/14/17 Multivitamins [Multivitamin (*)] 1 each PO DAILY 03/14/17 Amiodarone HCl 1 tab PO DAILY 04/27/17 Benzonatate [Tessalon Pearles] 100 mg PO Q6 PRN 05/28/17 LORazepam [Lorazepam] 1 mg PO Q4 PRN 05/28/17 Potassium Cl [Klor-Con 20 meq (*)] 20 meq PO BID 05/28/17 Folic Acid [Folic Acid 1 MG (*)] 1 mg PO DAILY #30 tab 05/31/17 predniSONE 60 mg PO DAILY #90 tablet 05/31/17 Acetaminophen [Tylenol ES 500 mg 500 mg PO DAILY PRN 06/29/17 (*)] Medical Decision Making - Diagnostics EKG Interpretation: 12-lead EKG interpreted by me; official reading is in trace master. My interpretation is sinus rhythm without ischemic abnormalities, rate 84. Differential Diagnosis: Differential diagnosis considered for weakness including but not limited to anemia, electrolyte abnormality, depression, and infectious causes. Consult/Admit Bed Type: [place] [id number] Critical Care Time: Critical care time spent by me, Dr. Suggs, exclusively with the care of this patient was 30 minutes, exclusive of PA or SOLE [employer]YER time and exclusive of separate procedures. The organ system at risk was hematologic and I ordered IV platelets , blood transfusion, consultation with hospitalist and incident analyst; to stabilize the patient and prevent worsening of the patient's condition. - Data Points Laboratory Results: Laboratory Results 06/29/17 15:35 06/29/17 15:35 06/29/17 06/29/17 06/29/17 15:39 15:35 15:35 WBC RBC Hgb POC Hgb TNP Hct POC Hct < 15 % L* % (40-51) MCV MCH MCHC RDW Plt Count MPV Neut % (Auto) Lymph % (Auto) [place] % (Auto) Eos % (Auto) Baso % (Auto) Nucleat RBC Rel Count Absolute Neuts (auto) Absolute Lymphs (auto) Absolute Monos (auto) Absolute Eos (auto) Absolute Basos (auto) Absolute Nucleated RBC Immature Gran % Seg Neutrophils % Lymphocytes % Monocytes % Metamyelocytes % Immature Gran # Absolute Seg Neuts Absolute Lymphocytes Absolute Monocytes Absolute Metamyelocyte Atypical Lymphocytes Platelet Estimate Microcytic Cells Smear Review By POC Sodium 133 mEq/L L mEq/L (135-145) Sodium 133 mEq/L L mEq/L (135-145) POC Potassium 3.9 mEq/L mEq/L (3.3-5.0) Potassium 4.1 mEq/L mEq/L (3.5-5.2) POC Chloride 100 mEq/L mEq/L (97-110) Chloride 100 mEq/L mEq/L (97-110) Carbon Dioxide 23 mEq/l mEq/l (22-31) Anion Gap 10 mEq/L mEq/L (8-16) POC BUN 25 mg/dL H mg/dL (7-23) BUN 26 mg/dL H mg/dL (7-23) Creatinine 1.0 mg/dL mg/dL (0.7-1.3) POC Creatinine 1.2 mg/dL mg/dL (0.7-1.3) Estimated GFR > 60 Glucose 97 mg/dL mg/dL (70-100) POC Glucose 106 mg/dL H mg/dL (70-100) Calcium 9.5 mg/dL mg/dL (8.5-10.4) Total Bilirubin 1.6 mg/dL H mg/dL (0.1-1.4) Conjugated Bilirubin 0.5 mg/dL mg/dL (0.0-0.5) Unconjugated Bilirubin 1.1 mg/dL mg/dL (0.0-1.1) AST 26 IU/L IU/L (17-59) ALT 64 IU/L IU/L (21-72) Alkaline Phosphatase 154 IU/L H IU/L (38-126) Total Protein 4.7 g/dL L g/dL (6.3-8.2) Albumin 2.7 g/dL L g/dL (3.5-5.0) Patient ABO/Rh A NEGATIVE Antibody Screen NEGATIVE Crossmatch IS Only See Detail 06/29/17 15:35 WBC 2.35 10^3/uL L 10^3/uL (3.80-9.50) RBC 1.02 10^6/uL L 10^6/uL (4.40-6.38) Hgb 2.9 g/dL L* g/dL (13.7-17.5) POC Hgb Hct 8.4 % L* % (40.0-51.0) POC Hct MCV 82.4 fL fL (81.5-99.8) MCH 28.4 pg pg (27.9-34.1) MCHC 34.5 g/dL g/dL (32.4-36.7) RDW 14.8 % % (11.5-15.2) Plt Count 4 10^3/uL L* 10^3/uL (150-400) MPV 11.2 fL fL (8.7-11.7) Neut % (Auto) Not Reported Lymph % (Auto) Not Reported [place] % (Auto) Not Reported Eos % (Auto) Not Reported Baso % (Auto) Not Reported Nucleat RBC Rel Count 0.0 % % (0.0-0.2) Absolute Neuts (auto) Not Reported Absolute Lymphs (auto) Not Reported Absolute Monos (auto) Not Reported Absolute Eos (auto) Not Reported Absolute Basos (auto) Not Reported Absolute Nucleated RBC 0.00 10^3/uL 10^3/uL (0-0.01) Immature Gran % Not Reported Seg Neutrophils % 52 % % Lymphocytes % 40 % % Monocytes % 7 % % Metamyelocytes % 1 % % Immature Gran # Not Reported Absolute Seg Neuts 1.22 10^/uL L 10^/uL (1.70-6.50) Absolute Lymphocytes 0.94 10^3/uL L 10^3/uL (1.00-3.00) Absolute Monocytes 0.16 10^3/uL L 10^3/uL (0.30-0.80) Absolute Metamyelocyte 0.02 10^3/mL H 10^3/mL (0.00-0.00) Atypical Lymphocytes 1+ H Platelet Estimate DECREASED L (ADEQ) Microcytic Cells 2+ H Smear Review By Pending POC Sodium Sodium POC Potassium Potassium POC Chloride Chloride Carbon Dioxide Anion Gap POC BUN BUN Creatinine POC Creatinine Estimated GFR Glucose POC Glucose Calcium Total Bilirubin Conjugated Bilirubin Unconjugated Bilirubin AST ALT Alkaline Phosphatase Total Protein Albumin Patient ABO/Rh Antibody Screen Crossmatch IS Only Point of Care Test Results: 06/29/17 15:39 POC Sodium 133 L POC Potassium 3.9 POC Chloride 100 POC BUN 25 H POC Creatinine 1.2 POC Glucose 106 H Departure - Departure Disposition: [facility] Inpatient Acute Clinical Impression: Thrombocytopenia Anemia Qualifiers: Anemia type: unspecified type Qualified Code(s): D64.9 - Anemia, unspecified Condition: Serious
--- NOTE | 2017-06-29 15:56 | CPEKG ---
Heart Rate: 84 RR Interval: 714 P-R Interval: 140 QRSD Interval: 80 QT Interval: 372 QTC Interval: 440 P [place]: 22 QRS [place]: 13 T Wave [place]: 13 EKG Severity - BORDERLINE ECG - EKG Impression: SINUS RHYTHM EKG Impression: BORDERLINE T ABNORMALITIES, ANTERIOR LEADS Electronically Signed By: Eric Suggs 29-Jun-2017 16:49:08
[2017-06-29 16:09] LABS: PLATELET COUNT 4 10^3/uL (150-400)
[2017-06-29] MEDS ORDERED: ONDANSETRON 4 MG/2 ML VIAL IVP PRN (16:52)
[2017-06-29] MEDS ORDERED: ONDANSETRON DISINTEGRATING 4 MG TAB PO PRN (16:52)
[2017-06-29] MEDS ORDERED: ACETAMINOPHEN 325 MG TAB PO PRN (16:52)
[2017-06-29] MEDS ORDERED: BENZONATATE 100 MG CAP PO PRN (17:05)
[2017-06-29] MEDS ORDERED: LORazepam 1 MG TAB PO PRN (17:05)
[2017-06-29] MEDS ORDERED: predniSONE 20 MG TAB PO SCH (17:15)
--- NOTE | 2017-06-29 17:34 | GHP ---
[f rep st] HISTORY AND PHYSICAL DATE OF ADMISSION: 06/29/2017 CHIEF COMPLAINT: Shortness of breath. HISTORY OF PRESENT ILLNESS: The patient is a 72-year-old male with a history of diffuse large B-cell lymphoma, who presented to the emergency department today after routine outpatient labs showed a hemoglobin of 3 with a platelet count of 7000. He is followed by Dr. Luther Villagomez at the [facility] and was recently started on ibrutinib. He endorses epigastric abdominal pain after taking this medication. In addition, he has developed increasing shortness of breath and dyspnea on exertion this week. He complains of fatigue. He denies vomiting. He denies melena or bright red blood per rectum. His weakness has become quite profound. He is sent to the emergency department for blood transfusion. PAST MEDICAL SURGICAL HISTORY: 1. Diffuse large B-cell lymphoma. 2. History of autoimmune hemolytic anemia. Per [facility] this is not currently active though he is on high-dose prednisone. 3. History of right pleural effusion. 4. Atrial fibrillation. 5. Non melanoma skin cancer. 6. History of ankle surgery. MEDICATIONS: Please see [place] completed outpatient medication list. ALLERGIES: He has no known drug allergies. FAMILY HISTORY: His mother at age 91 of a stroke. SOCIAL HISTORY: The patient lives independently. He is an upholsterer. He reports occasional alcohol. He denies tobacco use. REVIEW OF SYSTEMS: A 10-point review of systems was performed and is negative as per HPI. OBJECTIVE: VITAL SIGNS: Temperature is 36.8, blood pressure 115/65, heart rate 84, respiratory rate 20. He is 100% on room air. GENERAL: The patient is awake, alert, oriented, in no acute distress. HEENT: Head atraumatic, normocephalic. Pupils equal, round, reactive to light. Extraocular muscles intact. Oropharynx is clear. Mucous membranes are moist. NECK: Supple. There is no JVD. HEART: Regular rate and rhythm without murmur. LUNGS: Clear to auscultation bilaterally. ABDOMEN: Soft, nondistended, nontender. Normoactive bowel sounds. EXTREMITIES: Are without cyanosis, clubbing, or edema. NEUROLOGIC: Exam is grossly nonfocal. LABORATORY DATA: CBC reveals a white blood cell count of 2.35 with a calculated absolute neutrophil count of 1222, hemoglobin 2.9, platelets 4. Basic metabolic panel reveals sodium 133, electrolytes otherwise normal. BUN elevated at 26, creatinine 1.0, blood sugar 106, total bilirubin 1.6, which is stable from his recent levels, alkaline phosphatase 154. EKG from the emergency department shows normal sinus rhythm without ST or T- wave changes suggestive of acute ischemia. ASSESSMENT/PLAN: The patient is a 72-year-old male with history of diffuse large B-cell lymphoma who is admitted to the hospital for profound anemia and thrombocytopenia in the setting of chemotherapy. 1. Pancytopenia, likely secondary to chemotherapy. He has no evidence of active bleeding. Hemoglobin is 2.9. Four units of packed red blood cells are ordered. We will recheck this in the morning. Check hemoccult given prednisone use. He is also receiving platelet transfusion for platelet count of 4000. I discussed the case with Oncology. They will consult. He does not need irradiated blood products. 2. Diffuse large B-cell lymphoma. He is taking daily ibrutinib. Oncology is aware of his admission and will consult. 3. History of autoimmune hemolytic anemia. Per his primary oncologist this is not felt to be an active process. Will begin to wean his high dose prednisone, as this could be placing him at risk for GI bleed. 4. Hyponatremia. This is mild with a sodium of 133. We will recheck this in the morning after blood transfusion. 5. Azotemia. This is likely pre renal given his severely low hemoglobin. We will follow this along with transfusions. 6. History of atrial fibrillation. He is currently in sinus rhythm, rate controlled. We will continue his amiodarone. 7. Code status: Patient is full code. 8. Deep venous thrombosis prophylaxis. Pharmacologic therapy is contraindicated given his low platelets and anemia. 9. Disposition: Patient is admitted to inpatient status in the step-down unit. I anticipate greater than 48 hours hospitalization for ongoing management of his severe pancytopenia. /[id number]/MODL MTDD
--- NOTE | 2017-06-29 18:02 | PDMN ---
Medical Necessity Medical necessity: C/M review: Patient meets INPT criteria under MCG M-35 Anemia, iron deficiency or unspecified: Acute profound anemia, thrombocytopenia , severe pancytopenia likely due chemotherapy, Hgb 2.9, Hct 8.4, platelet count 4000, hyponatemia - Na 133, azotemia, BUN 26, total bilirubin 1.6, Alk phos 154 requiring planned 4 units PRBCs, platelet transfusion, Oncology consult, ongoing cardiac monitoring, pulse oximetry, supplemental O2, in SDU, comorbid diffuse large B cell lymphoma treated with daily ibrutinib, history of autoimmune hemolytic anemia, right pleural effusion, atrial fibrillation, non melanoma skin cancer. anticipates > 2 MN LOS for ongoing med nec for eval and TX of above.
--- NOTE | 2017-06-29 18:19 | GCON ---
[f rep st] CONSULTATION HEMATOLOGY/ONCOLOGY CONSULTATION DATE OF CONSULTATION: 06/29/2017 HISTORY OF PRESENT ILLNESS: The patient is a pleasant, 72-year-old gentleman who is followed by my p artner, Dr. Luther Villagomez. He has a diagnosis of stage IVB diffuse large B-cell lymphoma. This was diag nosed in January 2018. He presented at that time with weight loss, night sweats, and significant francisco cytopenia due to bone marrow involvement. The patient was treated initially with 3 cycles of R-CHOP chemotherapy, but unfortunately developed d isease progression. He was then switched to Rituxan, gemcitabine, cisplatin, and dexamethasone, and received 1 cycle of this treatment in April. Unfortunately, this did not result in a clinical resp onse and he developed further progression. His clinical course has been complicated by persistent se eleazar pancytopenia due to significant residual bone marrow involvement from his lymphoma. He does not have autoimmune hemolytic anemia. He was recently transitioned to ibrutinib therapy. He began takin g ibrutinib this Sunday. He reports feeling progressively weak over the past 24 hours. He presented to the outpatient setting and was noted to have severe anemia. He was referred to the emergency department where he was found to have a hemoglobin of 2.9 with hematocrit of 8.4, as well as a platelet count of 4000. He is admi tted for packed red cell transfusion. He is surprisingly asymptomatic, reporting fatigue. He denies chest pain or dyspnea at rest. He denies any blood in the stool or black stools. He denies hematur ia. He denies abdominal pain. When seen this evening, he is accompanied by his and daughter. PAST MEDICAL HISTORY: 1. Diffuse large B-cell lymphoma as outlined above. 2. Atrial fibrillation. 3. Known squamous cell carcinoma involving the scalp, which has been managed conservatively in light of his ongoing lymphoma and treatment. PAST SURGICAL HISTORY: Unremarkable. SOCIAL HISTORY: Patient is a nonsmoker. He was previously working as an upholsterer. He admits to a history of fairly regular alcohol use, but is not using alcohol at the current time. FAMILY MEDICAL HISTORY: Noncontributory. REVIEW OF SYSTEMS: As outlined above. Remainder of 10-point review of systems was otherwise negativ e. The patient specifically denies any fevers, chills, or signs of recent infection. PHYSICAL EXAM: GENERAL: The patient is in no acute distress. Conjunctival pallor is present. He i s overall pale. He has an active squamous cell carcinoma on his upper scalp that is bandaged. HEART: Regular without murmur. LUNGS: Clear bilaterally. No wheeze. No rhonchi. No flank tenderness. ABDOMEN: Soft, nontender, nondistended. Spleen is nonpalpable. No visible skin rash. Trace bilate ral pedal edema present. Patient alert, oriented, and appropriate. LABORATORY STUDIES: From today, white count is 2350, hemoglobin 2.9, hematocrit 8.4, platelet count 4000, sodium 133, potassium 3.9, chloride 100, BUN 26, creatinine 1.0, bilirubin 1.6, calcium 9.5, T 26, ALT 64, alk phos 154. IMPRESSION: 1. Stage IVB diffuse large B-cell lymphoma, refractory to second-line chemotherapy (patient recently started on ibrutinib this past Sunday). 2. Pancytopenia. Due to significant marrow involvement from #1. 3. Symptomatic anemia. 4. Atrial fibrillation. The patient is a pleasant, 72-year-old gentleman with refractory diffuse large B-cell lymphoma. His disease has unfortunately progressed on both R-CHOP chemotherapy and RGDP chemotherapy. Dr. Villagomez re cently started him on ibrutinib. There was a delay in getting him the medication and he began taking this earlier this week. The patient has significant pancytopenia due to marrow involvement of his d iffuse large B-cell lymphoma. I was able to briefly discuss this case with my partner, Dr. Villagomez, wh o confirms this. The patient does not have any evidence of hemolytic anemia. He has a chronic mild hyperbilirubinemia, which is stable. The patient will receive transfusion of 4 units of packed red cells as well as transfusion of apheres ed platelets this evening. Hopefully, this will result in improvement of his symptoms. He does not demonstrate any signs or symptoms to suggest a source of bleeding as the cause of his anemia. He is being admitted to the hospital. He will be monitored closely. He is surprisingly asymptomatic for t he severe degree of anemia that he currently has. I think he could continue on his ibrutinib. He is on a fairly high dose of prednisone. I think this can be tapered. I confirmed this with Dr. Villagomez. I recommend reducing his prednisone to 40 mg andrew y for 3 days, then 20 mg daily for 3 days. Our service will continue to follow him during this hospital stay. The above plan was discussed with Dr. Palomino of the hospitalist service. I also discussed the plan with the patient and his family gerber garcia. His questions were answered. Total time for today's visit was approximately 45 minutes, of which greater than 50% was spent in cou nseling, care coordination. /[id number]/MODL
[2017-06-29] MEDS: FAMOTIDINE 20 MG TAB PO SCH (22:26)
[2017-06-29] MEDS: ACYCLOVIR 400 MG TAB PO SCH (22:26)
[2017-06-30 05:12] LABS: PLATELET COUNT 22 10^3/uL (150-400)
[2017-06-30] MEDS: ACYCLOVIR 400 MG TAB PO SCH ×2 (08:39→21:18)
[2017-06-30] MEDS: predniSONE 20 MG TAB PO SCH (08:39)
[2017-06-30] MEDS: FAMOTIDINE 20 MG TAB PO SCH ×2 (08:40→21:18)
[2017-06-30] MEDS: AMIODARONE HCL 200 MG TAB PO SCH (08:40)
[2017-06-30] MEDS: FOLIC ACID 1 MG TAB PO SCH (08:40)
--- NOTE | 2017-06-30 09:59 | HOSPPROG ---
Hospitalist Progress Note Assessment/Plan: #Severe pancytopenia: transfused 6 units RBCs, platelets -responded to blood, no e/o bleeding or hemolysis. -due to severe BM involvement #Diffuse B-cell lymphoma -Ibrutinib. Will cont pred taper #Atrial fibrillation: rate-controlled. Amiodarone. No AC with pancytopenia #Scalp SCC: not on treatment #Diet: regular #DVT ppx: SCDs #Disp: cont inpatient admission for serial labs. DC tomorrow if labs stable Subjective: not as weak today. No CP or SOB Objective: Vital Signs Temp Pulse Resp BP Pulse Ox 36.7 C 76 18 133/81 H 97 06/30/17 08:09 06/30/17 08:09 06/30/17 08:09 06/30/17 08:09 06/30/17 08:09 Laboratory Results 06/30/17 04:45 06/30/17 04:45 06/29/17 06/30/17 07/01/17 05:59 05:59 06:59 Intake Total 1777 Output Total 425 Balance 1352 - Physical Exam Constitutional: no apparent distress, other (pale) Eyes: PERRL Ears, Nose, Mouth, Throat: moist mucous membranes, other (palate petichiae) Cardiovascular: regular rate and rhythym Respiratory: no respiratory distress, no rales or rhonchi Gastrointestinal: normoactive bowel sounds Skin: other (scalp cancerous lesion), No rash Musculoskeletal: full muscle strength Neurologic: AAOx3, CN II-XII Intact Psychiatric: interacting appropriately ICD10 Worksheet Patient Problems: Problems Problem Status Onset Anemia Acute Thrombocytopenia Acute Acute respiratory failure with hypoxia Acute Edema Acute Hypoxia Acute Leukopenia Acute Neutropenic fever Acute
[2017-06-30 10:35] LABS: PLATELET COUNT 18 10^3/uL (150-400)
--- NOTE | 2017-06-30 10:49 | SOAPPROG ---
SOAP Progress Note Assessment/Plan: Assessment: 1. DLBCL, refractrory 2. Pancyopenia due to bone marrow involvement w/ lymphoma 3. Severe anemia due to #2. no evidence of hemolysis or bleeding responded appropriately to transfusion. Plan: - no further transfusions needed today - could d/c tomorrow if hgb stable - continue to taper prednisone, as no e/o hemolysis - continue ibrutinib for lymphoma 06/30/17 10:47 Subjective: feels much better after transfusion. Objective: exam: chronically ill, NAD Lungs CTAB CV RRR no MGR Abd: +BS NT ND Ext: 1+ edema Skin: no petechie, purpura Neuro: a+ox3 Vital Signs Temp Pulse Resp BP Pulse Ox 36.6 C 69 20 138/68 H 97 06/30/17 09:44 06/30/17 09:44 06/30/17 09:44 06/30/17 09:44 06/30/17 09:44 Laboratory Results 06/30/17 10:18 06/30/17 04:45 06/29/17 06/30/17 07/01/17 05:59 05:59 06:59 Intake Total 1777 Output Total 425 Balance 1352 ICD10 Worksheet Patient Problems: Problems Problem Status Onset Anemia Acute Thrombocytopenia Acute Acute respiratory failure with hypoxia Acute Edema Acute Hypoxia Acute Leukopenia Acute Neutropenic fever Acute
[2017-06-30] MEDS: CALCIUM CARBONATE 500 MG CHEWABLE TAB PO PRN ×2 (14:41→21:18)
--- NOTE | 2017-06-30 14:52 | ASMTCMCOM ---
CM Note CM Note Notes: Chart reviewed discussed in rounds. Pt admitted with profound anemia. Multiple transfusions. Stable to transfer to oncology. CM to follow. Date Signed: 06/30/2017 02:52 PM Electronically Signed By:Chanelle Hale RN
[2017-06-30] MEDS: IBRUTINIB 140 MG PO SCH (19:38)
[2017-07-01 04:58] LABS: PLATELET COUNT 14 10^3/uL (150-400)
[2017-07-01] MEDS: ACYCLOVIR 400 MG TAB PO SCH (08:40)
[2017-07-01] MEDS: FAMOTIDINE 20 MG TAB PO SCH (08:41)
[2017-07-01] MEDS: FOLIC ACID 1 MG TAB PO SCH (08:41)
[2017-07-01] MEDS: AMIODARONE HCL 200 MG TAB PO SCH (08:41)
[2017-07-01] MEDS: predniSONE 20 MG TAB PO SCH (08:41)
[2017-07-01] MEDS: IBRUTINIB 140 MG PO SCH (08:41)
[2017-07-01] MEDS: CALCIUM CARBONATE 500 MG CHEWABLE TAB PO PRN (08:47)
[2017-07-01 08:57] VITALS: O2SAT 94
[2017-07-01] MEDS ORDERED: ACETAMINOPHEN 325 MG TAB PO ONE (10:01)
--- NOTE | 2017-07-01 10:46 | SOAPPROG ---
SOAP Progress Note Assessment/Plan: Assessment: 1. DLBCL, refractrory 2. Pancyopenia due to bone marrow involvement w/ lymphoma 3. Severe anemia due to #2. no evidence of hemolysis or bleeding responded appropriately to RBC transfusion. Plan: - 1 unit platelets today, as plts 14K and falling - continue to taper prednisone, as no e/o hemolysis - continue ibrutinib for lymphoma - d/c to home with close outpt followup this week in our clinic. 06/30/17 10:47 07/01/17 10:45 Subjective: feeling much better today. Objective: exam unchanged Vital Signs Temp Pulse Resp BP Pulse Ox 36.7 C 56 L 17 142/80 H 94 07/01/17 08:00 07/01/17 08:00 07/01/17 08:00 07/01/17 08:00 07/01/17 08:00 Laboratory Results 07/01/17 04:30 06/30/17 04:45 06/30/17 07/01/17 07/02/17 04:59 05:59 05:59 Intake Total Output Total Balance ICD10 Worksheet Patient Problems: Problems Problem Status Onset Anemia Acute Thrombocytopenia Acute Acute respiratory failure with hypoxia Acute Edema Acute Hypoxia Acute Leukopenia Acute Neutropenic fever Acute
[2017-07-01 12:35] VITALS: BP 154/87; PULSE 71; RESP 18; TEMP 98.6
--- NOTE | 2017-07-01 14:35 | GDS ---
[f rep st] DISCHARGE SUMMARY DISCHARGE DIAGNOSES: 1. Diffuse large B-cell lymphoma, refractory. 2. Pancytopenia due to bone marrow involvement. 3. Severe anemia. HISTORY OF PRESENT ILLNESS: A 72-year-old male, with history of diffuse large B -cell lymphoma, refractory to treatment, now on ibrutinib, presented with severe anemia. He presented to the ER after routine labs showed a hemoglobin of 3 and platelet count of 7000. He is followed by Dr. Villagomez at [facility]. He has some abdominal pain after taking this medication and fatigue. He developed significant shortness of breath and dyspnea with exertion. No chest pain. No melena, hematemesis, or bright red blood per rectum. HOSPITAL COURSE BY PROBLEM: 1. Severe anemia: Hemoglobin of 3 at time of admission. No evidence of bleeding or hemolysis. Secondary to bone marrow involvement with lymphoma. He was transfused 6 units of blood. H and H remained stable today. 2. Panyytopenia, again due to lymphoma. Transfuse 1 unit platelets day of discharge. 3. Diffuse large B-cell lymphoma: Followed by Dr. Villagomez. Per Oncology, continue ibrutinib. He needs close followup with Dr. Villagomez this week for repeat labs. 4. Scalp squamous cell carcinoma: Continue wound care. 5. Atrial fibrillation. Continue amiodarone. Not on AC with pancytopenia. DISPOSITION: Patient is stable for discharge home with his . MEDICATIONS: No medications. FOLLOWUP: 1. Dr. Villagomez within 1-2 days. 2. Repeat CBC. PHYSICAL EXAM: VITAL SIGNS: Today, temperature 37, blood pressure 154/87, heart rate in the 70s, respirations 18, 94% on room air. GENERAL: Sitting up in bed, mildly pale, but no acute distress. HEENT: PERRLA. EOMI. Moist mucous membranes. CV: Regular rate and rhythm. No murmurs, gallops, rubs. No lower extremity edema. LUNGS: Clear. No crackles, wheezing. ABDOMEN: Soft, nontender, nondistended. Positive bowel sounds. : No Reed. MUSCULOSKELETAL: 5/5 upper/lower extremities. NEURO: 2-12 intact. PSYCH: Alert, oriented x3. SKIN: Scalp cancerous lesion dressed. /[id number]/MODL MTDD
== END 2017-07-01 14:28 | disposition home or self-care (01) | DRG 809 ==
LOC: F2N 18:40 → F1N 06-30 14:30
PROVIDERS: ADMIT Hospitalist; ATTEND Hospitalist
PROC: 30233N1 Transfusion of Nonautologous Red Blood Cells into Peripheral Vein, Percutaneous Approach (ICD-10-PCS; principal; 2017-06-29)
PROC: 30233R1 Transfusion of Nonautologous Platelets into Peripheral Vein, Percutaneous Approach (ICD-10-PCS; principal; 2017-06-29)
DX: D61.810 Antineoplastic chemotherapy induced pancytopenia (principal); C83.30 Diffuse large B-cell lymphoma, unspecified site; I48.91 Unspecified atrial fibrillation; C44.42 Squamous cell carcinoma of skin of scalp and neck
CPT/HCPCS: 82947-QW; J1200; J1642; J7512; P9016; P9037; P9040

== ENCOUNTER 2017-07-07 09:39 | Outpatient (CLI) | payer OTHER ==
[2017-07-07] MEDS ORDERED: ACETAMINOPHEN 325 MG TAB PO ONE (10:30)
[2017-07-07] MEDS ORDERED: diphenhydrAMINE 25 MG CAP PO PRN (11:10)
== END 2017-07-07 11:50 | disposition home or self-care (01) ==
LOC: FOBOP 09:39
PROVIDERS: ATTEND Internal Medicine Hematology & Oncology
PROC: 30233R1 Transfusion of Nonautologous Platelets into Peripheral Vein, Percutaneous Approach (ICD-10-PCS; principal; 2017-07-07)
DX: C85.90 Non-Hodgkin lymphoma, unspecified, unspecified site (principal)
CPT/HCPCS: 36430; P9073; J1642

== ENCOUNTER 2017-07-17 10:06 | Outpatient (CLI) | payer OTHER ==
[2017-07-17] MEDS ORDERED: ACETAMINOPHEN 325 MG TAB PO PRN (10:28)
[2017-07-17] MEDS ORDERED: diphenhydrAMINE 25 MG CAP PO PRN (10:29)
== END 2017-07-17 13:45 | disposition home or self-care (01) ==
LOC: FOBOP 10:06
PROVIDERS: ATTEND Internal Medicine Hematology & Oncology
PROC: 30233N1 Transfusion of Nonautologous Red Blood Cells into Peripheral Vein, Percutaneous Approach (ICD-10-PCS; principal; 2017-07-17)
PROC: 30233R1 Transfusion of Nonautologous Platelets into Peripheral Vein, Percutaneous Approach (ICD-10-PCS; principal; 2017-07-17)
DX: C85.90 Non-Hodgkin lymphoma, unspecified, unspecified site (principal)
CPT/HCPCS: 36430; P9016; P9040; P9073; J1642

== ENCOUNTER 2017-07-23 15:22 | Outpatient (CLI) | payer OTHER ==
[2017-07-23] MEDS ORDERED: diphenhydrAMINE 25 MG CAP PO ONE ×2 (15:52→16:00)
[2017-07-23] MEDS ORDERED: ACETAMINOPHEN 325 MG TAB ONE (15:52)
[2017-07-23] MEDS ORDERED: ACETAMINOPHEN 325 MG TAB PO ONE (16:00)
== END 2017-07-23 21:54 | disposition home or self-care (01) ==
LOC: FOBOP 15:22
PROVIDERS: ATTEND Internal Medicine Hematology & Oncology
PROC: 30233N1 Transfusion of Nonautologous Red Blood Cells into Peripheral Vein, Percutaneous Approach (ICD-10-PCS; principal; 2017-07-23)
PROC: 30233R1 Transfusion of Nonautologous Platelets into Peripheral Vein, Percutaneous Approach (ICD-10-PCS; principal; 2017-07-23)
DX: C85.90 Non-Hodgkin lymphoma, unspecified, unspecified site (principal)
CPT/HCPCS: 36430; P9016; P9037; P9040

== ENCOUNTER 2017-07-24 09:22 | Emergency (ER) | payer OTHER ==
[2017-07-24 09:30] VITALS: BP 103/70; PULSE 97; RESP 16; TEMP 97.7; O2SAT 98
--- NOTE | 2017-07-24 09:49 | EDPHY ---
H & P Stated Complaint: family wnts him checked out. pt has no complaints.feeling better Time Seen by Provider: 07/24/17 09:40 - Personal History Current Tetanus/Diphtheria Vaccine: No Current Tetanus Diphtheria and Acellular Pertussis (TDAP): No - Medical/Surgical History Hx Asthma: No Hx Chronic Respiratory Disease: No Hx Diabetes: No Hx Cardiac Disease: Yes Hx Renal Disease: No Hx Cirrhosis: No Hx Alcoholism: No Hx HIV/AIDS: No Hx Splenectomy or Spleen Trauma: No Other PMH: htn, lymphoma-- non hodgkin's, a fib, tinea corporis, thrombocytopenia, febrile neutropenia, drug induced neutropenia, hypoxia, ajemia of neoplastic disease, hypokalemia - Social History Smoking Status: Never smoked Constitutional: Initial Vital Signs Temperature (C) 36.5 C 07/24/17 09:27 Heart Rate 97 07/24/17 09:27 Respiratory Rate 16 07/24/17 09:27 Blood Pressure 103/70 07/24/17 09:27 O2 Sat (%) 98 07/24/17 09:27 O2 Delivery Mode Room Air Allergies/Adverse Reactions: No Known Allergies Allergy (Verified 05/28/17 11:37) Home Medications: Medication Instructions Recorded Acyclovir [Zovirax 400 mg (*)] 400 mg PO BID #60 tab 02/14/17 Multivitamins [Multivitamin (*)] 1 each PO DAILY 03/14/17 Amiodarone HCl 1 tab PO DAILY 04/27/17 Benzonatate [Tessalon Pearles] 100 mg PO Q6 PRN 05/28/17 LORazepam [Lorazepam] 1 mg PO Q4 PRN 05/28/17 Potassium Cl [Klor-Con 20 meq (*)] 20 meq PO BID 05/28/17 Folic Acid [Folic Acid 1 MG (*)] 1 mg PO DAILY #30 tab 05/31/17 Acetaminophen [Tylenol ES 500 mg 500 mg PO DAILY PRN 06/29/17 (*)] Ibrutinib [Imbruvica] 560 mg PO DAILY 06/30/17 predniSONE 40 mg PO DAILY tablet 07/01/17 Medical Decision Making ED Course/Re-evaluation: CHIEF COMPLAINT: Family wanted patient checked out HISTORY OF PRESENT ILLNESS: 72-year-old male whose is here with back pain after helping to prevent him from falling. He has lymphoma. He received chemo yesterday. He always gets a little lightheaded and dizzy after his chemo treatment. He states he feels much better today than yesterday. His hurt her back while lifting him today and consequently the family called tab transported here to the emergency department despite the fact that he does not have any complaints. They felt like he would have sprinkler fitter. REVIEW OF SYSTEMS: A 10 point review of systems was performed and is negative with the exception of the elements mentioned in the history of present illness. PHYSICAL EXAM: HR, BP, O2 Sat, RR. Temp noted General Appearance: Alert, well hydrated, appropriate, and non-toxic appearing. Head: Atraumatic without scalp tenderness or obvious injury Eyes: Pupils equal, round, reactive to light and accommodation, EOMI, no trauma , no injection. Ears: Clear bilaterally, no perforation, normal landmarks Nose: Atraumatic, no rhinorrhea, clear. Throat: There is no erythema or exudates, no lesions, normal tonsils, mucus membranes moist. Neck: Supple, 2+ carotid upstroke, nontender, no lymphadenopathy. Respiratory: No retractions, no distress, no wheezes, and no accessory muscle use. Lungs are clear to auscultation bilaterally. Cardiovascular: Regular rate and rhythm, no murmurs, rubs, or gallops. Bilateral carotid, radial, dorsalis pedis, and posterior tibial pulses intact. Good capillary refill all extremities. Gastrointestinal: Abdomen is soft, nontender, non-distended, no masses, no rebound, no guarding, no peritoneal signs. Musculoskeletal: Normal active ROM of all extremities, atraumatic. Neurological: Alert, appropriate, and interactive. The patient has normal DTRs and non-focal cranial nerves, motor, sensory, and cerebellar exam. Skin: No rashes, good turgor, no nodules on palpation. Past medical history: Lymphoma Past surgical history: Noncontributory Family history: Noncontributory Social history: , retired, does not abuse tobacco drugs or alcohol DIFFERENTIAL DIAGNOSIS: Includes but is not limited to: Post chemotherapy weakness, stroke, neurologic deficits, musculoskeletal deficits MEDICAL DECISION MAKING: This patient has no complaints and feels better than yesterday. The family just wanted him"checked out". He has no complaints whatsoever. His has low back pain I have also treated her. Both patients will be discharged home and there is a daughter here to help. Departure - Departure Disposition: Home, Routine, Self-Care Clinical Impression: Weakness Condition: Good Instructions: Weakness (ED) Referrals: Patient,NotPresent [Primary Care Provider] - As per Instructions
== END 2017-07-24 10:15 | disposition home or self-care (01) ==
LOC: EDUNIT#
DX: R53.1 Weakness (principal); I10 Essential (primary) hypertension